=== PATIENT | female | born 1945 | race Caucasian/White ===

== ENCOUNTER 2016-04-19 10:53 | Inpatient (IN) | payer MEDICARE, BC, OTHER ==
[2016-04-19] MEDS ORDERED: ASPIRIN 81 MG TABLET, CHEWABLE PO ONE (11:59)
[2016-04-19 12:06] LABS: ABSOLUTE EOSINOPHILS # (AUTO) 0.2 10^3/uL (0.0-0.6); ABSOLUTE MONOCYTES (AUTO) 0.6 10^3/uL (0.1-1.4); ABSOLUTE NEUT (AUTO) 7.9 10^3/uL (1.7-8.2); BASOPHILS % (AUTO) 0.3 % (0-2); HEMATOCRIT 29.1 % (36.0-47.0); HEMOGLOBIN 9.8 g/dL (12.0-15.5); HGB HCT DIFFERENCE 0.3; LYMPHOCYTES % (AUTO) 9.9 % (13-45); MEAN CORPUSCULAR HEMOGLOBIN 32.7 pg (27.0-33.4); MEAN CORPUSCULAR HGB CONC 33.6 g/dL (32.0-36.0); MEAN CORPUSCULAR VOLUME 97 fl (80-97); MONOCYTES % (AUTO) 6.1 % (3-13); RED BLOOD COUNT 2.99 10^6/uL (3.72-5.28); RED CELL DISTRIBUTION WIDTH 15.4 % (11.5-14.0); SEGMENTED NEUTROPHILS % (AUTO) 81.7 % (42-78); WHITE BLOOD COUNT 9.7 10^3/uL (4.0-10.5)
[2016-04-19 12:25] LABS: ALANINE AMINOTRANSFERASE 26 U/L (9-52); ALBUMIN 3.3 g/dL (3.5-5.0); ALKALINE PHOSPHATASE 72 U/L (38-126); ANION GAP 10 (5-19); ASPARTATE AMINO TRANSFERASE 21 U/L (14-36); BILIRUBIN,TOTAL 0.6 mg/dL (0.2-1.3); BLOOD UREA NITROGEN 44 mg/dL (7-20); CALCIUM 9.2 mg/dL (8.4-10.2); CARBON DIOXIDE 22 mmol/L (22-30); CHLORIDE 97 mmol/L (98-107); CREATINE KINASE 101 U/L (30-135); CREATININE RESULT 3.06 mg/dL (0.52-1.25); GLUCOSE 217 mg/dL (75-110); POTASSIUM 5.3 mmol/L (3.6-5.0); SODIUM 129.1 mmol/L (137-145); TOTAL PROTEIN 6.2 g/dL (6.3-8.2)
[2016-04-19 12:53] LABS: CREATINE KINASE MB < 0.22 ng/mL (<4.55); TROPONIN I < 0.012 ng/mL
[2016-04-19] MEDS ORDERED: NORMAL SALINE 1000 ML 500 ML IV ONE (14:30)
--- NOTE | 2016-04-19 14:50 | ER Document Report ---
ED General - General Chief Complaint: Near Syncope Stated Complaint: WEAKNESS TRAVEL OUTSIDE OF THE [place] IN LAST 30 DAYS: No - HPI Patient complains to provider of: syncope generalized weakness Notes: Patient states coming in today for evaluation of syncope. Patient has history diabetes hypertension states she has been compliant with her medications. States no new medications in the last 2 weeks. Patient denies fevers chills nausea vomiting chest pain abdominal pain prior to after our during her physical episode. Patient states her sacral episode occurred while in the shower states she sat down to take a shower when next thing she remembers her was trying to arouse your patient is currently ANO 3. Family at bedside son-in-law states patient had multiple falls in the past few days. - Related Data Allergies/Adverse Reactions: codeine [Codeine] Allergy (Unknown, Verified 11/12/14 21:25) itching Cough medicine with Codeine Allergy (Intermediate, Uncoded 11/12/14 21:25) Hyperactivity IV contrast dye Allergy (Unknown, Uncoded 11/12/14 21:25) Kidney failure Home Medications: Current Home Medications Allopurinol [Zyloprim 100 mg Tablet] 200 mg PO DAILY 04/19/16 [History] Anastrozole [Arimidex 1 mg Tablet] 1 mg PO DAILY 04/19/16 [History] Carvedilol [Coreg 12.5 mg Tablet] 25 mg PO Q12 04/19/16 [History] Docusate Sodium [Colace 100 mg Capsule] 100 mg PO HSP PRN 04/19/16 [History] Ergocalciferol (Vitamin D2) [Vitamin D2] 50,000 unit PO TUFR@1000 04/19/16 [ History] Furosemide [Lasix] 20 mg PO DAILY 04/19/16 [History] Glyburide [Diabeta 5 mg Tablet] 5 mg PO BID 04/19/16 [History] Isosorbide Mononitrate [Imdur 60 mg Tablet.er] 60 mg PO QAM 04/19/16 [History] Losartan Potassium [Cozaar 50 mg Tablet] 50 mg PO DAILY 04/19/16 [History] Magnesium Oxide [Mag-Ox 400 mg Tablet] 400 mg PO DAILY 04/19/16 [History] Pantoprazole Sodium [Protonix] 40 mg PO QAM 04/19/16 [History] Sitagliptin Phosphate [Januvia 25 mg Tablet] 25 mg PO BID 04/19/16 [History] Past Medical History - Social History Smoking Status: Unknown if Ever Smoked Family History: Reviewed & Not Pertinent - Past Medical History Cardiac Medical History: Reports: Hx Congestive Heart Failure, Hx Coronary Artery Disease - stent placed, Hx Heart Attack, Hx Hypertension Pulmonary Medical History: Reports: Hx Asthma, Hx Pneumonia Denies: Hx Bronchitis, Hx COPD, Hx Sleep Apnea, Hx Tuberculosis Neurological Medical History: Reports: Hx Cerebrovascular Accident. Denies: Hx Seizures Endocrine Medical History: Reports: Hx Diabetes Mellitus Type 1, Hx Diabetes Mellitus Type 2. Denies: Hx Graves' Disease, Hx Hyperthyroidism, Hx Hypothyroidism Renal/ Medical History: Denies: Hx End Stage Renal Disease, Hx Peritoneal Dialysis Malignancy Medical History: Reports: Hx Breast Cancer - L GI Medical History: Reports: Hx Gastroesophageal Reflux Disease. Denies: Hx Liver Failure Musculoskeltal Medical History: Reports Hx Arthritis Psychiatric Medical History: Denies: Hx Depression Past Surgical History: Reports: Hx Cardiac Catheterization - 1X stent, Hx Section, Hx Cholecystectomy, Hx Mastectomy - L 08/23/11, Hx Tubal Ligation. Denies: Hx Hysterectomy, Hx Pacemaker - Immunizations Hx Diphtheria, Pertussis, Tetanus Vaccination: Yes Hx Pneumococcal Vaccination: 11/12/10 Review of Systems - Review of Systems Constitutional: No symptoms reported EENT: No symptoms reported Cardiovascular: Syncope Respiratory: No symptoms reported Gastrointestinal: No symptoms reported Genitourinary: No symptoms reported Female Genitourinary: No symptoms reported Musculoskeletal: No symptoms reported Skin: No symptoms reported Hematologic/Lymphatic: No symptoms reported Neurological/Psychological: No symptoms reported -: Yes All other systems reviewed and negative Physical Exam - Vital signs Vitals: Temp Resp BP Pulse Ox 97.2 F 15 117/58 L 98 04/19/16 11:08 04/19/16 11:08 04/19/16 11:08 04/19/16 11:08 Interpretation: Normal - General General appearance: Appears well, Alert - HEENT Head: Normocephalic, Atraumatic Eyes: Normal Pupils: PERRL - Respiratory Respiratory status: No respiratory distress Chest status: Nontender Breath sounds: Normal Chest palpation: Normal - Cardiovascular Rhythm: Regular Heart sounds: Normal auscultation Murmur: No - Abdominal Inspection: Normal Distension: No distension Bowel sounds: Normal Tenderness: Nontender Organomegaly: No organomegaly - Back Back: Normal, Nontender - Extremities General upper extremity: Normal inspection, Nontender, Normal color, Normal ROM , Normal temperature General lower extremity: Normal inspection, Nontender, Edema, Normal color, Normal ROM, Normal temperature. No: Jace's sign - Neurological Neuro grossly intact: Yes Cognition: Normal Orientation: AAOx4 Bee Coma Scale Eye Opening: Spontaneous Bee Coma Scale Verbal: Oriented Carey Coma Scale Motor: Obeys Commands Carey Coma Scale Total: 15 Speech: Normal Motor strength normal: LUE, RUE, LLE, RLE Sensory: Normal - Psychological Associated symptoms: Normal affect, Normal mood - Skin Skin Temperature: Warm Skin Moisture: Dry Skin Color: Normal Course - Re-evaluation Re-evalutation: 04/19/16 15:52 Patient's lab work shows hyperkalemia hyponatremia acute on chronic renal failure chronic anemia CT scan shows a subacute new right temporal infarction. Patient has yet to give us a urine sample IV fluids have been ordered. Patient' s orthostatics are negative. EKG troponin is also negative 04/19/16 15:53 Patient's case stress with hospitalist patient will be admitted for further evaluation of her syncopal episode and the above-stated laboratory and radiographical findings. - Vital Signs Vital signs: Temp Pulse Resp BP Pulse Ox 98.8 F 79 20 121/55 L 94 04/21/16 13:25 04/21/16 13:25 04/21/16 13:25 04/21/16 13:25 04/21/16 13:25 - Laboratory Result Diagrams: 04/19/16 11:00 04/20/16 03:38 Laboratory results interpreted by me: 04/19/16 04/19/16 11:00 11:00 RBC 2.99 L Hgb 9.8 L Hct 29.1 L RDW 15.4 H Seg Neutrophils % 81.7 H Lymphocytes % 9.9 L Sodium 129.1 L Potassium 5.3 H Chloride 97 L BUN 44 H Creatinine 3.06 H Est GFR ( Amer) 18 L Est GFR (Non-Af Amer) 15 L Glucose 217 H Total Protein 6.2 L Albumin 3.3 L Discharge - Discharge Clinical Impression: Chronic kidney disease, stage IV (severe), Hyperkalemia, subacute infarction right temporal Syncope Qualifiers: Syncope type: unspecified Qualified Code(s): R55 - Syncope and collapse Diabetes Qualifiers: Diabetes mellitus type: type 1 Diabetes mellitus complication status: without complication Qualified Code(s): E10.9 - Type 1 diabetes mellitus without complications Condition: Good Disposition: ADMITTED INPATIENT Admitting Provider: Prabhu Pennington [facility] Admitted: Telemetry
[2016-04-19] MEDS ORDERED: DEXTROSE 50%-WATER 25 GM/50 ML DISP.SYRIN IV PRN ×2 (16:17)
[2016-04-19] MEDS ORDERED: ACETAMINOPHEN 325 MG TABLET PO PRN (16:17)
[2016-04-19] MEDS ORDERED: DEXTROSE 40% GEL 15 GM TUBE PO PRN ×2 (16:17)
[2016-04-19] MEDS ORDERED: ONDANSETRON HCL INJ/PF 4 MG/2 ML SDV IV PRN (16:17)
[2016-04-19] MEDS ORDERED: GLUCAGON,HUMAN RECOMB 1 MG INJ IM PRN (16:17)
--- NOTE | 2016-04-19 16:45 | PDOC H&P ---
History of Present Illness Admission Date/PCP: 04/19/16 Patient complains of: LOC History of Present Illness: JENNIFER GRUBBS is a 71 year old female presents to the emergency department from home with sudden loss of consciousness. She awoke her usual state of health complaining of a new left-sided headache that was sharp stabbing over the left temporal lobe without associated vision or hearing loss and no numbness or tingling no slurred speech noted unilateral weakness no alleviating or exacerbating factors and nonradiating. She was able to get herself out of bed performing usual morning routine and as she was climbing into the stand up shower she felt weak and sat on the shower chair and awoke an unknown time later with her standing over her screaming and yelling to arouse her. Apparently her foot had occluded the drain and water had poured out of the shower into the adjoining bedroom alerting her there was a problem. He found her slumped over against the wall and unarousable for an unknown period of time. EMS was alerted on arrival her blood pressure was initially low systolic pressure only 80, IV was started IV fluid bolus given in route and she was transported to the ER for further evaluation. In the emergency department CT scan shows a subacute right lateral temporal lobe infarct, new when compared to prior CT scan of the head on 04/04/2016. We were asked to admit for further evaluation and management. By the time I evaluated her she was back to her baseline, without complaint. She is followed by Dr. Gonzales as her PCP, Dr. 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 Darby as her radio operator with a history of acute [place] and stent placement with ischemic cardiomyopathy and last known EF of less than 30% over 2 years ago on echocardiogram status post ICD placement, Dr. Amarjit Swartz for left breast cancer status post left mastectomy and lymph node dissection 2 positive nodes but no chemotherapy or radiation though she remains on hormone therapy. 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 She notes her radio operator was out of town 2 months ago and so she was seen by a partner who is unaware of her prior medical history and reportedly "changed all her meds" including increasing her aspirin to 325 mg daily and discontinuing the Plavix. Past Medical History Cardiac Medical History: Reports: Congestive Heart Failure, Coronary Artery Disease - stent placed, Myocardial Infarction, Hypertension Denies: Heart Murmur Pulmonary Medical History: Reports: Asthma, Pneumonia Denies: Bronchitis, Chronic Obstructive Pulmonary Disease (COPD), Sleep Apnea , Tuberculosis Neurological Medical History: Denies: Seizures Endocrine Medical History: Reports: Diabetes Mellitus Type 1, Diabetes Mellitus Type 2 Denies: Hyperthyroidism, Hypothyroidism Renal/ Medical History: Denies: End Stage Renal Disease Malignancy Medical History: Reports: Breast Cancer - L GI Medical History: Reports: Gastroesophageal Reflux Disease Musculoskeltal Medical History: Reports: Arthritis Psychiatric Medical History: Denies: Depression Hematology: Reports: Anemia Past Surgical History Past Surgical History: Reports: Cardiac Catheterization - 1X stent, Section, Cholecystectomy, Mastectomy - L 08/23/11, Tubal Ligation Denies: Hysterectomy, Pacemaker Social History Smoking Status: Unknown if Ever Smoked Frequency of Alcohol Use: None Hx Recreational Drug Use: No Hx Prescription Drug Abuse: No - Advance Directive Resuscitation Status: Full Code Family History Family History: Reviewed & Not Pertinent Parental Family History Reviewed: Yes Children Family History Reviewed: Yes Sibling(s) Family History Reviewed.: Yes Medication/Allergy Home Medications: Allopurinol [Zyloprim 100 mg Tablet] 100 mg PO DAILY 06/21/11 Aspirin Ec 325 mg PO DAILY 06/21/11 Coreg 25 mg PO BID 06/21/11 Furosemide [Lasix 20 mg Tablet] 20 mg PO Q2DAYS 06/21/11 Glyburide [Diabeta] 5 mg PO DAILY 06/21/11 Isosorbide 60 mg PO DAILY 06/21/11 Tolterodine Tartrate [Detrol LA] 2 mg PO DAILY 06/21/11 Vitamin D 50,000 units PO TUFR 06/21/11 Anastrozole [Arimidex 1 mg Tablet] 1 mg PO DAILY 10/02/11 Hydrocodone Bit/Acetaminophen [Vicodin 5-325 mg Tablet] 1 - 2 tab PO ASDIR PRN 10/07/11 Ezetimibe [Zetia 10 mg Tablet] 10 mg PO QPM 06/18/14 Hydralazine HCl [Apresoline 25 mg Tablet] 25 mg PO BID 06/18/14 Lorazepam 0.5 mg PO PRN PRN 06/18/14 Pantoprazole Sodium 40 mg PO QAM 06/18/14 Simvastatin [Zocor 20 mg Tablet] 20 mg PO QPM 06/18/14 Magnesium Oxide [Mag-Ox 400 mg Tablet] 400 mg PO DAILY #30 tablet 06/22/14 Amox Tr/Potassium Clavulanate [Augmentin 500-125 Tablet] 1 tab PO Q12 #12 tablet 11/02/14 Allergies/Adverse Reactions: codeine [Codeine] Allergy (Unknown, Verified 11/12/14 21:25) itching Cough medicine with Codeine Allergy (Intermediate, Uncoded 11/12/14 21:25) Hyperactivity IV contrast dye Allergy (Unknown, Uncoded 11/12/14 21:25) Kidney failure Review of Systems Constitutional: PRESENT: headache(s). ABSENT: chills, fever(s), weight gain, weight loss Eyes: ABSENT: visual disturbances Ears: ABSENT: hearing changes Nose, Mouth, and Throat: ABSENT: vertigo Cardiovascular: ABSENT: chest pain, dyspnea on exertion, edema, orthropnea, palpitations Respiratory: ABSENT: cough, hemoptysis Gastrointestinal: ABSENT: abdominal pain, constipation, diarrhea, hematemesis, hematochezia, nausea, vomiting Genitourinary: ABSENT: dysuria, hematuria Musculoskeletal: ABSENT: joint swelling Integumentary: ABSENT: rash, wounds Neurological: PRESENT: memory loss, syncope. ABSENT: abnormal gait, abnormal speech, confusion, dizziness, focal weakness, numbness, paresthesias, tingling Psychiatric: ABSENT: anxiety, depression Endocrine: ABSENT: cold intolerance, heat intolerance, polydipsia, polyuria Hematologic/Lymphatic: ABSENT: easy bleeding, easy bruising Physical Exam Vital Signs: Temp Pulse Resp BP Pulse Ox 97.2 F 72 13 148/67 H 98 04/19/16 11:08 04/19/16 12:32 04/19/16 16:01 04/19/16 16:01 04/19/16 16:01 PHYSICAL EXAM GENERAL: NAD; well developed, well nourished; mild obese; alert and oriented to person, place, time, situation; speech clear and lucid HEENT: normocephalic, atraumatic; EOMI, PERRLA, no conjunctival injection, no scleral icterus; oral mucosa moist,; neck supple, no LAD, normal ROM RESPIRATORY: no accessory muscle use, no increased WOB, good air entry bilaterally; no wheezes, rales, rhonchi; no inspiratory crackles CARDIO: no JVD; RRR; soft left-sided crescendo-decrescendo holo-systolic murmur at second intercostal space, nonradiating; no tachycardia; right anterior chest wall ICD pocket clean dry and intact VASCULAR: no carotid bruit; no abdominal bruit; no pallor; 2+ radial, DP pulse ; normal capillary refill; left AV fistula palpable thrill and audible bruit noted GI: soft; nondistended; normal bowel sounds; no hepato spleno megaly; no rebound, rigidity, guarding; nontender NEURO: normal patella reflexes; decreased sensation right lateral lower extremity below the knee, right lateral forearm, right cheek; normal motor function; no dysarthria; no nystagmus; tongue protrudes midline; normal finger to nose; able to cross midline with finger to ear MSK: 5/5 strength; normal ROM hips; no tenderness; bilateral knee contusions, no overlying erythema, no joint effusions EXTREMITIES: no calf tender; no palpable cords in calf; no clubbing, cyanosis , pedal edema PSYCH: normal affect, normal mood SKIN: warm; moist; no petechiae; no telengectasias; no jaundice; no rash Results Laboratory Results: 04/19/16 11:00 04/19/16 11:00 04/19/16 04/19/16 11:00 11:00 WBC 9.7 RBC 2.99 L Hgb 9.8 L Hct 29.1 L MCV 97 MCH 32.7 MCHC 33.6 RDW 15.4 H Plt Count 190 Seg Neutrophils % 81.7 H Lymphocytes % 9.9 L Monocytes % 6.1 Eosinophils % 2.0 Basophils % 0.3 Absolute Neutrophils 7.9 Absolute Lymphocytes 1.0 Absolute Monocytes 0.6 Absolute Eosinophils 0.2 Absolute Basophils 0.0 Sodium 129.1 L Potassium 5.3 H Chloride 97 L Carbon Dioxide 22 Anion Gap 10 BUN 44 H Creatinine 3.06 H Est GFR ( Amer) 18 L Est GFR (Non-Af Amer) 15 L Glucose 217 H Calcium 9.2 Total Bilirubin 0.6 AST 21 ALT 26 Alkaline Phosphatase 72 Total Protein 6.2 L Albumin 3.3 L 04/19/16 04/19/16 11:00 11:00 Creatine Kinase 101 CK-MB (CK-2) < 0.22 Troponin I < 0.012 Labs reviewed, renal function appears to be near baseline, sodium is slightly lower than normal. Impressions: Chest X-Ray 04/19/16 11:59 IMPRESSION: NO ACUTE RADIOGRAPHIC FINDING IN THE CHEST. Head CT 04/19/16 12:19 IMPRESSION: Subacute nonhemorrhagic infarct in the right lateral temporal lobe , new compared to outside CT from 04/04/2016 No acute findings on today's study Status: Image reviewed by me - Agree with radiology Assessment & Plan - Diagnosis (1) CVA (cerebral vascular accident) Qualifiers: CVA mechanism: unspecified Qualified Code(s): I63.9 - Cerebral infarction, unspecified Is this a current diagnosis for this admission?: YesPlan: Likely accounts for her presentation. We will check bilateral carotid Dopplers. Lipids and A1c in the morning. Change to Plavix from aspirin. Physical, occupational, speech therapy. Statin therapy. (2) Chronic kidney disease, stage IV (severe) Is this a current diagnosis for this admission?: YesPlan: Appears to be at baseline. BENTLEY inhibitor/ARB relatively contraindicated. We' ll need to consult with nephrology prior to initiating these medications. (3) Diabetes Qualifiers: Diabetes mellitus type: type 1 Diabetes mellitus complication status: without complication Qualified Code(s): E10.9 - Type 1 diabetes mellitus without complications Is this a current diagnosis for this admission?: YesPlan: Cover with sliding scale insulin. Check A1c in the morning. (4) Hyperkalemia Is this a current diagnosis for this admission?: YesPlan: Chronic or related to her underlying kidney disease, another contraindication for use of BENTLEY inhibitor and ARB. (5) Anemia in CKD (chronic kidney disease) Is this a current diagnosis for this admission?: YesPlan: Monitor H&H, no sign of acute blood loss. (6) Coronary artery disease Qualifiers: Coronary Disease-Associated Artery/Lesion type: [place] artery Associated angina: without angina Is this a current diagnosis for this admission?: YesPlan: Continue usual home regimen once clarified. List we have available does not include a beta orly for reasons that are not entirely clear to me given her history. (7) Hyperlipidemia Qualifiers: Hyperlipidemia type: unspecified Qualified Code(s): E78.5 - Hyperlipidemia, unspecified Is this a current diagnosis for this admission?: YesPlan: Check lipid panel in the morning, continue statin therapy (8) Hypertension Qualifiers: Hypertension type: secondary to other renal disorders Qualified Code (s): I15.1 - Hypertension secondary to other renal disorders; N28.89 - Other specified disorders of kidney and ureter Is this a current diagnosis for this admission?: YesPlan: Continue home regimen, may need to adjust to allow use of beta orly. (9) Ischemic cardiomyopathy Is this a current diagnosis for this admission?: YesPlan: Repeat echocardiogram to quantify LV function. ICD in place. If LV function less than 30% may be a candidate for warfarin therapy given the acute ischemic event. Not sure she would be willing to do so will need to discuss with her in detail (10) Cardiac murmur, unspecified Is this a current diagnosis for this admission?: YesPlan: Patient is unaware of cardiac murmur, Follow-up echocardiogram. (11) Syncope Qualifiers: Syncope type: unspecified Qualified Code(s): R55 - Syncope and collapse Is this a current diagnosis for this admission?: YesPlan: Monitor on telemetry overnight for cardiac dysrhythmias. Ask [employer] to interrogate the ICD. - Time Time Spent: Greater than 70 Minutes Medications reviewed and adjusted accordingly: Yes Anticipated discharge: Home with Homehealth Within: within 48 hours - Inpatient Certification Medical Necessity: Significant Comorbidiites Make Outpatient Treatment Too Risky , Need For Continuous Telemetry Monitoring, Need for Neurological Checks, Risk of Complication if Not Cared For in Hospital
[2016-04-19] MEDS ORDERED: CLOPIDOGREL BISULFATE 75 MG TABLET PO ONE (17:30)
[2016-04-19] MEDS: HEPARIN SOD (PORCINE) 5,000 UNIT/ML 1 ML SYRINGE SUBCUT SCH (21:30)
[2016-04-19] MEDS: FAMOTIDINE 20 MG TABLET PO SCH (21:30)
[2016-04-19] MEDS: ATORVASTATIN CALCIUM 40 MG TABLET PO SCH (21:30)
--- NOTE | 2016-04-19 21:45 | EKG REPORT ---
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
[2016-04-19] MEDS: INSULIN LISPRO 100 UNIT/ML 3 ML VIAL SUBCUT PRN (21:49)
[2016-04-20 04:13] LABS: ANION GAP 10 (5-19); BLOOD UREA NITROGEN 43 mg/dL (7-20); CALCIUM 9.5 mg/dL (8.4-10.2); CARBON DIOXIDE 24 mmol/L (22-30); CHLORIDE 99 mmol/L (98-107); CHOLESTEROL 139.33 mg/dL (0-200); CREATININE RESULT 3.01 mg/dL (0.52-1.25); Direct HDL 41 mg/dL (>40); GLUCOSE 182 mg/dL (75-110); POTASSIUM 4.8 mmol/L (3.6-5.0); SODIUM 133.2 mmol/L (137-145); TRIGLYCERIDES 177 mg/dL (<150)
[2016-04-20 04:29] LABS: DIRECT LDL 46 mg/dL (<100)
[2016-04-20 04:32] LABS: VLDL CHOLESTEROL 35.4 mg/dL (10-31)
[2016-04-20] MEDS: HEPARIN SOD (PORCINE) 5,000 UNIT/ML 1 ML SYRINGE SUBCUT SCH ×3 (06:00→21:34)
[2016-04-20] MEDS: CLOPIDOGREL BISULFATE 75 MG TABLET PO SCH (09:32)
[2016-04-20] MEDS: FAMOTIDINE 20 MG TABLET PO SCH ×2 (09:32→21:35)
--- NOTE | 2016-04-20 12:35 | PDOC PROGRESS REPORT ---
Subjective Progress Note for:: 04/20/16 Subjective:: Reason for visit: Follow-up CVA Hospital course:JENNIFER GRUBBS is a 71 year old female presents to the emergency department from home with sudden loss of consciousness. She awoke her usual state of health complaining of a new left-sided headache that was sharp stabbing over the left temporal lobe without associated vision or hearing loss and no numbness or tingling no slurred speech noted unilateral weakness no alleviating or exacerbating factors and nonradiating. She was able to get herself out of bed performing usual morning routine and as she was climbing into the stand up shower she felt weak and sat on the shower chair and awoke an unknown time later with her standing over her screaming and yelling to arouse her. Apparently her foot had occluded the drain and water had poured out of the shower into the adjoining bedroom alerting her there was a problem. He found her slumped over against the wall and unarousable for an unknown period of time. EMS was alerted on arrival her blood pressure was initially low systolic pressure only 80, IV was started IV fluid bolus given in route and she was transported to the ER for further evaluation. In the emergency department CT scan shows a subacute right lateral temporal lobe infarct, new when compared to prior CT scan of the head on 04/04/2016. We were asked to admit for further evaluation and management. By the time I evaluated her she was back to her baseline, without complaint. She is followed by Dr. Gonzales as her PCP, Dr. Iniguez as her wet suit gluer with a left AV fistula approximately 1 year old but not yet undergoing hemodialysis, Dr. Darby as her pricing associate with a history of acute SC and stent placement with ischemic cardiomyopathy and last known EF of less than 30% over 2 years ago on echocardiogram status post ICD placement, Dr. Amarjit Swartz for left breast cancer status post left mastectomy and lymph node dissection 2 positive nodes but no chemotherapy or radiation though she remains on hormone therapy. 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 She notes her pricing associate was out of town 2 months ago and so she was seen by a partner who is unaware of her prior medical history and reportedly "changed all her meds" including increasing her aspirin to 325 mg daily and discontinuing the Plavix. Subjective: She was admitted to a telemetry monitored bed did not show any evidence of cardiac dysrhythmia since admission and she said no recurrence of her symptoms. She's been up ambulating in the room with assistance, toileted without assistance and no recurrence of symptoms. States her left temporal lobe headache has resolved. She denies chest pain, palpitations, nausea, vomiting, diarrhea. ROS: per HPI plus a total of 10 systems reviewed, pertinent positives and negatives noted above, remaining systems negative. Physical Exam Vital Signs: Temp Pulse Resp BP Pulse Ox 97.7 F 66 17 144/60 H 100 04/20/16 11:38 04/20/16 11:38 04/20/16 11:38 04/20/16 11:38 04/20/16 11:38 Intake & Output 04/19/16 04/20/16 04/21/16 06:59 06:59 06:59 Intake Total 406 Balance 406 Weight 94.8 kg PHYSICAL EXAM GENERAL: NAD; well developed, well nourished; mild obese; alert and oriented to person, place, time, situation; speech clear and lucid HEENT: normocephalic, atraumatic; EOMI, PERRLA, no conjunctival injection, no scleral icterus; oral mucosa moist, RESPIRATORY: no accessory muscle use, no increased WOB, good air entry bilaterally; no wheezes, rales, rhonchi; no inspiratory crackles CARDIO: no JVD; RRR; soft left-sided crescendo-decrescendo holo-systolic murmur at second intercostal space, nonradiating; no tachycardia; right anterior chest wall ICD pocket clean dry and intact VASCULAR: no carotid bruit; no abdominal bruit; no pallor; 2+ radial, DP pulse ; normal capillary refill; left AV fistula palpable thrill and audible bruit noted GI: soft; nondistended; normal bowel sounds; no rebound, rigidity, guarding; nontender NEURO: normal patella reflexes; decreased sensation right lateral lower extremity below the knee, right lateral forearm, right cheek persistent; normal motor function; no dysarthria; no nystagmus; tongue protrudes midline; MSK: 5/5 strength; normal ROM hips; no tenderness; bilateral knee contusions, no overlying erythema, no joint effusions; ambulates with rolling walker and minimal assistance EXTREMITIES: no calf tender; no palpable cords in calf; no clubbing, cyanosis , pedal edema PSYCH: normal affect, normal mood SKIN: warm; moist; no petechiae; no telengectasias; no jaundice; no rash Results Laboratory Results: 04/20/16 03:38 04/20/16 03:38 Sodium 133.2 L Potassium 4.8 Chloride 99 Carbon Dioxide 24 Anion Gap 10 BUN 43 H Creatinine 3.01 H Est GFR ( Amer) 19 L Est GFR (Non-Af Amer) 15 L Glucose 182 H Calcium 9.5 Triglycerides 177 H Cholesterol 139.33 LDL Cholesterol Direct 46 VLDL Cholesterol 35.4 H HDL Cholesterol 41 04/19/16 04/20/16 19:58 03:38 Troponin I < 0.012 < 0.012 Impressions: Chest X-Ray 04/19/16 11:59 IMPRESSION: NO ACUTE RADIOGRAPHIC FINDING IN THE CHEST. Head CT 04/19/16 12:19 IMPRESSION: Subacute nonhemorrhagic infarct in the right lateral temporal lobe , new compared to outside CT from 04/04/2016 No acute findings on today's study Assessment & Plan - Diagnosis (1) Syncope Qualifiers: Syncope type: unspecified Qualified Code(s): R55 - Syncope and collapse Is this a current diagnosis for this admission?: YesPlan: Likely the result of the CVA. No evidence of cardiac dysrhythmia on overnight monitoring, Awaiting [employer] to interrogate the ICD. (2) CVA (cerebral vascular accident) Qualifiers: CVA mechanism: unspecified Qualified Code(s): I63.9 - Cerebral infarction, unspecified Is this a current diagnosis for this admission?: YesPlan: Likely accounts for her presentation. Awaiting the results of bilateral carotid Dopplers. Lipids and A1c show good control with current home regimen. Changed to Plavix from aspirin. Continue Physical, occupational, speech therapy; may benefit from home health with ongoing outpatient physical therapy. Continue Statin therapy. (3) Chronic kidney disease, stage IV (severe) Is this a current diagnosis for this admission?: Yes (4) Diabetes Qualifiers: Diabetes mellitus type: type 1 Diabetes mellitus complication status: without complication Qualified Code(s): E10.9 - Type 1 diabetes mellitus without complications Is this a current diagnosis for this admission?: Yes (5) Hyperkalemia Is this a current diagnosis for this admission?: Yes (6) Anemia in CKD (chronic kidney disease) Is this a current diagnosis for this admission?: Yes (7) Coronary artery disease Qualifiers: Coronary Disease-Associated Artery/Lesion type: robinson artery Associated angina: without angina Is this a current diagnosis for this admission?: YesPlan: Continue usual home regimen once clarified. List we have available does not include a beta orly for reasons that are not entirely clear to me given her history. (8) Hyperlipidemia Qualifiers: Hyperlipidemia type: unspecified Qualified Code(s): E78.5 - Hyperlipidemia, unspecified Is this a current diagnosis for this admission?: Yes (9) Hypertension Qualifiers: Hypertension type: secondary to other renal disorders Qualified Code (s): I15.1 - Hypertension secondary to other renal disorders; N28.89 - Other specified disorders of kidney and ureter Is this a current diagnosis for this admission?: Yes (10) Ischemic cardiomyopathy Is this a current diagnosis for this admission?: Yes (11) Cardiac murmur, unspecified Is this a current diagnosis for this admission?: Yes - Time Time Spent with patient: 25-34 minutes Anticipated discharge: Home with Homehealth Within: within 24 hours
[2016-04-20] MEDS: INSULIN LISPRO 100 UNIT/ML 3 ML VIAL SUBCUT PRN ×2 (18:10→22:03)
[2016-04-20] MEDS: ATORVASTATIN CALCIUM 40 MG TABLET PO SCH (21:35)
[2016-04-21] MEDS: HEPARIN SOD (PORCINE) 5,000 UNIT/ML 1 ML SYRINGE SUBCUT SCH (05:53)
[2016-04-21] MEDS: FAMOTIDINE 20 MG TABLET PO SCH (09:07)
[2016-04-21] MEDS: CLOPIDOGREL BISULFATE 75 MG TABLET PO SCH (09:08)
[2016-04-21] MEDS: INSULIN LISPRO 100 UNIT/ML 3 ML VIAL SUBCUT PRN (11:36)
--- NOTE | 2016-04-21 12:01 | XCELERA REPORT ---
[address] [address] Transthoracic Echocardiogram Report Name: JENNIFER GRUBBS Age: 71 yrs Gender: Female : 1945 Patient Status: Inpatient Patient Location: [id number]\303\[id number]\A Study Date: 04/20/2016 12:18 PM Height: 62 in Weight: 208 lb BSA: 1.9 m2 Procedure: A two-dimensional transthoracic echocardiogram with color flow and Doppler was performed. The study was technically difficult with many images being suboptimal in quality. Reason For Study: CVA; new murmur History: CVA / Murumr. Ordering Physician: DIONNA HASTINGS Performed By: Jun Lopez Interpretation Summary There is no obvious cardiac source of embolus noted on this transthoracic echocardiogram. Follow-up with a ARMAND is suggested if cardiac source is still suspected. The left ventricle is mildly dilated. There is thinning of the LV apex. LV EF is 50% Left ventricular systolic function is borderline reduced. Doppler measurements suggest impaired left ventricular relaxation, which is associated with grade I/IV or mild diastolic dysfunction Thete is hypokinesis of the LV apex. There is no thrombus. The RV is mildly enlarged with RVH,but normal LV systolic function.Pacemaker lead in RV . The left atrium is mildly dilated. There is no evidence of mitral valve prolapse. There is no mitral valve stenosis. There is a mild amount of mitral regurgitation There is aortic sclerosis without stenosis. There is no LVOT obstruction. There is no tricuspid stenosis. There is a mild amount of tricuspid regurgitation There is mild pulmonary hypertension by echo RVSP is 337 mm of Hg , with RA mean of 10. There is no pulmonic valvular stenosis. There is no pulmonic valvular regurgitation. The aortic root is normal size. There is no pericardial effusion. There is no obvious cardiac source of embolus noted on this transthoracic echocardiogram. Follow-up with a ARMAND is suggested if cardiac source is still suspected MMode/2D Measurements \T\ Calculations RVDd: 3.0 cm LVIDd: 6.3 cm FS: 27.0 % Ao root diam: IVSd: 1.0 cm LVIDs: 4.6 cm EDV(Teich): 3.0 cm LVPWd: 1.0 cm 200.3 ml Ao root area: ESV(Teich): 97.0 ml 7.1 cm2 EF(Teich): 51.6 % LA dimension: 4.2 cm LVLd ap4: 9.0 cm SV(MOD-sp4): EDV(MOD-sp4): 78.0 ml 163.0 ml LVLs ap4: 8.0 cm ESV(MOD-sp4): 85.0 ml EF(MOD-sp4): 47.9 % Doppler Measurements \T\ Calculations MV E max misti: MV P1/2t max misti: Ao V2 max: LV V1 max P.8 cm/sec 92.8 cm/sec 185.7 cm/sec 4.1 mmHg MV A max misti: MV P1/2t: 39.6 msec Ao max PG: LV V1 max: 108.6 cm/sec MVA(P1/2t): 5.6 cm2 13.8 mmHg 101.7 cm/sec MV E/A: 0.85 MV dec slope: 686.2 cm/sec2 MV dec time: 0.15 sec PA V2 max: TR max misti: RAP systole: 85.4 cm/sec 257.9 cm/sec 10.0 mmHg PA max P.9 mmHgTR max P.6 mmHg RVSP(TR): 36.6 mmHg Left Ventricle The left ventricle is mildly dilated. There is normal left ventricular wall thickness. There is thinning of the LV apex. LV EF is 50%. Left ventricular systolic function is borderline reduced. Doppler measurements suggest impaired left ventricular relaxation, which is associated with grade I/IV or mild diastolic dysfunction. Thete is hypokinesis of the LV apex. There is no thrombus. There is no ventricular septal defect visualized. Right Ventricle The RV is mildly enlarged with RVH,but normal LV systolic function.Pacemaker lead in RV . Atria The right atrium is normal. The left atrium is mildly dilated. The interatrial septum is intact with no evidence for an atrial septal defect. Mitral Valve There is mild mitral annular calcification. There is no evidence of mitral valve prolapse. There is no vegetation seen on the mitral valve. There is no mitral valve stenosis. There is a mild amount of mitral regurgitation. Aortic Valve There is no aortic valvular vegetation. There is aortic sclerosis without stenosis. There is no LVOT obstruction. No aortic regurgitation is present. Tricuspid Valve There is no tricuspid stenosis. There is a mild amount of tricuspid regurgitation. There is mild pulmonary hypertension by echo. RVSP is 337 mm of Hg , with RA mean of 10. Pulmonic Valve There is no pulmonic valvular stenosis. There is no pulmonic valvular regurgitation. Great Vessels The aortic root is normal size. Effusions There is no pericardial effusion. : DIONNA HASTINGS > Ilsa Matthews
[2016-04-21 13:28] VITALS: BP 121/55
--- NOTE | 2016-04-21 13:47 | PDOC DISCHARGE SUMMARY ---
General - Admit/Disc Date/PCP Admission Date/Primary Care Provider: 04/19/16 16:18 Discharge Date: 04/21/16 - Discharge Diagnosis (1) Syncope Is this a current diagnosis for this admission?: YesSummary: Likely the result of the CVA. No evidence of cardiac dysrhythmia on overnight monitoring, [employer] interrogated the ICD and found no evidence for any events and >10yrs battery life remaining. (2) CVA (cerebral vascular accident) Is this a current diagnosis for this admission?: YesSummary: Likely accounts for her presentation. bilateral carotid Dopplers show plaqueing and varying degrees of stenosis, Rt 50-69% proximal ICA, Lf <50% stenosis proximal ICA. Lipids and A1c show good control with current home regimen. Changed to Plavix from aspirin. Increase to max dose Statin therapy. (3) Cardiac murmur, unspecified Is this a current diagnosis for this admission?: YesSummary: echo performed and no obvious source for the murmur; see report for full details. (4) PAD (peripheral artery disease) Is this a current diagnosis for this admission?: YesSummary: carotid stenosis as noted in report; recommend max dose statin and outpt referral to vascular surgery in the next few weeks for further treatment options. (5) Chronic kidney disease, stage IV (severe) Is this a current diagnosis for this admission?: Yes (6) Diabetes Is this a current diagnosis for this admission?: Yes (7) Hyperkalemia Is this a current diagnosis for this admission?: Yes (8) Anemia in CKD (chronic kidney disease) Is this a current diagnosis for this admission?: Yes (9) Coronary artery disease Is this a current diagnosis for this admission?: Yes (10) Hyperlipidemia Is this a current diagnosis for this admission?: Yes (11) Hypertension Is this a current diagnosis for this admission?: Yes (12) Ischemic cardiomyopathy Is this a current diagnosis for this admission?: Yes - Additional Information Resuscitation Status: Full Code Discharge Diet: Diabetic Discharge Activity: Activity As Tolerated Home Medications: Allopurinol [Zyloprim 100 mg Tablet] 200 mg PO DAILY 04/19/16 Anastrozole [Arimidex 1 mg Tablet] 1 mg PO DAILY 04/19/16 Carvedilol [Coreg 12.5 mg Tablet] 25 mg PO Q12 04/19/16 Docusate Sodium [Colace 100 mg Capsule] 100 mg PO HSP PRN 04/19/16 Ergocalciferol (Vitamin D2) [Vitamin D2] 50,000 unit PO TUFR@1000 04/19/16 Furosemide [Lasix] 20 mg PO DAILY 04/19/16 Glyburide [Diabeta 5 mg Tablet] 5 mg PO BID 04/19/16 Isosorbide Mononitrate [Imdur 60 mg Tablet.er] 60 mg PO QAM 04/19/16 Losartan Potassium [Cozaar 50 mg Tablet] 50 mg PO DAILY 04/19/16 Magnesium Oxide [Mag-Ox 400 mg Tablet] 400 mg PO DAILY 04/19/16 Pantoprazole Sodium [Protonix] 40 mg PO QAM 04/19/16 Sitagliptin Phosphate [Januvia 25 mg Tablet] 25 mg PO BID 04/19/16 Acetaminophen [Tylenol 325 mg Tablet] 650 mg PO Q4HP PRN tablet 04/21/16 Atorvastatin Calcium [Lipitor 80 mg Tablet] 80 mg PO QHS #30 tablet 04/21/16 Clopidogrel Bisulfate [Plavix 75 mg Tablet] 75 mg PO DAILY #30 tablet 04/21/16 History of Present Illness Patient complains of: LOC History of Present Illness: JENNIFER GRUBBS is a 71 year old female presents to the emergency department from home with sudden loss of consciousness. She awoke her usual state of health complaining of a new left-sided headache that was sharp stabbing over the left temporal lobe without associated vision or hearing loss and no numbness or tingling no slurred speech noted unilateral weakness no alleviating or exacerbating factors and nonradiating. She was able to get herself out of bed performing usual morning routine and as she was climbing into the stand up shower she felt weak and sat on the shower chair and awoke an unknown time later with her standing over her screaming and yelling to arouse her. Apparently her foot had occluded the drain and water had poured out of the shower into the adjoining bedroom alerting her there was a problem. He found her slumped over against the wall and unarousable for an unknown period of time. Hospital Course Hospital Course: EMS was alerted on arrival her blood pressure was initially low systolic pressure only 80, IV was started IV fluid bolus given in route and she was transported to the ER for further evaluation. In the emergency department CT scan shows a subacute right lateral temporal lobe infarct, new when compared to prior CT scan of the head on 04/04/2016. We were asked to admit for further evaluation and management. By the time I evaluated her she was back to her baseline, without complaint. She is followed by Dr. Gonzales as her PCP, Dr. Iniguez as her waiver analyst with a left AV fistula approximately 1 year old but not yet undergoing hemodialysis, Dr. Darby as her tobacco flavorer with a history of acute MA and stent placement with ischemic cardiomyopathy and last known EF of less than 30% over 2 years ago on echocardiogram status post ICD placement, Dr. Amarjit Swartz for left breast cancer status post left mastectomy and lymph node dissection 2 positive nodes but no chemotherapy or radiation though she remains on hormone therapy. 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 She notes her tobacco flavorer was out of town 2 months ago and so she was seen by a partner who is unaware of her prior medical history and reportedly "changed all her meds" including increasing her aspirin to 325 mg daily and discontinuing the Plavix. she underwent CT head, echo, carotid dopplers and multiple lab evaluation with the findings noted in the respective reports; essentially to modify her risk for recurrent stroke we should increase her statin to max dose, change from ASA to plavix and refer to vascular surgery as an outpt for evaluation and treatment options in the next few weeks. she is to resume her home regimen for HTN and continue care of her DM as her A1c is good at 7.6. she is able to ambulate on her own and PT/OT/ST do not recommend skilled or ongoing rehab. she is stable for d/c home at this time and expresses no concerns to me about going home to day. she is to reutrn to the ED <3hr for recurrent symptoms, both she and her son express understanding and willingness to comply understanding the narrow window of opportunity we have for tPa/ thrombolytics. Physical Exam Vital Signs: Temp Pulse Resp BP Pulse Ox 98.8 F 79 20 183/84 H 94 04/21/16 11:31 04/21/16 11:31 04/21/16 11:31 04/21/16 11:31 04/21/16 11:31 Intake & Output 04/20/16 04/21/16 04/22/16 06:59 06:59 06:59 Intake Total 406 842 200 Balance 406 842 200 Weight 94.8 kg 93.8 kg PHYSICAL EXAM GENERAL: NAD; well developed, well nourished; mild obese; alert and oriented to person, place, time, situation; speech clear and lucid HEENT: normocephalic, atraumatic; EOMI, PERRLA, no conjunctival injection, no scleral icterus; oral mucosa moist, RESPIRATORY: no accessory muscle use, no increased WOB, good air entry bilaterally; no wheezes, rales, rhonchi; no inspiratory crackles CARDIO: no JVD; RRR; soft left-sided crescendo-decrescendo holo-systolic murmur at second intercostal space, nonradiating; no tachycardia; right anterior chest wall ICD pocket clean dry and intact VASCULAR: no carotid bruit; no abdominal bruit; no pallor; 2+ radial, DP pulse ; normal capillary refill; left AV fistula palpable thrill and audible bruit noted GI: soft; nondistended; normal bowel sounds; no rebound, rigidity, guarding; nontender NEURO: normal patella reflexes; resolution of the decreased sensation right lateral lower extremity below the knee, right lateral forearm, right cheek persistent; normal motor function; no dysarthria; no nystagmus; tongue protrudes midline; MSK: 5/5 strength; normal ROM hips; no tenderness; bilateral knee contusions, no overlying erythema, no joint effusions; ambulates without assistance EXTREMITIES: no calf tender; no palpable cords in calf; no clubbing, cyanosis , pedal edema PSYCH: normal affect, normal mood SKIN: warm; moist; no petechiae; no telengectasias; no jaundice; no rash Results Laboratory Results: 04/20/16 03:38 04/19/16 04/20/16 19:58 03:38 Troponin I < 0.012 < 0.012 Impressions: Chest X-Ray 04/19/16 11:59 IMPRESSION: NO ACUTE RADIOGRAPHIC FINDING IN THE CHEST. Head CT 04/19/16 12:19 IMPRESSION: Subacute nonhemorrhagic infarct in the right lateral temporal lobe , new compared to outside CT from 04/04/2016 No acute findings on today's study Carotid Doppler Study 04/20/16 00:00 IMPRESSION: Right: 50- 69% stenosis proximal ICA based on Doppler criteria. Left: Less than 50% stenosis proximal ICA. Qualifiers PATEINT BEING DISCHARGED WITH ANY OF THE FOLLOWING DIAGNOSIS?: Stroke VTE patient discharged on overlapping Therapy?: No Reason(s) for not prescribing Overlap Therapy:: Not indicated Stroke Pt being discharged on Anti-thrombolytic therapy?: Yes Stroke Pt being discharged on Anti-coagulation therapy?: No Reason(s) for not prescribing Anti-coagulation therapy:: Not indicated Stroke Pt being discharged on Statins?: Yes Plan Time Spent: Greater than 30 Minutes
== END 2016-04-21 13:59 | disposition home or self-care (01) | DRG 65 ==
LOC: ER 10:53 → EH 16:18 → OBSVTOIN 16:18 → EH 16:56 → UNDOADMOB 16:56 → 3N 17:35
PROVIDERS: ADMIT Internal Medicine; ATTEND Internal Medicine
DX: I63.9 Cerebral infarction, unspecified (principal); N18.4 Chronic kidney disease, stage 4 (severe); N17.9 Acute kidney failure, unspecified; R01.1 Cardiac murmur, unspecified; E11.51 Type 2 diabetes mellitus with diabetic peripheral angiopathy without gangrene; I12.9 Hypertensive chronic kidney disease with stage 1 through stage 4 chronic kidney disease, or unspecified chronic kidney disease; E11.22 Type 2 diabetes mellitus with diabetic chronic kidney disease; D63.1 Anemia in chronic kidney disease; E87.5 Hyperkalemia; I25.10 Atherosclerotic heart disease of native coronary artery without angina pectoris; E78.5 Hyperlipidemia, unspecified; I25.5 Ischemic cardiomyopathy; I50.9 Heart failure, unspecified; M19.90 Unspecified osteoarthritis, unspecified site; J45.909 Unspecified asthma, uncomplicated; K21.9 Gastro-esophageal reflux disease without esophagitis; I25.2 Old myocardial infarction; Z95.5 Presence of coronary angioplasty implant and graft; Z79.82 Long term (current) use of aspirin; Z79.899 Other long term (current) drug therapy; Z85.3 Personal history of malignant neoplasm of breast; Z90.12 Acquired absence of left breast and nipple; Z79.02 Long term (current) use of antithrombotics/antiplatelets; Z90.49 Acquired absence of other specified parts of digestive tract; Z88.6 Allergy status to analgesic agent; Z91.041 Radiographic dye allergy status
CPT/HCPCS: 36415; 70450; 71010; 80048; 80053; 80061; 82550; 82553; 82962; 83036; 84484; 85025; 93005; 93010; 93306; 93880; 96360; 99285; G8978-GP; G8979-GP; G8980-GP; G8987-GO; G8988-GO; G8989-GO; J1644; J1815; J3490; J7030

== ENCOUNTER → 2016-05-10 | Outpatient (CLI) | payer MEDICARE, BC, OTHER | LOC: WI 09:08 | PROVIDERS: ATTEND Internal Medicine | DX: Z12.31 Encounter for screening mammogram for malignant neoplasm of breast (principal) | CPT/HCPCS: G0202-52 ==

== ENCOUNTER → 2016-08-18 | Outpatient (CLI) | payer MEDICARE, BC, OTHER ==
[2016-08-18 13:22] LABS: ABSOLUTE EOSINOPHILS # (AUTO) 0.2 10^3/uL (0.0-0.6); ABSOLUTE LYMPHOCYTES (AUTO) 1.1 10^3/uL (0.5-4.7); ABSOLUTE MONOCYTES (AUTO) 0.5 10^3/uL (0.1-1.4); ABSOLUTE NEUT (AUTO) 4.4 10^3/uL (1.7-8.2); BASOPHILS % (AUTO) 0.6 % (0-2); EOSINOPHILS % (AUTO) 2.5 % (0-6); HEMOGLOBIN 9.3 g/dL (12.0-15.5); HGB HCT DIFFERENCE -0.1; LYMPHOCYTES % (AUTO) 17.9 % (13-45); MEAN CORPUSCULAR HEMOGLOBIN 32.2 pg (27.0-33.4); MEAN CORPUSCULAR HGB CONC 33.4 g/dL (32.0-36.0); MEAN CORPUSCULAR VOLUME 97 fl (80-97); MONOCYTES % (AUTO) 7.8 % (3-13); RED CELL DISTRIBUTION WIDTH 17.9 % (11.5-14.0); SEGMENTED NEUTROPHILS % (AUTO) 71.2 % (42-78); WHITE BLOOD COUNT 6.2 10^3/uL (4.0-10.5)
[2016-08-18 13:46] LABS: CALCIUM 8.6 mg/dL (8.4-10.2); CARBON DIOXIDE 23 mmol/L (22-30); GLUCOSE 146 mg/dL (75-110); SODIUM 128.3 mmol/L (137-145)
[2016-08-18 13:48] LABS: URINE CREATININE 46.3 mg/dL (15-278)
[2016-08-18 14:01] LABS: ANION GAP 10 (5-19); BLOOD UREA NITROGEN 45 mg/dL (7-20); CHLORIDE 95 mmol/L (98-107); CREATININE RESULT 2.83 mg/dL (0.52-1.25)
== END ==
LOC: OD 12:35
PROVIDERS: ATTEND Internal Medicine Nephrology
DX: I10 Essential (primary) hypertension (principal)
CPT/HCPCS: 36415; 80048; 82570; 84156; 85025

== ENCOUNTER → 2016-11-14 | Outpatient (CLI) | payer MEDICARE, BC, OTHER ==
[2016-11-14 10:11] LABS: ABSOLUTE EOSINOPHILS # (AUTO) 0.1 10^3/uL (0.0-0.6); ABSOLUTE LYMPHOCYTES (AUTO) 0.8 10^3/uL (0.5-4.7); ABSOLUTE MONOCYTES (AUTO) 0.4 10^3/uL (0.1-1.4); ABSOLUTE NEUT (AUTO) 4.8 10^3/uL (1.7-8.2); BASOPHILS % (AUTO) 0.4 % (0-2); EOSINOPHILS % (AUTO) 2.1 % (0-6); HEMOGLOBIN 8.1 g/dL (12.0-15.5); HGB HCT DIFFERENCE 0.3; LYMPHOCYTES % (AUTO) 12.8 % (13-45); MEAN CORPUSCULAR HEMOGLOBIN 32.6 pg (27.0-33.4); MEAN CORPUSCULAR HGB CONC 33.9 g/dL (32.0-36.0); MEAN CORPUSCULAR VOLUME 96 fl (80-97); MONOCYTES % (AUTO) 6.2 % (3-13); RED BLOOD COUNT 2.49 10^6/uL (3.72-5.28); RED CELL DISTRIBUTION WIDTH 16.2 % (11.5-14.0); SEGMENTED NEUTROPHILS % (AUTO) 78.5 % (42-78); WHITE BLOOD COUNT 6.2 10^3/uL (4.0-10.5)
[2016-11-14 10:44] LABS: ALBUMIN 3.4 g/dL (3.5-5.0); ANION GAP 11 (5-19); BLOOD UREA NITROGEN 46 mg/dL (7-20); CALCIUM 9.4 mg/dL (8.4-10.2); CARBON DIOXIDE 22 mmol/L (22-30); CHLORIDE 101 mmol/L (98-107); CREATININE RESULT 3.21 mg/dL (0.52-1.25); GLUCOSE 176 mg/dL (75-110); PHOSPHORUS 4.4 mg/dL (2.5-4.5); POTASSIUM 5.6 mmol/L (3.6-5.0); SODIUM 133.7 mmol/L (137-145)
[2016-11-14 10:48] LABS: URINE CREATININE 43.2 mg/dL (15-278)
== END ==
LOC: OD 09:15
PROVIDERS: ATTEND Internal Medicine Nephrology
DX: N18.4 Chronic kidney disease, stage 4 (severe) (principal); D63.1 Anemia in chronic kidney disease; N25.81 Secondary hyperparathyroidism of renal origin
CPT/HCPCS: 36415; 80069; 82570; 83970; 84156; 85025

== ENCOUNTER → 2016-11-24 | Outpatient (CLI) | payer MEDICARE, BC, OTHER ==
[2016-11-24 09:29] LABS: ANION GAP 12 (5-19); BLOOD UREA NITROGEN 36 mg/dL (7-20); CALCIUM 9.4 mg/dL (8.4-10.2); CARBON DIOXIDE 22 mmol/L (22-30); CHLORIDE 99 mmol/L (98-107); CREATININE RESULT 3.04 mg/dL (0.52-1.25); GLUCOSE 100 mg/dL (75-110); POTASSIUM 5.6 mmol/L (3.6-5.0); SODIUM 132.5 mmol/L (137-145)
== END ==
LOC: OD 08:43
PROVIDERS: ATTEND Internal Medicine Cardiovascular Disease
DX: N18.4 Chronic kidney disease, stage 4 (severe) (principal)
CPT/HCPCS: 36415; 80048

== ENCOUNTER → 2017-01-10 | Outpatient (CLI) | payer MEDICARE, BC, OTHER ==
--- NOTE | 2017-01-10 15:01 | RADIOLOGY REPORT (SQ) ---
EXAM DESCRIPTION: SHOULDER LEFT 2 OR MORE VIEWS COMPLETED DATE/TIME: 01/10/2017 1:50 pm REASON FOR STUDY: INJURY OF LEFT SHOULDER, INITIAL ENCOUNTER S49.92XA UNSP INJURY OF LEFT SHOULDER AND UPPER ARM, INIT EN COMPARISON: Chest x-ray dated 04/19/2016 and 11/12/2014. NUMBER OF VIEWS: Three views. TECHNIQUE: Internal rotation, external rotation, and Y view images acquired of the left shoulder. LIMITATIONS: None. FINDINGS: MINERALIZATION: Normal. BONES: Old fracture of the humeral neck. Chronic appearing deformity of the humeral head. No defini te acute fracture or dislocation. JOINTS: No dislocation. VISUALIZED LUNGS AND RIBS: No pneumothorax. No rib fracture. SOFT TISSUES: No radiopaque foreign body. OTHER: No other significant finding. IMPRESSION: OLD FRACTURE OF THE LEFT HUMERAL NECK AND CHRONIC DEFORMITY OF THE LEFT HUMERAL HEAD. N O APPARENT ACUTE FINDINGS. TECHNICAL DOCUMENTATION: JOB ID: [id number] [employer]- All Rights Reserved
== END ==
LOC: OD 13:35
PROVIDERS: ATTEND Family Medicine
DX: S49.92XA Unspecified injury of left shoulder and upper arm, initial encounter (principal); X58.XXXA Exposure to other specified factors, initial encounter; Y93.9 Activity, unspecified; Y92.9 Unspecified place or not applicable; Y99.9 Unspecified external cause status

== ENCOUNTER → 2017-02-02 | Outpatient (CLI) | payer MEDICARE, BC, OTHER ==
[2017-02-02 15:05] LABS: ALBUMIN 3.2 g/dL (3.5-5.0); ANION GAP 11 (5-19); BLOOD UREA NITROGEN 29 mg/dL (7-20); CALCIUM 9.2 mg/dL (8.4-10.2); CARBON DIOXIDE 24 mmol/L (22-30); CHLORIDE 99 mmol/L (98-107); CREATININE RESULT 2.87 mg/dL (0.52-1.25); GLUCOSE 124 mg/dL (75-110); PHOSPHORUS 3.7 mg/dL (2.5-4.5); POTASSIUM 4.9 mmol/L (3.6-5.0); SODIUM 133.8 mmol/L (137-145)
== END ==
LOC: OD 13:42
PROVIDERS: ATTEND Internal Medicine Nephrology
DX: N18.4 Chronic kidney disease, stage 4 (severe) (principal); N25.81 Secondary hyperparathyroidism of renal origin
CPT/HCPCS: 36415; 80069

== ENCOUNTER → 2017-02-26 | Outpatient (CLI) | payer MEDICARE, BC, OTHER ==
[2017-02-26 11:15] LABS: ALBUMIN 3.5 g/dL (3.5-5.0); ANION GAP 8 (5-19); BLOOD UREA NITROGEN 38 mg/dL (7-20); CALCIUM 9.7 mg/dL (8.4-10.2); CARBON DIOXIDE 28 mmol/L (22-30); CHLORIDE 101 mmol/L (98-107); GLUCOSE 157 mg/dL (75-110); PHOSPHORUS 4.4 mg/dL (2.5-4.5); POTASSIUM 4.9 mmol/L (3.6-5.0); SODIUM 137.4 mmol/L (137-145)
[2017-02-26 12:48] LABS: URINE CREATININE 63.7 mg/dL (15-278)
[2017-02-26 13:10] LABS: URINE PROTEIN 610.9 mg/dL (<12)
== END ==
LOC: OD 10:12
PROVIDERS: ATTEND Internal Medicine Nephrology
DX: N18.4 Chronic kidney disease, stage 4 (severe) (principal); E11.65 Type 2 diabetes mellitus with hyperglycemia; N25.81 Secondary hyperparathyroidism of renal origin
CPT/HCPCS: 36415; 80069; 82570; 83970; 84156

== ENCOUNTER → 2017-03-09 | Outpatient (CLI) | payer MEDICARE, BC, OTHER ==
--- NOTE | 2017-03-09 16:43 | RADIOLOGY REPORT (SQ) ---
EXAM DESCRIPTION: U/S NON-OB PELVIS LTD W/O DOP COMPLETED DATE/TIME: 03/09/2017 3:41 pm REASON FOR STUDY: UTI N39.0 URINARY TRACT INFECTION, SITE NOT SPECIFIED COMPARISON: None. TECHNIQUE: Pre and post void bladder imaging. LIMITATIONS: None. FINDINGS: PREVOID BLADDER VOLUME: 104 ml. POST VOID BLADDER VOLUME: 51 ml. OTHER: Small amount of debris noted. No other significant finding. IMPRESSION: NO SONOGRAPHIC ABNORMALITY IN THE BLADDER. BLADDER VOLUMES ABOVE. TECHNICAL DOCUMENTATION: JOB ID: [id number] [employer]- All Rights Reserved
== END ==
LOC: RAD 14:54
PROVIDERS: ATTEND Internal Medicine Nephrology
DX: N39.0 Urinary tract infection, site not specified (principal)
CPT/HCPCS: 76857

== ENCOUNTER 2017-03-22 02:08 | Emergency (ER) | payer MEDICARE, BC, OTHER | END 2017-03-22 04:00 | disposition left against medical advice (07) | LOC: ER 02:08 | DX: Z53.21 Procedure and treatment not carried out due to patient leaving prior to being seen by health care provider (principal) ==

== ENCOUNTER → 2017-05-04 | Outpatient (CLI) | payer MEDICARE, BC, OTHER ==
[2017-05-04 10:05] LABS: ABSOLUTE EOSINOPHILS # (AUTO) 0.2 10^3/uL (0.0-0.6); ABSOLUTE LYMPHOCYTES (AUTO) 1.1 10^3/uL (0.5-4.7); ABSOLUTE MONOCYTES (AUTO) 0.4 10^3/uL (0.1-1.4); ABSOLUTE NEUT (AUTO) 5.1 10^3/uL (1.7-8.2); BASOPHILS % (AUTO) 0.5 % (0-2); HEMATOCRIT 31.8 % (36.0-47.0); HEMOGLOBIN 10.3 g/dL (12.0-15.5); LYMPHOCYTES % (AUTO) 15.9 % (13-45); MEAN CORPUSCULAR HEMOGLOBIN 29.7 pg (27.0-33.4); MEAN CORPUSCULAR HGB CONC 32.4 g/dL (32.0-36.0); MEAN CORPUSCULAR VOLUME 92 fl (80-97); MONOCYTES % (AUTO) 6.1 % (3-13); PLATELET COUNT 192 10^3/uL (150-450); RED BLOOD COUNT 3.48 10^6/uL (3.72-5.28); RED CELL DISTRIBUTION WIDTH 17.4 % (11.5-14.0); SEGMENTED NEUTROPHILS % (AUTO) 74.5 % (42-78); TOTAL CELLS COUNTED % (AUTO) 100 %; WHITE BLOOD COUNT 6.8 10^3/uL (4.0-10.5)
[2017-05-04 10:31] LABS: ALBUMIN 3.2 g/dL (3.5-5.0); ANION GAP 5 (5-19); BLOOD UREA NITROGEN 44 mg/dL (7-20); CALCIUM 9.1 mg/dL (8.4-10.2); CARBON DIOXIDE 26 mmol/L (22-30); CHLORIDE 101 mmol/L (98-107); GLUCOSE 147 mg/dL (75-110); PHOSPHORUS 5.2 mg/dL (2.5-4.5); POTASSIUM 5.3 mmol/L (3.6-5.0); SODIUM 131.8 mmol/L (137-145)
[2017-05-04 11:18] LABS: URINE CREATININE 51.7 mg/dL (15-278)
[2017-05-04 11:24] LABS: UR PRO/CREAT RATIO RESULT 8.1 mg/mg (0.0-0.2); URINE PROTEIN 417.3 mg/dL (<12)
--- NOTE | 2017-05-04 12:33 | RADIOLOGY REPORT (SQ) ---
EXAM DESCRIPTION: HAND RIGHT 3 VIEWS COMPLETED DATE/TIME: 05/04/2017 10:39 am REASON FOR STUDY: PAIN IN RIGHT HAND N18.9 CHRONIC KIDNEY DISEASE, UNSPECIFIED M79.641 PAIN IN RIG HT HAND COMPARISON: Right wrist 08/20/2015 EXAM PARAMETERS: NUMBER OF VIEWS: Three views. TECHNIQUE: AP, lateral and oblique radiographic images acquired of the right hand. LIMITATIONS: None. FINDINGS: MINERALIZATION: Normal. BONES: There is deformity of the distal radius from a remote fracture. On the oblique view there can be seen to be an oblique fracture of the 5th metacarpal mild dorsal angulation. JOINTS: No effusions. SOFT TISSUES: No soft tissue swelling. No foreign body. OTHER: No other significant finding. IMPRESSION: Acute or subacute fracture of the right 5th metacarpal with old fracture of the distal r adius. TECHNICAL DOCUMENTATION: JOB ID: [id number] [employer]- All Rights Reserved Reading location - IP/workstation name: [email or web address]
== END ==
LOC: OD 09:41
PROVIDERS: ATTEND Internal Medicine Nephrology
DX: N18.4 Chronic kidney disease, stage 4 (severe) (principal); N25.81 Secondary hyperparathyroidism of renal origin
CPT/HCPCS: 36415; 80069; 82570; 83970; 84156; 85025

== ENCOUNTER → 2017-06-21 | Outpatient (CLI) | payer MEDICARE, BC, OTHER ==
--- NOTE | 2017-06-21 11:56 | WOMENS IMAGING REPORT ---
EXAM DESCRIPTION: RIGHT SCREENING MAMMO W/CAD COMPLETED DATE/TIME: 06/21/2017 11:05 am REASON FOR STUDY: SCREENING MAMMO; Z12.31 Z12.31 ENCNTR SCREEN MAMMOGRAM FOR MALIGNANT NEOPLASM OF [place] COMPARISON: [id number] TECHNIQUE: Standard craniocaudal and mediolateral oblique views of the breast recorded using digital acquisition. LIMITATIONS: Battery pack. FINDINGS: BREAST: right Findings present which are benign by mammographic criteria. No suspicious masses, calcifications or a rchitectural distortion. Pertinent benign findings: Microcalcifications. Read with the assistance of CAD. .[facility] - R2 C[employer] Version 1.3 .[facility] - R2 Cenova Version 1.3 .[facility] - R2 Cenova Version 2.4 .[facility] [place] - R2 Cenova Version 2.4 .[facility] - R2 [employer] Version 9.2 Benign mammographic findings may include one or more of the following: Smooth masses, popcorn/rim/co arse calcifications, asymmetries, post-procedure changes, and lesions with long-standing stability. IMPRESSION: NORMAL MAMMOGRAM. BIRADS 2. BREAST DENSITY: a. The breasts are almost entirely fatty. BIRAD: 2 BENIGN FINDING(S) RECOMMENDATION: RECOMMENDATION: ROUTINE SCREENING. COMMENT: The patient has been notified of the results by letter per SA requirements. Additional no tification policies are in place for contacting patient with suspicious or incomplete findings. Quality ID #225: The [employer] recommends an annual screening mammogram for women aged 40 years or over. This facility utilizes a reminder system to ensure that all patients receive reminder letters, and/or direct phone calls for appointments. This includes reminders for routine scr eening mammograms, diagnostic mammograms, or other Breast Imaging Interventions when appropriate. Th is patient will be placed in the appropriate reminder system. The [employer] (ACR) has developed recommendations for screening MRI of the breast s in certain patient populations, to be used in conjunction with mammography. Breast MRI surveillance may be appropriate for women with more than 20% lifetime risk of developing breast cancer as determi ariadne by genetic testing, significant family history of the disease, or history of mantle radiation for Hodgkins Disease. ACR Practice Guidelines 2008. TECHNICAL DOCUMENTATION: FINDING NUMBER: (1) ASSESSMENT: (1) JOB ID: [id number] [employer]- All Rights Reserved Reading location - IP/workstation name: [facility]
== END ==
LOC: WI 07:34
PROVIDERS: ATTEND Family Medicine
DX: Z12.31 Encounter for screening mammogram for malignant neoplasm of breast (principal)

== ENCOUNTER → 2017-06-21 | Outpatient (CLI) | payer MEDICARE, BC, OTHER ==
[2017-06-21 08:50] LABS: ABSOLUTE EOSINOPHILS # (AUTO) 0.2 10^3/uL (0.0-0.6); ABSOLUTE LYMPHOCYTES (AUTO) 1.1 10^3/uL (0.5-4.7); ABSOLUTE MONOCYTES (AUTO) 0.5 10^3/uL (0.1-1.4); ABSOLUTE NEUT (AUTO) 4.8 10^3/uL (1.7-8.2); BASOPHILS % (AUTO) 0.6 % (0-2); EOSINOPHILS % (AUTO) 3.6 % (0-6); HEMATOCRIT 33.2 % (36.0-47.0); HEMOGLOBIN 10.9 g/dL (12.0-15.5); LYMPHOCYTES % (AUTO) 16.5 % (13-45); MEAN CORPUSCULAR HEMOGLOBIN 30.9 pg (27.0-33.4); MEAN CORPUSCULAR HGB CONC 32.7 g/dL (32.0-36.0); MEAN CORPUSCULAR VOLUME 94 fl (80-97); MONOCYTES % (AUTO) 7.1 % (3-13); PLATELET COUNT 190 10^3/uL (150-450); RED BLOOD COUNT 3.52 10^6/uL (3.72-5.28); RED CELL DISTRIBUTION WIDTH 18.5 % (11.5-14.0); SEGMENTED NEUTROPHILS % (AUTO) 72.2 % (42-78); TOTAL CELLS COUNTED % (AUTO) 100 %; WHITE BLOOD COUNT 6.6 10^3/uL (4.0-10.5)
[2017-06-21 09:18] LABS: ANION GAP 13 (5-19); BLOOD UREA NITROGEN 41 mg/dL (7-20); CALCIUM 9.1 mg/dL (8.4-10.2); CARBON DIOXIDE 23 mmol/L (22-30); CHLORIDE 98 mmol/L (98-107); GLUCOSE 136 mg/dL (75-110); POTASSIUM 5.1 mmol/L (3.6-5.0); SODIUM 133.6 mmol/L (137-145)
== END ==
LOC: OD 08:08
PROVIDERS: ATTEND Internal Medicine Nephrology
DX: I12.9 Hypertensive chronic kidney disease with stage 1 through stage 4 chronic kidney disease, or unspecified chronic kidney disease (principal); N18.4 Chronic kidney disease, stage 4 (severe); R80.9 Proteinuria, unspecified
CPT/HCPCS: 36415; 80048; 83970; 85025

== ENCOUNTER → 2017-07-02 | Outpatient (CLI) | payer MEDICARE, BC, OTHER ==
[2017-07-02 11:36] LABS: ALBUMIN 3.4 g/dL (3.5-5.0); ANION GAP 12 (5-19); BLOOD UREA NITROGEN 39 mg/dL (7-20); CALCIUM 9.1 mg/dL (8.4-10.2); CARBON DIOXIDE 21 mmol/L (22-30); CHLORIDE 102 mmol/L (98-107); GLUCOSE 137 mg/dL (75-110); PHOSPHORUS 5.7 mg/dL (2.5-4.5); POTASSIUM 5.5 mmol/L (3.6-5.0); SODIUM 134.7 mmol/L (137-145)
== END ==
LOC: OD 10:08
PROVIDERS: ATTEND Internal Medicine Nephrology
DX: N18.4 Chronic kidney disease, stage 4 (severe) (principal)
CPT/HCPCS: 36415; 80069

== ENCOUNTER 2017-07-30 18:11 | Emergency (ER) | payer MEDICARE, BC, OTHER ==
--- NOTE | 2017-07-30 19:04 | RADIOLOGY REPORT (SQ) ---
EXAM DESCRIPTION: CT CERVICAL SPINE WITHOUT COMPLETED DATE/TIME: 07/30/2017 6:53 pm REASON FOR STUDY: fall COMPARISON: None. TECHNIQUE: Axial images acquired through the cervical spine without intravenous contrast. Images re viewed with lung, soft tissue and bone windows. Reconstructed coronal and sagittal MPR images review ed. Images stored on PACS. All CT scanners at this facility use dose modulation, iterative reconstruction, and/or weight based d osing when appropriate to reduce radiation dose to as low as reasonably achievable (ALARA). [facility]: Dose Right [facility]: CareDose [facility]: Dose Right [facility]: Teradose 4D [facility]: Smart RecordSetter RADIATION DOSE: CT Rad equipment meets quality standard of care and radiation dose reduction techniq ues were employed. CTDIvol: 23.7 mGy. DLP: 455 mGy-cm. mGy. LIMITATIONS: None. FINDINGS: ALIGNMENT: Anatomic. MINERALIZATION: Normal. VERTEBRAL BODIES: No fractures or dislocation. DISCS: The C5-6 disc space is narrowed with anterior and posterior osteophytes. There is focal calci fication in the posterior longitudinal ligament at C4-5. FACETS, LATERAL MASSES, POSTERIOR ELEMENTS: No fractures. No dislocation. No acute findings. HARDWARE: None in the spine. VISUALIZED RIBS: No fractures. LUNG APICES AND SOFT TISSUES: No significant or acute findings. OTHER: No other significant finding. IMPRESSION: Degenerative disc disease with spondylosis. Calcification in the posterior longitudinal ligament at C4-5. No acute findings. TECHNICAL DOCUMENTATION: JOB ID: [id number] Quality ID # [id number]: Final reports with documentation of one or more dose reduction techniques (e.g., Au tomated exposure control, adjustment of the mA and/or kV according to patient size, use of iterative reconstruction technique) 2010 [employer]- All Rights Reserved Reading location - IP/workstation name: [email or web address]
--- NOTE | 2017-07-30 19:10 | RADIOLOGY REPORT (SQ) ---
EXAM DESCRIPTION: CT FACIAL AREA WITHOUT COMPLETED DATE/TIME: 07/30/2017 6:53 pm REASON FOR STUDY: fall COMPARISON: None. TECHNIQUE: Noncontrasted images through the facial bones and orbits windowed for bone and soft tissu e. Additional coronal and sagittal reconstructed images reviewed. All images stored on PACS. All CT scanners at this facility use dose modulation, iterative reconstruction, and/or weight based d osing when appropriate to reduce radiation dose to as low as reasonably achievable (ALARA). [facility]: Dose Right [facility]: CareDose [facility]: Dose Right [facility]: Teradose 4D [facility]: Smart Technologies RADIATION DOSE: CT Rad equipment meets quality standard of care and radiation dose reduction techniq ues were employed. CTDIvol: 30.4 mGy. DLP: 566 mGy-cm. mGy. LIMITATIONS: None. FINDINGS: FACIAL BONES: No fracture or bone lesion. ORBITS: Intact. No fracture. Symmetric intact globes and retroorbital soft tissues. PARANASAL SINUSES: There is almost complete opacification of the left maxillary sinus and some of the left ethmoid air cells. No nasal polyps. SOFT TISSUES: There is soft tissue swelling and subcutaneous hematoma in the left side of the face an d in the periorbital area. INFERIOR BRAIN: See separate report of CT of the brain. OTHER: No other significant finding. IMPRESSION: 1. Left facial soft tissue swelling/hematoma as described. No fracture. 2. Left maxillary and ethmoid sinus disease. TECHNICAL DOCUMENTATION: JOB ID: [id number] Quality ID # [id number]: Final reports with documentation of one or more dose reduction techniques (e.g., Au tomated exposure control, adjustment of the mA and/or kV according to patient size, use of iterative reconstruction technique) 2010 [employer]- All Rights Reserved Reading location - IP/workstation name: [email or web address]
--- NOTE | 2017-07-30 19:11 | RADIOLOGY REPORT (SQ) ---
EXAM DESCRIPTION: CT HEAD WITHOUT COMPLETED DATE/TIME: 07/30/2017 6:53 pm REASON FOR STUDY: fall COMPARISON: None. 04/19/2016 TECHNIQUE: Axial images acquired through the brain without intravenous contrast. Images reviewed wi th bone, brain and subdural windows. Images stored on PACS. All CT scanners at this facility use dose modulation, iterative reconstruction, and/or weight based d osing when appropriate to reduce radiation dose to as low as reasonably achievable (ALARA). [facility]: Dose Right [facility]: CareDose [facility]: Dose Right [facility]: Teradose 4D [facility]: Smart Technologies RADIATION DOSE: CT Rad equipment meets quality standard of care and radiation dose reduction techniq ues were employed. CTDIvol: 53.2 mGy. DLP: 964 mGy-cm. mGy. LIMITATIONS: Motion artifact. FINDINGS: VENTRICLES: Prominent. CEREBRUM: No masses. No hemorrhage. No midline shift. Areas of low density in the white matter mos t likely due to chronic micro-vascular ischemic change. Old infarct right temporal region stable. CEREBELLUM: No masses. No hemorrhage. No alteration of density. No evidence for acute infarction. EXTRAAXIAL SPACES: Mild age-related involutional change. No fluid collections. No masses. ORBITS AND GLOBE: CT facial bones to follow. CALVARIUM: No fracture. PARANASAL SINUSES: Opacification left maxillary antrum, sphenoid and ethmoid region. CT facial bones to follow SOFT TISSUES: Large scalp hematoma on the left. Underlying calvarium intact. CT facial bones to fol low. OTHER: No other significant finding. IMPRESSION: Old infarct on the right. Changes atrophy and microvascular ischemic change. Scalp hematoma on the left. Underlying calvarium appears intact. No acute intracranial hemorrhage. EVIDENCE OF ACUTE STROKE: NO. TECHNICAL DOCUMENTATION: JOB ID: [id number] Quality ID # 436: Final reports with documentation of one or more dose reduction techniques (e.g., Au tomated exposure control, adjustment of the mA and/or kV according to patient size, use of iterative reconstruction technique) 2010 [employer]- All Rights Reserved Reading location - IP/workstation name: [facility]
--- NOTE | 2017-07-30 19:12 | RADIOLOGY REPORT (SQ) ---
EXAM DESCRIPTION: CHEST SINGLE VIEW COMPLETED DATE/TIME: 07/30/2017 6:59 pm REASON FOR STUDY: fall COMPARISON: 04/19/2016 EXAM PARAMETERS: NUMBER OF VIEWS: One view. TECHNIQUE: Single frontal radiographic view of the chest acquired. RADIATION DOSE: NA LIMITATIONS: None. FINDINGS: LUNGS AND PLEURA: Mild pulmonary vascular prominence. No infiltrate or effusion. MEDIASTINUM AND HILAR STRUCTURES: No masses. Contour normal. HEART AND VASCULAR STRUCTURES: Cardiomegaly. BONES: No acute findings. HARDWARE: Pacemaker/ defibrillator on the right. OTHER: No other significant finding. IMPRESSION: Cardiomegaly with pulmonary vascular prominence but no tyler CHF. TECHNICAL DOCUMENTATION: JOB ID: [id number] [employer] All Rights Reserved Reading location - IP/workstation name: [email or web address]
--- NOTE | 2017-07-30 19:13 | RADIOLOGY REPORT (SQ) ---
EXAM DESCRIPTION: SHOULDER LEFT 2 OR MORE VIEWS COMPLETED DATE/TIME: 07/30/2017 6:59 pm REASON FOR STUDY: fall, pain, bruising COMPARISON: None. NUMBER OF VIEWS: Three views. TECHNIQUE: Internal rotation, external rotation, and Y view images acquired of the left shoulder. LIMITATIONS: None. FINDINGS: MINERALIZATION: Normal. BONES: Deformity of the left humeral head/neck. No acute fracture or dislocation is seen. JOINTS: No dislocation. VISUALIZED LUNGS AND RIBS: No pneumothorax. No rib fracture. SOFT TISSUES: Subacromial space is narrowed. OTHER: No other significant finding. IMPRESSION: Old fracture of the left humeral head/neck with no acute osseous abnormality. Narrowing of the subacromial space suggests chronic rotator cuff disease. TECHNICAL DOCUMENTATION: JOB ID: [id number] [employer]- All Rights Reserved Reading location - IP/workstation name: [email or web address]
[2017-07-30 19:20] LABS: ABSOLUTE EOSINOPHILS # (AUTO) 0.2 10^3/uL (0.0-0.6); ABSOLUTE MONOCYTES (AUTO) 0.5 10^3/uL (0.1-1.4); BASOPHILS % (AUTO) 0.4 % (0-2); EOSINOPHILS % (AUTO) 2.2 % (0-6); HEMATOCRIT 33.1 % (36.0-47.0); HEMOGLOBIN 10.7 g/dL (12.0-15.5); LYMPHOCYTES % (AUTO) 11.3 % (13-45); MEAN CORPUSCULAR HEMOGLOBIN 30.7 pg (27.0-33.4); MEAN CORPUSCULAR HGB CONC 32.2 g/dL (32.0-36.0); MEAN CORPUSCULAR VOLUME 95 fl (80-97); MONOCYTES % (AUTO) 5.3 % (3-13); PLATELET COUNT 173 10^3/uL (150-450); RED BLOOD COUNT 3.47 10^6/uL (3.72-5.28); RED CELL DISTRIBUTION WIDTH 17.3 % (11.5-14.0); SEGMENTED NEUTROPHILS % (AUTO) 80.8 % (42-78); TOTAL CELLS COUNTED % (AUTO) 100 %; WHITE BLOOD COUNT 8.7 10^3/uL (4.0-10.5)
[2017-07-30 19:29] LABS: INTERNATIONAL RATION (INR) 1.13; PROTHROMBIN TIME 15.1 SEC (11.4-15.4)
[2017-07-30 19:34] LABS: ALANINE AMINOTRANSFERASE 22 U/L (9-52); ALKALINE PHOSPHATASE 79 U/L (38-126); ANION GAP 10 (5-19); ASPARTATE AMINO TRANSFERASE 24 U/L (14-36); BILIRUBIN,DIRECT 0.5 mg/dL (0.0-0.4); BILIRUBIN,TOTAL 0.5 mg/dL (0.2-1.3); BLOOD UREA NITROGEN 51 mg/dL (7-20); CALCIUM 8.5 mg/dL (8.4-10.2); CARBON DIOXIDE 20 mmol/L (22-30); CHLORIDE 102 mmol/L (98-107); CREATINE KINASE 80 U/L (30-135); GLUCOSE 142 mg/dL (75-110); POTASSIUM 5.7 mmol/L (3.6-5.0); TOTAL PROTEIN 5.8 g/dL (6.3-8.2)
[2017-07-30] MEDS ORDERED: FENTANYL CITRATE INJ/PF 100 MCG/2 ML AMPUL IV PRN (19:36)
--- NOTE | 2017-07-30 19:54 | ER Document Report ---
ED General - General Chief Complaint: Fall Injury Stated Complaint: FALL/FACIAL INJURY Time Seen by Provider: 07/30/17 19:17 Notes: Patient is a 72-year-old female with a past medical history of CHF, status post defibrillator pacemaker placement, chronic kidney disease without dialysis dependence, hypertension, who presents after a fall today in which he struck the left side of her face. The patient and family are uncertain of what was the trigger for the fall as the patient was home alone at that time. The patient is uncertain whether or not she had syncope today. At the time of my evaluation she notes a severe, throbbing, aching pain to the left side of her face and forehead. Applying ice to the area improves the pain. Any touching of the area worsens the pain. There is an associated soft tissue and skin avulsion to the right forehead. Patient also notes a mild pain to her left shoulder but denies any pain or trauma to any other area of her body. She denies any focal weakness or numbness. No recent weight gain. Family at the bedside notes that for the past 1-2 weeks the patient has had more of a frequent cough and appears more short of breath than usual. She has been taking all medications as prescribed. She has not contacted her primary care doctor regarding today's concerns. She denies any chest pain, shortness of breath, nausea or vomiting. TRAVEL OUTSIDE OF THE [place] IN LAST 30 DAYS: No - Related Data Allergies/Adverse Reactions: codeine [Codeine] Allergy (Unknown, Verified 07/30/17 20:56) itching Cough medicine with Codeine Allergy (Intermediate, Uncoded 11/12/14 21:25) Hyperactivity IV contrast dye Allergy (Unknown, Uncoded 11/12/14 21:25) Kidney failure Past Medical History - General Information source: Patient - Social History Smoking Status: Never Smoker Chew tobacco use (# tins/day): No Frequency of alcohol use: None Drug Abuse: None Lives with: Family Family History: Reviewed & Not Pertinent Patient has suicidal ideation: No Patient has homicidal ideation: No - Past Medical History Cardiac Medical History: Reports: Hx Congestive Heart Failure, Hx Coronary Artery Disease - stent placed, Hx Heart Attack, Hx Hypertension Denies: Hx Heart Murmur Pulmonary Medical History: Reports: Hx Asthma, Hx Pneumonia Denies: Hx Bronchitis, Hx COPD, Hx Sleep Apnea, Hx Tuberculosis Neurological Medical History: Reports: Hx Cerebrovascular Accident. Denies: Hx Seizures Endocrine Medical History: Reports: Hx Diabetes Mellitus Type 1, Hx Diabetes Mellitus Type 2. Denies: Hx Graves' Disease, Hx Hyperthyroidism, Hx Hypothyroidism Renal/ Medical History: Denies: Hx End Stage Renal Disease, Hx Peritoneal Dialysis Malignancy Medical History: Reports: Hx Breast Cancer - L GI Medical History: Reports: Hx Gastroesophageal Reflux Disease. Denies: Hx Liver Failure Musculoskeltal Medical History: Reports Hx Arthritis Psychiatric Medical History: Denies: Hx Depression Past Surgical History: Reports: Hx Cardiac Catheterization - 1X stent, Hx Cardiac Surgery - pacemaker/defibulator, Hx Section, Hx Cholecystectomy , Hx Mastectomy - L 08/23/11, Hx Tubal Ligation. Denies: Hx Hysterectomy, Hx Pacemaker - Immunizations Hx Diphtheria, Pertussis, Tetanus Vaccination: Yes Hx Pneumococcal Vaccination: 11/12/10 Review of Systems - Review of Systems Notes: Constitutional: Negative for fever. Eyes: Negative for visual changes. ENT: Positive for facial injury Cardiovascular: Negative for chest injury. Respiratory: Negative for shortness of breath. Gastrointestinal: Negative for abdominal injury. Genitourinary: Negative for genital injury Musculoskeletal: Negative for back injury. Skin: Positive for laceration/abrasions. Neurological: Positive for head injury. Physical Exam - Vital signs Vitals: Resp Pulse Ox 16 95 07/30/17 18:26 07/30/17 18:26 Interpretation: Normal Notes: PHYSICAL EXAMINATION: GENERAL: Appears mildly uncomfortable but no acute distress HEAD: There is bruising and swelling along the left forehead, left maxillary sinus area as well as over the left cheek. There is a traumatic ecchymosis surrounding the left orbital socket. EYES: Closure of the left eyelids secondary to swelling and bruising. After the eyelid was opened on the left eye examination was able to be completed. Pupils equal round and reactive to light, extraocular movements intact, sclera anicteric, conjunctiva are normal. No evidence of entrapment or proptosis. ENT: nares patent, no oral pharyngeal trauma. No hemotympanum, no Fallon's sign , no raccoon eyes. NECK: No midline cervical spine tenderness. Patient able to move their head to 45 bilaterally without any discomfort. LUNGS: Breath sounds clear to auscultation bilaterally and equal. No wheezes rales or rhonchi. HEART: Regular rate and rhythm without murmurs. CHEST WALL: No ecchymosis over the chest wall. ABDOMEN: Soft, nontender, normoactive bowel sounds. No guarding, no rebound. No abdominal bruising EXTREMITIES: Normal range of motion, 1+ pitting edema that is equal and symmetric to the bilateral lower extremities.. No long bone deformities. BACK: No midline spinal tenderness, step-offs, or deformities. NEUROLOGICAL: Face symmetric. Tongue protrudes midline. Extraocular motions intact. Pupils are 2 mm and equally reactive. Normal speech. 5 out of 5 strength in both the distal and proximal upper and lower extremities bilaterally. Sensation is grossly intact throughout. Finger to nose testing normal. Pronator drift normal. PSYCH: Normal mood, normal affect. SKIN: Warm, Dry, normal turgor, there is a skin avulsion to the left forehead overlying an area of a hematoma Course - Re-evaluation Re-evalutation: 07/30/17 19:52 Presentation of a well appearing elderly patient in no acute distress, vitals within normal limits after a fall. Patient is uncertain of whether or not she fell or whether or not she passed out. She does however have a defibrillator in place which we will interrogate to monitor for any dysrhythmia that could have occurred and triggered her fall. No focal neurologic deficits on exam, no evidence of basilar skull fracture on exam without evidence of hemotympanum, raccoon eyes, or periauricular hematoma. No papilledema. Patient is not on anticoagulation. GCS is 15. No loss of consciousness. No episodes of vomiting. However, based on patient's age a CT of the head has been obtained which is negative for any acute intracranial bleed. Likewise, patient was unable to be clinically cleared due to age by [place] cervical spine criteria. A CT of the cervical spine was also obtained and likewise is negative for any acute fracture. No indication for further imaging of the cervical spine. CT the face likewise does not show any acute facial fractures. The patient does have a skin avulsion and hematoma over the left forehead which has been dressed and cleaned. Her tetanus is already up to date. Patient has no focal deformities or limited range of motion in any joint space. She did complain of some left shoulder pain and x-ray to the area is unremarkable. Chest and abdominal exam are benign without any focal tenderness, shortness of breath, or bruising over the chest or abdominal wall. Patient has no flank tenderness. Patient's chest x-ray does show vascular congestion and she has a known history of congestive heart failure. She has had some mild cough over the past 2 weeks although she is not hypoxic nor tachypneic. Her laboratories show chronic kidney disease, renal function is at baseline. BNP and troponin are pending. Patient is otherwise extremely well in appearance, laughing and joking with me and her family on examination. Will await interrogation of her defibrillator pacemaker as well as laboratory results. 07/30/17 20:53 I have discussed the event monitor with [employer], they report no dysrhythmic events at any time point today. No shocks delivered. No need for overdrive pacing. This is very reassuring and points to more likely a mechanical fall as the etiology of today's presentation. Patient's troponin is normal. BNP is elevated over baseline. Patient has been given a dose of IV furosemide here in the emergency department and we will increase her furosemide from 20 mg daily to 40 mg daily for the next 3 days. I have encouraged the patient to follow-up closely with her primary doctor regarding these changes and the need for follow- up laboratories. Patient and family are extremely comfortable with discharge home, eager to leave. At this time will discharge with return precautions and follow-up recommendations. Verbal discharge instructions given a the bedside and opportunity for questions given. Medication warnings reviewed. Patient is in agreement with this plan and has verbalized understanding of return precautions and the need for primary care follow-up in the next 24-72 hours. - Vital Signs Vital signs: Temp Pulse Resp BP Pulse Ox 98.1 F 16 148/71 H 95 07/30/17 19:15 07/30/17 21:02 07/30/17 21:02 07/30/17 21:02 - Laboratory Result Diagrams: 07/30/17 19:10 07/30/17 19:10 Laboratory results interpreted by me: 07/30/17 07/30/17 07/30/17 19:10 19:10 19:10 RBC 3.47 L Hgb 10.7 L Hct 33.1 L RDW 17.3 H Seg Neutrophils % 80.8 H Lymphocytes % 11.3 L Sodium 132.0 L Potassium 5.7 H Carbon Dioxide 20 L BUN 51 H Creatinine 3.10 H Est GFR ( Amer) 18 L Est GFR (Non-Af Amer) 15 L Glucose 142 H Direct Bilirubin 0.5 H NT-Pro-B Natriuret Pep 3250 H Total Protein 5.8 L Albumin 3.0 L - Diagnostic Test Radiology reviewed: Image reviewed, Reports reviewed Radiology results interpreted by me: 07/30/17 20:58 CT head: No acute intracranial bleed or mass Chest x-ray: Vascular congestion, cardiomegaly but no overt pulmonary edema - EKG Interpretation by Me Additional EKG results interpreted by me: 07/30/17 20:59 Sinus rhythm. Rate 79. First-degree AV block. Unchanged from prior. No ST elevations or depressions. QTC is 496. Discharge - Discharge Clinical Impression: Skin avulsion, Pulmonary vascular congestion Facial trauma Qualifiers: Encounter type: initial encounter Qualified Code(s): S09.93XA - Unspecified injury of face, initial encounter Head trauma Qualifiers: Encounter type: initial encounter Qualified Code(s): S09.90XA - Unspecified injury of head, initial encounter Fall Qualifiers: Encounter type: initial encounter Qualified Code(s): W19.XXXA - Unspecified fall, initial encounter Chronic kidney disease Qualifiers: Chronic kidney disease stage: unspecified stage Qualified Code(s): N18.9 - Chronic kidney disease, unspecified Condition: Stable Disposition: HOME, SELF-CARE Additional Instructions: You have been seen in the Emergency Department (ED) today following a fall. Your workup today did not reveal any injuries that require you to stay in the hospital. You can expect, though, to be stiff and sore for the next several days. You should apply an ice pack to the area as needed for pain and swelling. Take Tylenol 1000 mg every 6 hours as needed for pain that is not controlled by ice pack application. Very small amount of oral morphine tablets has been prescribed which he can use for severe pain not controlled by Tylenol. Take 1/2-1 tablet every 8 hours as needed for pain not controlled by Tylenol. Your chest x-ray today shows that your congestive heart failure has likely resulted in some extra fluid being in your lungs. Please take a total of 40 mg of Lasix each morning for the next 3 days and then return to your normal dosing of 20 mg daily. Please contact your plating technician regarding this medication dosing change. Call your doctor or return to the ED if you develop a sudden or severe headache , confusion, slurred speech, facial droop, weakness or numbness in any arm or leg, extreme fatigue, vomiting more than two times, severe abdominal pain, or other symptoms that concern you. Prescriptions: Morphine Sulfate [Morphine Ir 15 mg Tablet] 7.5 - 15 mg PO Q8HP PRN #12 tablet PRN Reason: Referrals: CAS DENG MD [NO LOCAL MD] - Follow up as needed
[2017-07-30 19:58] LABS: CREATINE KINASE MB 2.04 ng/mL (<4.55)
[2017-07-30 19:59] LABS: TROPONIN I < 0.012 ng/mL
[2017-07-30] MEDS ORDERED: FUROSEMIDE INJ/PF 20 MG/2 ML SDV IV ONE (20:59)
[2017-07-30 21:20] VITALS: BP 148/71
--- NOTE | 2017-07-30 22:16 | EKG REPORT ---
SEVERITY:- ABNORMAL ECG - SINUS RHYTHM FIRST DEGREE AV BLOCK RIGHT BUNDLE BRANCH BLOCK ANTEROSEPTAL INFARCT, AGE INDETERM : Confirmed by: Mary Jo Landry 30-Jul-2017 22:16:04
== END 2017-07-30 21:35 | disposition home or self-care (01) ==
LOC: ER 18:11
DX: S01.81XA Laceration without foreign body of other part of head, initial encounter (principal); R51 Headache; M25.512 Pain in left shoulder; W19.XXXA Unspecified fall, initial encounter; Y92.002 Bathroom of unspecified non-institutional (private) residence as the place of occurrence of the external cause; I44.0 Atrioventricular block, first degree; E11.22 Type 2 diabetes mellitus with diabetic chronic kidney disease; I13.0 Hypertensive heart and chronic kidney disease with heart failure and stage 1 through stage 4 chronic kidney disease, or unspecified chronic kidney disease; I50.9 Heart failure, unspecified; N18.9 Chronic kidney disease, unspecified; R09.89 Other specified symptoms and signs involving the circulatory and respiratory systems; I25.10 Atherosclerotic heart disease of native coronary artery without angina pectoris; J45.909 Unspecified asthma, uncomplicated; R05 Cough; Z88.5 Allergy status to narcotic agent; Z88.8 Allergy status to other drugs, medicaments and biological substances; Z91.041 Radiographic dye allergy status; Z95.810 Presence of automatic (implantable) cardiac defibrillator; Z95.5 Presence of coronary angioplasty implant and graft; Z85.3 Personal history of malignant neoplasm of breast; Z79.899 Other long term (current) drug therapy
CPT/HCPCS: 93005; 99284; 96374; 96375; 36415; 82553; 82550; 85025; 85610; 80053; 84484; 83880; 71045; 73030; 70450; 70486; 72125; 93010; J3010; J1940

== ENCOUNTER → 2017-10-01 | Outpatient (CLI) | payer MEDICARE, BC, OTHER ==
[2017-10-01 14:20] LABS: ALBUMIN 3.1 g/dL (3.5-5.0); ANION GAP 11 (5-19); BLOOD UREA NITROGEN 38 mg/dL (7-20); CALCIUM 8.8 mg/dL (8.4-10.2); CARBON DIOXIDE 21 mmol/L (22-30); CHLORIDE 103 mmol/L (98-107); GLUCOSE 117 mg/dL (75-110); PHOSPHORUS 5.6 mg/dL (2.5-4.5); POTASSIUM 5.3 mmol/L (3.6-5.0); SODIUM 135.2 mmol/L (137-145)
[2017-10-01 14:42] LABS: URINE CREATININE 26.4 mg/dL (15-278)
== END ==
LOC: OD 12:57
PROVIDERS: ATTEND Internal Medicine Nephrology
DX: I12.9 Hypertensive chronic kidney disease with stage 1 through stage 4 chronic kidney disease, or unspecified chronic kidney disease (principal); N18.4 Chronic kidney disease, stage 4 (severe); R80.9 Proteinuria, unspecified; E11.9 Type 2 diabetes mellitus without complications
CPT/HCPCS: 36415; 80069; 82570; 83970; 84156

== ENCOUNTER → 2017-10-05 | Outpatient (CLI) | payer MEDICARE, BC, OTHER ==
[2017-10-05 11:10] LABS: ALBUMIN 3.1 g/dL (3.5-5.0); ANION GAP 9 (5-19); BLOOD UREA NITROGEN 35 mg/dL (7-20); CALCIUM 9.1 mg/dL (8.4-10.2); CARBON DIOXIDE 24 mmol/L (22-30); CHLORIDE 106 mmol/L (98-107); GLUCOSE 175 mg/dL (75-110); PHOSPHORUS 5.1 mg/dL (2.5-4.5); POTASSIUM 5.6 mmol/L (3.6-5.0); SODIUM 138.8 mmol/L (137-145)
== END ==
LOC: OD 10:13
PROVIDERS: ATTEND Internal Medicine Nephrology
DX: N18.5 Chronic kidney disease, stage 5 (principal)
CPT/HCPCS: 36415; 80069

== ENCOUNTER 2017-11-22 10:22 | Observation (INO) | payer MEDICARE, BC ==
[2017-11-22 10:39] LABS: ABSOLUTE EOSINOPHILS # (AUTO) 0.3 10^3/uL (0.0-0.6); ABSOLUTE LYMPHOCYTES (AUTO) 1.7 10^3/uL (0.5-4.7); ABSOLUTE MONOCYTES (AUTO) 0.5 10^3/uL (0.1-1.4); ABSOLUTE NEUT (AUTO) 6.2 10^3/uL (1.7-8.2); BASOPHILS % (AUTO) 0.3 % (0-2); HEMATOCRIT 30.5 % (36.0-47.0); HEMOGLOBIN 10.2 g/dL (12.0-15.5); LYMPHOCYTES % (AUTO) 19.8 % (13-45); MEAN CORPUSCULAR HEMOGLOBIN 31.9 pg (27.0-33.4); MEAN CORPUSCULAR HGB CONC 33.3 g/dL (32.0-36.0); MEAN CORPUSCULAR VOLUME 96 fl (80-97); MONOCYTES % (AUTO) 5.8 % (3-13); PLATELET COUNT 204 10^3/uL (150-450); RED BLOOD COUNT 3.18 10^6/uL (3.72-5.28); RED CELL DISTRIBUTION WIDTH 16.5 % (11.5-14.0); SEGMENTED NEUTROPHILS % (AUTO) 71.1 % (42-78); TOTAL CELLS COUNTED % (AUTO) 100 %; WHITE BLOOD COUNT 8.8 10^3/uL (4.0-10.5)
[2017-11-22 10:48] LABS: INTERNATIONAL RATION (INR) 1.03
--- NOTE | 2017-11-22 10:51 | ER Document Report ---
ED General - General Chief Complaint: Altered Mental Status Stated Complaint: BLOOD PRESSURE ISSUES Time Seen by Provider: 11/22/17 10:37 Mode of Arrival: Medic Information source: Patient, Relative Notes: 72 year old female brought to the emergency department by EMS for altered mental status. Daughter states that the patient was laying in a recliner sleeping. She sent someone over to the house to check on the patient. She was unable to be aroused. EMS was called. It took approximately 30 minutes before patient was arousable. When EMS arrived patient was awake, alert, oriented x3. Patient's daughters in the room with her. She is concerned that they had a difficulty arousing the patient. Patient denies any complaints. She states that she feels fine. She denies any headache, speech changes, vision changes, chest pain, shortness of breath, abdominal pain, numbness, tingling, weakness, nausea, vomiting. Patient states that she remembers sitting down in the recliner and then she thinks she fell asleep. Patient had similar episode 2 weeks ago. Daughter took her to [place]. She was worked up and discharged home. Told to follow up with neurology. Patient has not done this yet. TRAVEL OUTSIDE OF THE [place] IN LAST 30 DAYS: No - HPI Onset: Just prior to arrival Onset/Duration: Better Quality of pain: No pain Severity: None Pain Level: Denies Associated symptoms: None Exacerbated by: Denies Relieved by: Denies Similar symptoms previously: Yes Recently seen / treated by doctor: Yes - Related Data Allergies/Adverse Reactions: codeine [Codeine] Allergy (Unknown, Verified 11/22/17 10:56) itching Cough medicine with Codeine Allergy (Intermediate, Uncoded 11/22/17 10:56) Hyperactivity IV contrast dye Allergy (Unknown, Uncoded 11/22/17 10:56) Kidney failure Past Medical History - Social History Smoking Status: Former Smoker Family History: Reviewed & Not Pertinent Patient has suicidal ideation: No Patient has homicidal ideation: No - Past Medical History Cardiac Medical History: Reports: Hx Congestive Heart Failure, Hx Coronary Artery Disease - stent placed, Hx Heart Attack, Hx Hypertension Denies: Hx Heart Murmur Pulmonary Medical History: Reports: Hx Asthma, Hx Pneumonia Denies: Hx Bronchitis, Hx COPD, Hx Sleep Apnea, Hx Tuberculosis Neurological Medical History: Reports: Hx Cerebrovascular Accident. Denies: Hx Seizures Endocrine Medical History: Reports: Hx Diabetes Mellitus Type 1, Hx Diabetes Mellitus Type 2. Denies: Hx Graves' Disease, Hx Hyperthyroidism, Hx Hypothyroidism Renal/ Medical History: Denies: Hx End Stage Renal Disease, Hx Peritoneal Dialysis Malignancy Medical History: Reports: Hx Breast Cancer - L GI Medical History: Reports: Hx Gastroesophageal Reflux Disease. Denies: Hx Liver Failure Musculoskeletal Medical History: Reports Hx Arthritis Psychiatric Medical History: Denies: Hx Depression Past Surgical History: Reports: Hx Cardiac Catheterization - 1X stent, Hx Cardiac Surgery - pacemaker/defibulator, Hx Section, Hx Cholecystectomy , Hx Mastectomy - L 08/23/11, Hx Tubal Ligation. Denies: Hx Hysterectomy, Hx Pacemaker - Immunizations Hx Diphtheria, Pertussis, Tetanus Vaccination: Yes Hx Pneumococcal Vaccination: 11/12/10 Review of Systems - Review of Systems Constitutional: No symptoms reported EENT: No symptoms reported Cardiovascular: No symptoms reported Respiratory: No symptoms reported Gastrointestinal: No symptoms reported Genitourinary: No symptoms reported Female Genitourinary: No symptoms reported Musculoskeletal: No symptoms reported Skin: No symptoms reported Hematologic/Lymphatic: No symptoms reported Neurological/Psychological: No symptoms reported -: Yes All other systems reviewed and negative Physical Exam - Vital signs Vitals: Temp Pulse Resp BP Pulse Ox 98.5 F 80 16 109/65 100 11/22/17 10:27 11/22/17 10:27 11/22/17 10:27 11/22/17 10:27 11/22/17 10:27 - Notes Notes: PHYSICAL EXAMINATION: GENERAL: Well-appearing, well-nourished and in no acute distress. HEAD: Atraumatic, normocephalic. EYES: Pupils equal round and reactive to light, extraocular movements intact, conjunctiva are normal. ENT: Nares patent, oropharynx clear without exudates. Moist mucous membranes. NECK: Normal range of motion, supple without lymphadenopathy LUNGS: Breath sounds clear to auscultation bilaterally and equal. No wheezes rales or rhonchi. HEART: Regular rate and rhythm without murmurs ABDOMEN: Soft, nontender, nondistended abdomen. No guarding, no rebound. No masses appreciated. Female : deferred Musculoskeletal: Normal range of motion, no pitting or edema. No cyanosis. NEUROLOGICAL: Cranial nerves grossly intact. Normal speech, normal gait. Normal sensory, motor exams PSYCH: Normal mood, normal affect. SKIN: Warm, Dry, normal turgor, no rashes or lesions noted. Course - Re-evaluation Re-evalutation: 11/22/17 10:58 EKG: Ventricular rate 82, WA interval 256, castration 150, QTc 482, sinus rhythm , first-degree AV block, right bundle branch block similar to EKG done on . 11/22/17 12:58 Labs and imaging obtained. Discussed UTI and creatinine with the patient. Patient states that she has a history of renal failure. She follows up with a mushroom picker. She does not go to dialysis. Her creatinine is just being monitored. She follows up with a mushroom picker every 3 months. Patient states that she was just diagnosed with urinary tract infection over a week ago and has been on Levaquin. She states that she just finished the antibiotic 2 days ago. I discussed admission with the patient for her unresponsive episode as well as her urinary tract infection that failed outpatient treatment. Patient is agreeable with admission. I spoke with Dr. Peace. He will admit the patient. - Vital Signs Vital signs: Temp Pulse Resp BP Pulse Ox 98.2 F 82 16 115/54 L 98 11/22/17 14:57 11/22/17 14:57 11/22/17 14:57 11/22/17 14:57 11/22/17 14:57 - Laboratory Result Diagrams: 11/22/17 09:53 11/22/17 09:53 Laboratory results interpreted by me: 11/22/17 11/22/17 11/22/17 09:53 09:53 10:44 RBC 3.18 L Hgb 10.2 L Hct 30.5 L RDW 16.5 H Sodium 133.2 L Potassium 5.4 H BUN 43 H Creatinine 3.84 H Est GFR ( Amer) 14 L Est GFR (Non-Af Amer) 12 L Glucose 119 H POC Glucose 121 H Total Protein 5.8 L Albumin 3.2 L Urine Protein Urine Glucose (UA) Urine Blood Ur Leukocyte Esterase 11/22/17 11:40 RBC Hgb Hct RDW Sodium Potassium BUN Creatinine Est GFR ( Amer) Est GFR (Non-Af Amer) Glucose POC Glucose Total Protein Albumin Urine Protein >=500 H Urine Glucose (UA) 150 H Urine Blood MODERATE H Ur Leukocyte Esterase LARGE H Discharge - Discharge Clinical Impression: Altered mental status Qualifiers: Altered mental status type: somnolence Qualified Code(s): R40.0 - Somnolence Urinary tract infection Qualifiers: Urinary tract infection type: acute cystitis Hematuria presence: with hematuria Qualified Code(s): N30.01 - Acute cystitis with hematuria Renal failure Qualifiers: Renal failure chronicity: chronic Condition: Good Disposition: ADMITTED OBSERVATION Admitting Provider: Hospitalist Unit Admitted: Telemetry
[2017-11-22 11:04] LABS: ALANINE AMINOTRANSFERASE 21 U/L (9-52); ALBUMIN 3.2 g/dL (3.5-5.0); ALKALINE PHOSPHATASE 82 U/L (38-126); ANION GAP 11 (5-19); ASPARTATE AMINO TRANSFERASE 17 U/L (14-36); BILIRUBIN,DIRECT 0.2 mg/dL (0.0-0.4); BILIRUBIN,TOTAL 0.4 mg/dL (0.2-1.3); BLOOD UREA NITROGEN 43 mg/dL (7-20); CALCIUM 8.8 mg/dL (8.4-10.2); CARBON DIOXIDE 22 mmol/L (22-30); CHLORIDE 100 mmol/L (98-107); GLUCOSE 119 mg/dL (75-110); POTASSIUM 5.4 mmol/L (3.6-5.0); SODIUM 133.2 mmol/L (137-145); TOTAL PROTEIN 5.8 g/dL (6.3-8.2)
[2017-11-22 11:58] LABS: APPEARANCE,URINE TURBID; BILIRUBIN,URINE NEGATIVE (NEGATIVE); GLUCOSE, URINE 150 mg/dL (NEGATIVE); KETONES,URINE NEGATIVE (NEGATIVE); LEUKOCYTE ESTERASE,URINE LARGE (NEGATIVE); NITRITE,URINE NEGATIVE (NEGATIVE); PROTEIN,URINE >=500 mg/dL (NEGATIVE); URINE SPECIFIC GRAVITY 1.011; UROBILINOGEN,URINE NEGATIVE mg/dL (<2.0)
[2017-11-22 11:59] LABS: COLOR,URINE YELLOW
--- NOTE | 2017-11-22 12:01 | RADIOLOGY REPORT (SQ) ---
EXAM DESCRIPTION: CHEST SINGLE VIEW COMPLETED DATE/TIME: 11/22/2017 11:12 am REASON FOR STUDY: be 19 sepsis protocol COMPARISON: 07/30/2017 EXAM PARAMETERS: NUMBER OF VIEWS: One view. TECHNIQUE: Single frontal radiographic view of the chest acquired. RADIATION DOSE: NA LIMITATIONS: None. FINDINGS: LUNGS AND PLEURA: No opacities, masses or pneumothorax. No pleural effusion. MEDIASTINUM AND HILAR STRUCTURES: No masses. Contour normal. HEART AND VASCULAR STRUCTURES: Cardiomegaly. No pulmonary edema. BONES: No acute findings. HARDWARE: Pacemaker/defibrillator. OTHER: No other significant finding. IMPRESSION: Cardiomegaly without pulmonary edema. TECHNICAL DOCUMENTATION: JOB ID: [id number] [employer]- All Rights Reserved Reading location - IP/workstation name: [email or web address]
--- NOTE | 2017-11-22 12:32 | RADIOLOGY REPORT (SQ) ---
EXAM DESCRIPTION: CT HEAD WITHOUT COMPLETED DATE/TIME: 11/22/2017 12:15 pm REASON FOR STUDY: ams COMPARISON: 07/30/2017 TECHNIQUE: Axial images acquired through the brain without intravenous contrast. Images reviewed wi th bone, brain and subdural windows. Additional sagittal and coronal reconstructions were generated. Images stored on PACS. All CT scanners at this facility use dose modulation, iterative reconstruction, and/or weight based d osing when appropriate to reduce radiation dose to as low as reasonably achievable (ALARA). [facility]: Dose Right [facility]: CareDose [facility]: Dose Right [facility]: Teradose 4D [facility]: [employer] RADIATION DOSE: CT Rad equipment meets quality standard of care and radiation dose reduction techniq ues were employed. CTDIvol: 53.2 mGy. DLP: 1017 mGy-cm.mGy. LIMITATIONS: None. FINDINGS: VENTRICLES: Prominent. CEREBRUM: No masses. No hemorrhage. No midline shift. Areas of low density in the white matter mos t likely due to chronic micro-vascular ischemic change. No evidence for acute infarction. CEREBELLUM: No masses. No hemorrhage. No alteration of density. No evidence for acute infarction. EXTRAAXIAL SPACES: Age-related involutional change. No fluid collections. No masses. ORBITS AND GLOBE: No intra- or extraconal masses. Normal contour of globe without masses. CALVARIUM: No fracture. PARANASAL SINUSES: Chronic opacification left maxillary sinus. SOFT TISSUES: No mass or hematoma. OTHER: No other significant finding. IMPRESSION: CHRONIC CHANGES OF ATROPHY AND MICROVASCULAR ISCHEMIA. NO ACUTE PROCESS. EVIDENCE OF ACUTE STROKE: NO. TECHNICAL DOCUMENTATION: JOB ID: [id number] Quality ID # [id number]: Final reports with documentation of one or more dose reduction techniques (e.g., Au tomated exposure control, adjustment of the mA and/or kV according to patient size, use of iterative reconstruction technique) 2010 [employer]- All Rights Reserved Reading location - IP/workstation name: [email or web address]
[2017-11-22] MEDS ORDERED: ALBUTEROL SULFATE HFA (90 MCG/PUFF) 200 PUFF/8.5 GM MDI IH PRN (16:03)
[2017-11-22] MEDS ORDERED: ALBUTEROL SULFATE 0.083% NEB 2.5 MG/3 ML AMPUL NEB PRN (16:03)
[2017-11-22] MEDS ORDERED: HYDROCODONE/ACETAMINOPHEN 5-325 MG TABLET PO PRN (16:03)
[2017-11-22] MEDS ORDERED: DEXTROSE 40% GEL 15 GM TUBE PO PRN ×2 (16:15)
[2017-11-22] MEDS ORDERED: DEXTROSE 50%-WATER 25 GM/50 ML DISP.SYRIN IV PRN ×2 (16:15)
[2017-11-22] MEDS ORDERED: GLUCAGON,HUMAN RECOMB 1 MG INJ IM PRN (16:15)
[2017-11-22] MEDS ORDERED: INSULIN REG, HUMAN 100 UNIT/ML 3 ML VIAL (PYX) SUBCUT PRN (16:15)
--- NOTE | 2017-11-22 16:35 | RADIOLOGY REPORT (SQ) ---
EXAM DESCRIPTION: CAROTID DOPPLER COMPLETED DATE/TIME: 11/22/2017 4:25 pm REASON FOR STUDY: syncope, hx of carotid stenosis COMPARISON: 04/20/2016 TECHNIQUE: Grayscale ultrasound, Doppler velocity and spectra, and color Doppler images acquired of the extra-cranial carotid and vertebral arteries. Images stored on PACS. LIMITATIONS: None. FINDINGS: RIGHT CAROTID CCA Velocities: 92 centimeters/second ICA Velocities Peak systolic 180 cm/s. End diastolic 59 cm/s. Proximal ICA/CCA peak systolic ratio to. Heterogeneous in the calcified plaque. LEFT CAROTID CCA Velocities: 83 centimeters/second ICA Velocities Peak systolic 76 cm/s. End diastolic 20 side cm/s. Proximal ICA/CCA peak systolic ratio 0.9. A small amount of calcified plaque is present. VERTEBRAL ARTERIES: Antegrade flow. Normal waveforms. SUBCLAVIAN ARTERIES: No finding. OTHER: No other significant finding. IMPRESSION: Atherosclerotic changes with 50 to 69% stenosis of the right internal carotid and less t lopes 50% stenosis on the left. COMMENT: Quality ID #[id number]: Velocity criteria are extrapolated from the diameter data as defined by t tio Society of Radiologists in Ultrasound Consensus Conference. Radiology 2003: 229; 340-346. TECHNICAL DOCUMENTATION: JOB ID: [id number] [employer]- All Rights Reserved Reading location - IP/workstation name: [email or web address]
--- NOTE | 2017-11-22 16:35 | PDOC H&P ---
History of Present Illness Admission Date/PCP: 11/22/17 13:37 CAS DENG MD Patient complains of: lethargy, questionable syncope History of Present Illness: JENNIFER GRUBBS is a 72 year old female with a past medical history of congestive heart failure with last known EF of 50%, coronary artery disease with prior stenting, history of AICD placement, hypertension, CKD V-not yet on dialysis, asthma, history of hemorrhagic stroke (right temporal bleed) in 1985 and history of TIA last year with no residual neurologic deficits, hypothyroidism, anxiety and depression, remote history of paroxysmal AFib (not on anticoagulation due to history of hemorrhagic stroke), obstructive sleep apnea noncompliant to CPAP, history of left arm DVT in 2006, history of left breast cancer with prior mastectomy and currently on anastrozole and previous intracranial AV malformation who was brought in due to lethargy at home. Upon encounter, patient is fully awake and able x4. Family is at the bedside. Patient apparently had previous history of syncope. She had one episode last year. On 11/10/17, patient had a syncopal episode at home and was brought to the [facility]. Family says that her blood pressures were low at that time and she did have orthostasis. It was suspected to be medication induced. Patient was recently started on Entresto 5 months ago. She says that her senior human resources representative has recently recommended cutting down the dose from 49/51 mg to 24/ 26 mg. Daughter says that she chest started cutting down on the dose 2 days ago. Patient also takes Coreg 25 mg twice daily, [place] and lorazepam as needed. Patient was admitted last year for syncope and apparently syncopal workup was negative aside from a carotid Doppler which showed 50-60% right ICA stenosis and less than 50% left ICA stenosis in April 2016. Per family, patient was apparently well. Daughter says that they have consulted Jeffry in her bedroom. Patient was apparently sitting on her chair and was sleeping early this morning when the daughter noticed at that she was not breathing deep. They went to check on her bedroom and patient was unarousable for 30 minutes. They called EMS and upon arrival, patient's blood pressure was noted to be 70/40. Patient was given 300 cc of IV fluids in route. Upon arrival to the ER, patient was already fully awake and was AO x4. She denies any headache, lightheadedness, dizziness or dimming of vision prior to the episode. She denies any chest pain, palpitations or shortness of breath. She says she feels perfectly well. She denies any weakness of the arms or legs, tingling sensation or numbness. No dysarthria, aphasia or speech problems. Orthostatic vital signs in the ER are as follows: supine 100/53, sitting 99/60, standing 87/50. Past Medical History Cardiac Medical History: Reports: Congestive Heart Failure, Coronary Artery Disease - stent placed, Myocardial Infarction, Hypertension Denies: Heart Murmur Pulmonary Medical History: Reports: Asthma, Pneumonia Denies: Bronchitis, Chronic Obstructive Pulmonary Disease (COPD), Sleep Apnea , Tuberculosis Neurological Medical History: Denies: Seizures Endocrine Medical History: Reports: Diabetes Mellitus Type 1, Diabetes Mellitus Type 2 Denies: Hyperthyroidism, Hypothyroidism Renal/ Medical History: Denies: End Stage Renal Disease Malignancy Medical History: Reports: Breast Cancer - L GI Medical History: Reports: Gastroesophageal Reflux Disease Musculoskeltal Medical History: Reports: Arthritis Psychiatric Medical History: Denies: Depression Hematology: Reports: Anemia Past Surgical History Past Surgical History: Reports: Cardiac Catheterization - 1X stent, Section, Cholecystectomy, Mastectomy - L 08/23/11, Tubal Ligation Denies: Hysterectomy, Pacemaker Social History Smoking Status: Former Smoker Frequency of Alcohol Use: None Hx Recreational Drug Use: No Hx Prescription Drug Abuse: No - Advance Directive Resuscitation Status: Full Code Family History Family History: Reviewed & Not Pertinent Parental Family History Reviewed: Yes - no premature CAD Children Family History Reviewed: No Sibling(s) Family History Reviewed.: No Medication/Allergy Home Medications: Albuterol Sulfate [Albuterol Sulfate 2.5mg/3 mL] 2.5 ml NEB RTQ4HP PRN 11/22/17 Albuterol Sulfate [Proair HFA Inhalation Aerosol 8.5 gm MDI] 2 puff IH Q4HP PRN 11/22/17 Allopurinol [Zyloprim 100 mg Tablet] 200 mg PO QAM 11/22/17 Anastrozole [Arimidex 1 mg Tablet] 1 mg PO QAM 11/22/17 Atorvastatin Calcium [Lipitor 80 mg Tablet] 80 mg PO QHS 11/22/17 Carvedilol [Coreg 25 mg Tablet] 50 mg PO Q12 11/22/17 Citalopram Hydrobromide [Celexa 20 mg Tablet] 20 mg PO QPM 11/22/17 Clopidogrel Bisulfate [Plavix 75 mg Tablet] 75 mg PO QAM 11/22/17 Docusate Sodium [Colace 100 mg Capsule] 100 mg PO QPM 11/22/17 Ergocalciferol (Vitamin D2) [Vitamin D2] 50,000 unit PO .15THOFEVERYMONTH Gabapentin [Neurontin 400 mg Capsule] 800 mg PO QPM 11/22/17 Hydrocodone/Acetaminophen [[place] 5-325 Tablet] 1 tab PO Q8HP PRN 11/22/17 Lorazepam [Ativan 1 mg Tablet] 1 mg PO TIDP PRN 11/22/17 Magnesium Oxide [Mag-Ox 400 mg Tablet] 400 mg PO QAM 11/22/17 Pantoprazole Sodium [Protonix] 40 mg PO QAM 11/22/17 Sacubitril/Valsartan [Entresto 24 mg/26 mg Tablet] 1 tab PO Q12 11/22/17 Sertraline HCl [Zoloft] 25 mg PO QAM 11/22/17 Sitagliptin Phosphate [Januvia 25 mg Tablet] 25 mg PO QAM 11/22/17 Allergies/Adverse Reactions: codeine [Codeine] Allergy (Unknown, Verified 11/22/17 10:56) itching Cough medicine with Codeine Allergy (Intermediate, Uncoded 11/22/17 10:56) Hyperactivity IV contrast dye Allergy (Unknown, Uncoded 11/22/17 10:56) Kidney failure Review of Systems All systems: reviewed and no additional remarkable complaints except as stated - as mentioned in HPI Physical Exam Vital Signs: Temp Pulse Resp BP Pulse Ox 98.2 F 82 16 115/54 L 98 11/22/17 14:57 11/22/17 14:57 11/22/17 14:57 11/22/17 14:57 11/22/17 14:57 Intake & Output 11/21/17 11/22/17 11/23/17 06:59 06:59 06:59 Weight 191 lb 12.835 oz General appearance: PRESENT: no acute distress, well-developed, well-nourished Head exam: PRESENT: atraumatic, normocephalic Eye exam: PRESENT: conjunctiva pink, EOMI, PERRLA. ABSENT: scleral icterus Ear exam: PRESENT: normal external ear exam Mouth exam: PRESENT: moist, tongue midline Neck exam: ABSENT: carotid bruit, JVD, lymphadenopathy, thyromegaly Respiratory exam: PRESENT: clear to auscultation gloria. ABSENT: rales, rhonchi, wheezes Cardiovascular exam: PRESENT: RRR. ABSENT: diastolic murmur, rubs, systolic murmur Pulses: PRESENT: normal dorsalis pedis pul GI/Abdominal exam: PRESENT: normal bowel sounds, soft. ABSENT: distended, guarding, mass, organolmegaly, rebound, tenderness Rectal exam: PRESENT: deferred Extremities exam: PRESENT: full ROM, pedal edema, +1 edema. ABSENT: calf tenderness, clubbing Neurological exam: PRESENT: alert, awake, oriented to person, oriented to place , oriented to time, oriented to situation, CN II-XII grossly intact. ABSENT: motor sensory deficit Results Impressions: Chest X-Ray 11/22/17 10:26 IMPRESSION: Cardiomegaly without pulmonary edema. Head CT 11/22/17 11:46 IMPRESSION: CHRONIC CHANGES OF ATROPHY AND MICROVASCULAR ISCHEMIA. NO ACUTE PROCESS. EVIDENCE OF ACUTE STROKE: NO. Assessment & Plan - Diagnosis (1) Hypotension Is this a current diagnosis for this admission?: Yes Plan: Patient was noted to be hypotensive at 70/40 upon arrival by EMS. This did improve with some fluids in route. Patient was ready fully awake and coherent upon arrival to the ER. Her hypotension likely medical occasion induced. Patient is on Entresto which is known to cause significant hypotension. We will hold off Entresto for now. Patient also takes Coreg 50 mg every 12. She takes lorazepam and [place] as needed at home but daughter says she only takes it occasionally. Orthostatic vital signs in the ER are as follows: supine 100/53, sitting 99/60, standing 87/5 Recent blood pressure upon encounter is 90/58. Hold off on Coreg for now due to low blood pressures. Patient does not appear to have acute infection or sepsis causing low blood pressures. Urinalysis does show signs of possible UTI however patient denies any lower urinary tract symptoms including dysuria, hematuria, frequency or flank pains or fever. (2) Syncope Qualifiers: Syncope type: unspecified Qualified Code(s): R55 - Syncope and collapse Is this a current diagnosis for this admission?: Yes Plan: It is questionable if patient had a true syncope as she was sleeping on a chair when she was noted to be an arousable. Does have history of noncritical carotid stenosis. Will recheck carotid Dopplers. Will place patient on telemetry and monitor for abnormal cardiac rhythm. She has low blood pressures which likely caused her initial somnolence. Neurologic exam is completely normal. CT of the head is negative. EKG shows RBBB pattern. Anteroseptal changes are not new after comparing to old EKGs on record. (3) Coronary artery disease Qualifiers: Coronary Disease-Associated Artery/Lesion type: nondalton artery Associated angina: without angina Is this a current diagnosis for this admission?: Yes Plan: Stable. Continue clopidogrel and atorvastatin. (4) [id number] kidney injury Qualifiers: Chronic kidney disease stage: stage 5, not on chronic dialysis Is this a current diagnosis for this admission?: Yes Plan: Creatinine is elevated at 3.8. She has a baseline creatinine of 3-3.1. She follows up closely with a live source operator in [place]. (5) Chronic systolic (congestive) heart failure Is this a current diagnosis for this admission?: Yes Plan: Not in exacerbation. Last EF on record is 50% in 2017. Will hold off on Coreg and Entresto for now due to hypotension. (6) History of atrial fibrillation Is this a current diagnosis for this admission?: Yes Plan: Family says she has not been placed on chronic anticoagulation due to her history of hemorrhagic stroke. (7) Diabetes mellitus type II, controlled Is this a current diagnosis for this admission?: Yes Plan: Will monitor sugars. Resume Januvia. - Time Time Spent: 30 to 50 Minutes
[2017-11-22] MEDS: DOCUSATE SODIUM 100 MG CAPSULE PO SCH (17:21)
[2017-11-22] MEDS: CITALOPRAM HYDROBROMIDE 20 MG TABLET PO SCH (17:22)
[2017-11-22] MEDS ORDERED: NORMAL SALINE 1000 ML 1,000 ML IV PRN (18:02)
[2017-11-22] MEDS: ATORVASTATIN CALCIUM 80 MG TABLET PO SCH (21:21)
[2017-11-22] MEDS: CEFTRIAXONE SODIUM 1,000 MG in DEXTROSE 5%-WATER 50 ML IV SCH (21:21)
[2017-11-22] MEDS: HEPARIN SOD (PORCINE) 5,000 UNIT/ML 1 ML SYRINGE SUBCUT SCH (21:21)
--- NOTE | 2017-11-22 22:34 | EKG REPORT ---
SEVERITY:- ABNORMAL ECG - SINUS RHYTHM RIGHT BUNDLE BRANCH BLOCK ANTERIOR INFARCT, AGE INDETERMINATE : Confirmed by: Ilsa Matthews MD 22-Nov-2017 22:33:16
[2017-11-23 05:32] LABS: ANION GAP 14 (5-19); BLOOD UREA NITROGEN 49 mg/dL (7-20); CALCIUM 9.3 mg/dL (8.4-10.2); CARBON DIOXIDE 20 mmol/L (22-30); CHLORIDE 100 mmol/L (98-107); GLUCOSE 110 mg/dL (75-110); POTASSIUM 5.3 mmol/L (3.6-5.0); SODIUM 133.7 mmol/L (137-145)
[2017-11-23] MEDS: LANSOPRAZOLE 30 MG TAB.RAP.DR PO SCH (05:56)
[2017-11-23] MEDS ORDERED: (PENDING PHARMACY ID) (Sertraline Hcl [Zoloft] 25 MG) PO SCH (08:00)
[2017-11-23] MEDS: MAGNESIUM OXIDE 400 MG TABLET PO SCH (08:12)
[2017-11-23] MEDS: ALLOPURINOL 100 MG TABLET PO SCH (08:12)
[2017-11-23] MEDS: SITAGLIPTIN PHOSPHATE 25 MG TABLET PO SCH (08:12)
[2017-11-23] MEDS: ANASTROZOLE 1 MG TABLET PO SCH (08:12)
[2017-11-23] MEDS: CLOPIDOGREL BISULFATE 75 MG TABLET PO SCH (08:13)
[2017-11-23] MEDS: SERTRALINE HCL 50 MG TABLET PO SCH (08:13)
[2017-11-23] MEDS: HEPARIN SOD (PORCINE) 5,000 UNIT/ML 1 ML SYRINGE SUBCUT SCH ×2 (09:46→21:54)
[2017-11-23] MEDS ORDERED: SODIUM POLYSTYRENE SULFONATE 15 GM/60 ML PO ONE (10:30)
--- NOTE | 2017-11-23 11:23 | PDOC CONSULTATION ---
Consultation Consult Date: 11/23/17 Attending physician:: AMANDA PEACE Consult reason:: unable to obtain catheter History of Present Illness Admission Date/PCP: 11/22/17 13:37 CAS DENG MD Patient complains of: called for placement of urinary catheter due to urinary retention History of Present Illness: JENNIFER GRUBBS is a 72 year old female presented to ER yesterday for syncopal episode which is thought to be due to her BP meds. She was noted to be hypotensive and the Hospitalist is treating her for this. Today she was being monitored for possible decreased urine output with elevated creatinine. pt reports that she has had this prolapse has been present since her daughter was born over 40 years ago. She denies VB and reports that prolapse usually does not bother her. Past Medical History LMP: menopausal Gynecological Infection: No Baby 1 Delivery: Spontaneous Vaginal Delivery Baby 2 Delivery: : Low Cervical, Transverse Cardiac Medical History: Reports: Congestive Heart Failure, Coronary Artery Disease - stent placed, Myocardial Infarction, Hypertension Denies: Heart Murmur Pulmonary Medical History: Reports: Asthma, Pneumonia Denies: Bronchitis, Chronic Obstructive Pulmonary Disease (COPD), Sleep Apnea , Tuberculosis Neurological Medical History: Denies: Seizures Endocrine Medical History: Reports: Diabetes Mellitus Type 1, Diabetes Mellitus Type 2 Denies: Hyperthyroidism, Hypothyroidism Renal/ Medical History: Denies: End Stage Renal Disease Malignancy Medical History: Reports: Breast Cancer - L GI Medical History: Reports: Gastroesophageal Reflux Disease Musculoskeltal Medical History: Reports: Arthritis Psychiatric Medical History: Denies: Depression Social History Information Source: Patient Lives with: Family Smoking Status: Former Smoker Frequency of Alcohol Use: None Hx Recreational Drug Use: No Drugs: None Hx Prescription Drug Abuse: No - Advance Directive Resuscitation Status: Full Code Family History Family History: None, Reviewed & Not Pertinent Parental Family History Reviewed: No Children Family History Reviewed: NA Sibling(s) Family History Reviewed.: NA Medication/Allergy Home Medications: Albuterol Sulfate [Albuterol Sulfate 2.5mg/3 mL] 2.5 ml NEB RTQ4HP PRN 11/22/17 Albuterol Sulfate [Proair HFA Inhalation Aerosol 8.5 gm MDI] 2 puff IH Q4HP PRN 11/22/17 Allopurinol [Zyloprim 100 mg Tablet] 200 mg PO QAM 11/22/17 Anastrozole [Arimidex 1 mg Tablet] 1 mg PO QAM 11/22/17 Atorvastatin Calcium [Lipitor 80 mg Tablet] 80 mg PO QHS 11/22/17 Carvedilol [Coreg 25 mg Tablet] 50 mg PO Q12 11/22/17 Citalopram Hydrobromide [Celexa 20 mg Tablet] 20 mg PO QPM 11/22/17 Clopidogrel Bisulfate [Plavix 75 mg Tablet] 75 mg PO QAM 11/22/17 Docusate Sodium [Colace 100 mg Capsule] 100 mg PO QPM 11/22/17 Ergocalciferol (Vitamin D2) [Vitamin D2] 50,000 unit PO .15THOFEVERYMONTH Gabapentin [Neurontin 400 mg Capsule] 800 mg PO QPM 11/22/17 Hydrocodone/Acetaminophen [[place] 5-325 Tablet] 1 tab PO Q8HP PRN 11/22/17 Lorazepam [Ativan 1 mg Tablet] 1 mg PO TIDP PRN 11/22/17 Magnesium Oxide [Mag-Ox 400 mg Tablet] 400 mg PO QAM 11/22/17 Pantoprazole Sodium [Protonix] 40 mg PO QAM 11/22/17 Sacubitril/Valsartan [Entresto 24 mg/26 mg Tablet] 1 tab PO Q12 11/22/17 Sertraline HCl [Zoloft] 25 mg PO QAM 11/22/17 Sitagliptin Phosphate [Januvia 25 mg Tablet] 25 mg PO QAM 11/22/17 Allergies/Adverse Reactions: codeine [Codeine] Allergy (Unknown, Verified 11/22/17 10:56) itching Cough medicine with Codeine Allergy (Intermediate, Uncoded 11/22/17 10:56) Hyperactivity IV contrast dye Allergy (Unknown, Uncoded 11/22/17 10:56) Kidney failure Review of Systems Constitutional: ABSENT: chills, fever(s), headache(s), weight gain, weight loss Genitourinary: ABSENT: dysuria, hematuria Neurological: PRESENT: as per HPI Endocrine: ABSENT: cold intolerance, heat intolerance, polydipsia, polyuria Hematologic/Lymphatic: ABSENT: easy bleeding, easy bruising Physical Exam - Physical Exam Vital Signs: Temp Pulse Resp BP Pulse Ox 98.6 F 81 18 103/54 L 98 11/23/17 08:00 10/12/18 08:00 11/23/17 08:00 11/23/17 08:00 11/23/17 08:00 Intake & Output 11/22/17 11/23/17 11/24/17 06:59 06:59 06:59 Intake Total 200 Output Total 50 Balance 150 Weight 87 kg - Gynecological Exam Labia: other - postmenopausal Urethra: other - once cystocele displaced urethra easily identified. Anderson to gravity placed with sterile technique Introitus: other - no lesions. mild bulge noted which on exam is c/w Grade III cystocele Result Laboratory Results: 11/23/17 04:08 11/23/17 04:08 Sodium 133.7 L Potassium 5.3 H Chloride 100 Carbon Dioxide 20 L Anion Gap 14 BUN 49 H Creatinine 4.55 H Est GFR ( Amer) 12 L Est GFR (Non-Af Amer) 10 L Glucose 110 Calcium 9.3 Impressions: Carotid Doppler Study 11/22/17 00:00 IMPRESSION: Atherosclerotic changes with 50 to 69% stenosis of the right internal carotid and less than 50% stenosis on the left. Chest X-Ray 11/22/17 10:26 IMPRESSION: Cardiomegaly without pulmonary edema. Head CT 11/22/17 11:46 IMPRESSION: CHRONIC CHANGES OF ATROPHY AND MICROVASCULAR ISCHEMIA. NO ACUTE PROCESS. EVIDENCE OF ACUTE STROKE: NO. Status: Imported from PACS Assessment & Plan - Diagnosis (1) Cystocele with prolapse Is this a current diagnosis for this admission?: Yes Plan: Grade III now but may decrease somewhat once the bladder is drained. Anderson to gravity placed and instant 350ml out. Nursing reports bladder scan noted 505ml in bladder. Anderson clamped and then RN will unclamp to allow remainder of bladder to drain. Reviewed findings with Dr. Peace who is planning on discharge patient tomorrow. Urine culture still pending but WBC normal. Patient may have some bladder dysfunction related to diabetes. Would recommend anderson to gravity stay in at least 24 hours to allow bladder to rest from distension. Unable to tell if distension is prolonged ongoing thing for patient or if this is a new finding. Reviewed options for patient for treatment: surgical (poor candidate for surgery ) or do nothing, or pessary. Pt does not seem that she will desire a pessary. Will plan to f/u in the office to review with patient again. If patient passes a bladder trial then may discharge to home without catheter. will continue to follow while admitted - Time Time Spent: 30 to 50 Minutes Medications reviewed and adjusted accordingly: Yes Anticipated discharge: Home Within: within 24 hours, Other - per primary team - Inpatient Certification Based on my medical assessment, after consideration of the patient's comorbidities, presenting symptoms, or acuity I expect that the services needed warrant INPATIENT care.: Yes I certify that my determination is in accordance with my understanding of Medicare's requirements for reasonable and necessary INPATIENT services [42 CFR 412.3e].: Yes Medical Necessity: Significant Comorbidiites Make Outpatient Treatment Too Risky , Need For IV Fluids
[2017-11-23 12:14] LABS: URINE CREATININE 71.7 mg/dL (15-278)
--- NOTE | 2017-11-23 13:12 | RADIOLOGY REPORT (SQ) ---
EXAM DESCRIPTION: U/S RETROPERITON (RENAL/AORTA) COMPLETED DATE/TIME: 11/23/2017 12:32 pm REASON FOR STUDY: TORI on CKD E11.69 TYPE 2 DIABETES MELLITUS WITH OTHER SPECIFIED COMPLIC I50.23 A CUTE ON CHRONIC SYSTOLIC (CONGESTIVE) HEART FAILURE COMPARISON: MRI abdomen examination dated 06/23/2015. CT abdomen and pelvis examination dated 016 TECHNIQUE: Dynamic and static grayscale images acquired of the kidneys and bladder and recorded on P ACS. Additional selected color Doppler and spectral images recorded. LIMITATIONS: None. FINDINGS: RIGHT KIDNEY: The right kidney measures 8.7 x 5.8 x 6.3 cm. Mild diffuse increased echog enicity of the kidney, may be on the basis of underlying medical renal disease. A hypoechoic 3.4 x 3 .4 x 3.1 cm fairly well-circumscribed exophytic appearing lesion off of the mid kidney. A much small er hypoechoic lesion is also noted in the same vicinity. These findings may correlate with the lesio ns identified on the CT and MRI examinations dated 06/08/2015 and 06/23/2015. No hydronephrosis. LEFT KIDNEY: The left kidney measures 11.5 x 5.6 x 6.2 cm, normal size. Mild diffuse increased echo genicity of the kidney may be on the basis of underlying medical renal disease. A 4.4 x 4.0 x 5.3 cm cyst in the upper pole. No hydronephrosis. No calcifications. BLADDER: The patient has a Decker catheter within the urinary bladder. OTHER FINDINGS: No other significant finding. IMPRESSION: 1. Mild diffuse increased echogenicity of the kidneys, may be on the basis of underlyin g medical renal disease. 2. There are two fairly well-circumscribed right renal hypoechoic lesions. These findings may corre late with the lesions identified on the CT and MRI examinations dated 06/08/2015 and 06/23/2015. 3. Left renal cyst. 4. No evidence of hydronephrosis. 5. The right kidney is smaller in size than the left. TECHNICAL DOCUMENTATION: JOB ID: [id number] [employer]- All Rights Reserved Reading location - IP/workstation name: [email or web address]
[2017-11-23] MEDS: LIOTHYRONINE 5 MCG PO SCH (14:46)
[2017-11-23] MEDS: DOCUSATE SODIUM 100 MG CAPSULE PO SCH (17:07)
[2017-11-23] MEDS: CITALOPRAM HYDROBROMIDE 20 MG TABLET PO SCH (17:09)
--- NOTE | 2017-11-23 17:38 | PDOC PROGRESS REPORT ---
Subjective Progress Note for:: 11/23/17 Subjective:: Ms. Pat is a 72 year old female with a past medical history of congestive heart failure with last known EF of 50%, coronary artery disease with prior stenting, history of AICD placement, hypertension, CKD V-not yet on dialysis, uterine prolapse, asthma, history of hemorrhagic stroke (right temporal bleed) in 1985 and history of TIA last year with no residual neurologic deficits, hypothyroidism, anxiety and depression, remote history of paroxysmal AFib (not on anticoagulation due to history of hemorrhagic stroke), obstructive sleep apnea noncompliant to CPAP, history of left arm DVT in 2006, history of left breast cancer with prior mastectomy and currently on anastrozole and previous intracranial AV malformation who was brought in due to lethargy, questionable syncope and hypotension at home. No acute event overnight. Blood pressures have slightly improved after holding Coreg and Entresto but still running on the low normal end. No syncopal episode , chest pain, dizziness or SOB. She did develop acute urinary retention this morning and was noted to have a cystocele. Reason For Visit: SYNCOPE,HYPOTENSION Physical Exam Vital Signs: Temp Pulse Resp BP Pulse Ox 98.3 F 77 18 103/50 L 98 11/23/17 12:00 11/23/17 14:00 11/23/17 12:00 11/23/17 12:00 11/23/17 12:00 Intake & Output 11/22/17 11/23/17 11/24/17 06:59 06:59 06:59 Intake Total 200 Output Total 50 Balance 150 Weight 191 lb 12.835 oz General appearance: PRESENT: no acute distress, well-developed, well-nourished Head exam: PRESENT: atraumatic, normocephalic Eye exam: PRESENT: conjunctiva pink, EOMI, PERRLA. ABSENT: scleral icterus Ear exam: PRESENT: normal external ear exam Mouth exam: PRESENT: moist, tongue midline Neck exam: ABSENT: carotid bruit, JVD, lymphadenopathy, thyromegaly Respiratory exam: PRESENT: clear to auscultation gloria. ABSENT: rales, rhonchi, wheezes Cardiovascular exam: PRESENT: RRR. ABSENT: diastolic murmur, rubs, systolic murmur Pulses: PRESENT: normal dorsalis pedis pul GI/Abdominal exam: PRESENT: normal bowel sounds, soft. ABSENT: distended, guarding, mass, organolmegaly, rebound, tenderness Rectal exam: PRESENT: deferred Gentrourinary exam: PRESENT: other - note of cystocele Extremities exam: PRESENT: full ROM, pedal edema. ABSENT: calf tenderness, clubbing Neurological exam: PRESENT: alert, awake, oriented to person, oriented to place , oriented to time, oriented to situation, CN II-XII grossly intact. ABSENT: motor sensory deficit Results Laboratory Results: 11/23/17 04:08 11/23/17 04:08 Sodium 133.7 L Potassium 5.3 H Chloride 100 Carbon Dioxide 20 L Anion Gap 14 BUN 49 H Creatinine 4.55 H Est GFR ( Amer) 12 L Est GFR (Non-Af Amer) 10 L Glucose 110 Calcium 9.3 11/23/17 16:07 NT-Pro-B Natriuret Pep 2610 H Impressions: Carotid Doppler Study 11/22/17 00:00 IMPRESSION: Atherosclerotic changes with 50 to 69% stenosis of the right internal carotid and less than 50% stenosis on the left. Chest X-Ray 11/22/17 10:26 IMPRESSION: Cardiomegaly without pulmonary edema. Head CT 11/22/17 11:46 IMPRESSION: CHRONIC CHANGES OF ATROPHY AND MICROVASCULAR ISCHEMIA. NO ACUTE PROCESS. EVIDENCE OF ACUTE STROKE: NO. Renal Ultrasound 11/23/17 09:42 IMPRESSION: 1. Mild diffuse increased echogenicity of the kidneys, may be on the basis of underlying medical renal disease. 2. There are two fairly well-circumscribed right renal hypoechoic lesions. These findings may correlate with the lesions identified on the CT and MRI examinations dated 06/08/2015 and 06/23/2015. 3. Left renal cyst. 4. No evidence of hydronephrosis. 5. The right kidney is smaller in size than the left. Assessment & Plan - Diagnosis (1) Hypotension Is this a current diagnosis for this admission?: Yes Plan: Improving but still running on the low normal end. Patient was noted to be hypotensive at 70/40 upon arrival by EMS. This did improve with some fluids in route. Patient was ready fully awake and coherent upon arrival to the ER. Her hypotension likely is medication-induced (Entresto and Coreg). Orthostatic vital signs in the ER are as follows: supine 100/53, sitting 99/60, standing 87/5 Recent blood pressure upon encounter is 90/58. Continue hold off on Coreg and Coreg for now due to low blood pressures. Continue cautious IV fluids at 50 cc/hr due to her chronic heart failure. Patient does not appear to have acute infection or sepsis causing low blood pressures. Urinalysis does show signs of possible UTI however patient denies any lower urinary tract symptoms including dysuria, hematuria, frequency or flank pains or fever. (2) [id number] kidney injury Qualifiers: Chronic kidney disease stage: stage 5, not on chronic dialysis Is this a current diagnosis for this admission?: Yes Plan: Acute on chronic renal failure. She has CKD 5 but not yet on dialysis. Creatinine is worse today. Her acute renal failure is likely seocndary to ATN from the hypotension. She has a baseline creatinine of 3-3.1. She follows up closely with a manager report in [place]. Consulted Dr. Waters for further recommendations. (3) Syncope Qualifiers: Syncope type: unspecified Qualified Code(s): R55 - Syncope and collapse Is this a current diagnosis for this admission?: Yes Plan: It is questionable if patient had a true syncope as she was sleeping on a chair when she was noted to be unarousable. She does have history of noncritical carotid stenosis. Repeat carotid Dopplers show stable changes from last year. Tele monitoring has been unremarkable. She had low blood pressures which likely caused her initial somnolence. Neurologic exam is completely normal. CT of the head is negative. EKG shows RBBB pattern. Anteroseptal changes are not new after comparing to old EKGs on record. (4) Coronary artery disease Qualifiers: Coronary Disease-Associated Artery/Lesion type: [place] artery Associated angina: without angina Is this a current diagnosis for this admission?: Yes Plan: Stable. Continue clopidogrel and atorvastatin. (5) Chronic systolic (congestive) heart failure Is this a current diagnosis for this admission?: Yes Plan: Not in exacerbation. Last EF on record is 50% in 2017. Continue to hold off on Coreg and Entresto for now due to hypotension. (6) History of atrial fibrillation Is this a current diagnosis for this admission?: Yes Plan: Family says she has not been placed on chronic anticoagulation due to her history of hemorrhagic stroke. (7) Diabetes mellitus type II, controlled Is this a current diagnosis for this admission?: Yes Plan: Noted sugars. Continue Januvia. (8) Acute urinary retention Is this a current diagnosis for this admission?: Yes Plan: Patient developed urinary retention. Catheter placement was difficult due to cystocele. Hold Mars[place] as it may worsen retention. [employer]junct Philosophy Faculty consulted. Appreciate Ob-Adjunct Philosophy Faculty input and recommendations. (9) Cystocele with prolapse Is this a current diagnosis for this admission?: Yes Plan: Ob-Adjunct Philosophy Faculty has been consulted. Cystocele was maually reduced and treatment options have been discussed with patient. - Time Time Spent with patient: 25-34 minutes
--- NOTE | 2017-11-23 17:49 | PDOC CONSULTATION ---
Consultation Consult Date: 11/23/17 Attending physician:: AMANDA GOMEZ Consult reason:: I was asked to see the patient due to worsening kidney function. History of Present Illness Admission Date/PCP: 11/22/17 13:37 CAS DENG MD History of Present Illness: JENNIFER GRUBBS is a 72 year old female with history of ischemic cardiomyopathy with ejection fraction of 35-40%, coronary artery disease, chronic kidney disease stage IV-V being followed by Dr. Iniguez of [facility] , history of previous syncopal episodes of hypotension, atrial fibrillation, diabetes mellitus who was admitted yesterday because of syncope and hypotension. Yesterday the patient was found to be unarousable while sitting in her chair so EMS was called. She was found to have blood pressure of 70/40. In route EMS gave her IV fluid bolus of 300 cc and she was found to be awake upon arrival to the emergency room. It appears that she has had episodes like this in the past the last of which was July 2017. Recently her import/export clerk, Dr. Darby has decreased her Entresto from 49/51 mg to 24/26 mg due to hypotension. There is also an indication that patient might have a urinary tract infection from the urinalysis, urine culture is pending. According to the patient's daughter at bedside her usual blood pressure is around 120s over 80s but from previous records from [facility] it does appear that the patient has been having episodes of hypotension recently. Patient is currently on IV fluid with normal saline at 50 mL an hour. Is also receiving IV antibiotics. An initial assessment she was found to have a prolapsed bladder so control cabinet assembler, Dr. Johnson was consulted. Patient was assessed to have grade 3 cystocele with prolapse. A Decker catheter was inserted. His Decker catheter insertion the patient has at least 900 mL of urine output intermittently throughout the day with clamping in between. Prior to Decker catheter insertion the patient was found to have about 505 mL and bladder scan. Patient is also significantly orthostatic with blood pressure laying down of 97/38 and standing up about 85/51. Patient also came in with elevated BUN of 43 and creatinine of 3.84 with estimated GFR of 12. Today they are BUN of 49 and creatinine of 4.55 with estimated GFR of 10 prior to insertion of Edcker catheter. She has mildly elevated potassium of 5.4 and 5.3. Her sodium is also mildly low at 133. She has mild acidosis with bicarb of 20. Previous records show that her baseline creatinine appears to be anywhere between 2.7-3.0+. This was confirmed from records from [facility] per Dr. Dennison who saw her sometime in July in the hospital. Patient and daughter are aware that the patient has chronic kidney disease stage IV-V. She has a left AV fistula placed 2 years ago which was apparently changed into a graft about a year ago and is currently functioning. Patient has seen Dr. Iniguez, her primary cabin equipment supervisor in [place] in about a month ago and was told that she is doing fine. Patient does have proteinuria. Her kidney ultrasound showed a small right kidney measuring at 8.7 cm and left kidney of 11.5 cm. Today she claims that she feels better and less tired although she still has decreased appetite. She denies any nausea nor vomiting. At home she thinks that she is eating and drinking fluids okay. She denies any diarrhea nor vomiting prior to admission. Past Medical History Cardiac Medical History: Reports: Atrial Fibrillation, CHF-Systolic, Coronary Artery Disease - stent placed, Hypertension-primary, Myocardial Infarction, Other - Orthostatic hypotension Pulmonary Medical History: Reports: Asthma, Pneumonia Endocrine Medical History: Reports: Diabetes Mellitus Type 2 Renal/ Medical History: Reports: Chronic Kidney Disease Stage IV, Metabolic Acidosis Malignancy Medical History: Reports: Breast Cancer - L GI Medical History: Reports: Gastroesophageal Reflux Disease Musculoskeltal Medical History: Reports: Arthritis Hematology Medical History: Reports Anemia of Chronic Kidney Disease Past Surgical History Past Surgical History: Reports: Cardiac Catheterization - 1X stent, Section, Cholecystectomy, Dialysis Access Surgery AVF, Dialysis Access Surgery AVG, Mastectomy - L 08/23/11, Tubal Ligation Social History Information Source: Patient, Relative, [facility] Records Lives with: Family Smoking Status: Former Smoker Frequency of Alcohol Use: None Hx Recreational Drug Use: No Drugs: None Hx Prescription Drug Abuse: No - Advance Directive Resuscitation Status: Full Code Family History Family History: CAD - Father, Hypertension - Brother and son Parental Family History Reviewed: Yes Children Family History Reviewed: Yes Sibling(s) Family History Reviewed.: Yes Medication/Allergy Home Medications: Albuterol Sulfate [Albuterol Sulfate 2.5mg/3 mL] 2.5 ml NEB RTQ4HP PRN 11/22/17 Albuterol Sulfate [Proair HFA Inhalation Aerosol 8.5 gm MDI] 2 puff IH Q4HP PRN 11/22/17 Allopurinol [Zyloprim 100 mg Tablet] 200 mg PO QAM 11/22/17 Anastrozole [Arimidex 1 mg Tablet] 1 mg PO QAM 11/22/17 Atorvastatin Calcium [Lipitor 80 mg Tablet] 80 mg PO QHS 11/22/17 Carvedilol [Coreg 25 mg Tablet] 50 mg PO Q12 11/22/17 Citalopram Hydrobromide [Celexa 20 mg Tablet] 20 mg PO QPM 11/22/17 Clopidogrel Bisulfate [Plavix 75 mg Tablet] 75 mg PO QAM 11/22/17 Docusate Sodium [Colace 100 mg Capsule] 100 mg PO QPM 11/22/17 Ergocalciferol (Vitamin D2) [Vitamin D2] 50,000 unit PO .15THOFEVERYMONTH Gabapentin [Neurontin 400 mg Capsule] 800 mg PO QPM 11/22/17 Hydrocodone/Acetaminophen [[place] 5-325 Tablet] 1 tab PO Q8HP PRN 11/22/17 Lorazepam [Ativan 1 mg Tablet] 1 mg PO TIDP PRN 11/22/17 Magnesium Oxide [Mag-Ox 400 mg Tablet] 400 mg PO QAM 11/22/17 Pantoprazole Sodium [Protonix] 40 mg PO QAM 11/22/17 Sacubitril/Valsartan [Entresto 24 mg/26 mg Tablet] 1 tab PO Q12 11/22/17 Sertraline HCl [Zoloft] 25 mg PO QAM 11/22/17 Sitagliptin Phosphate [Januvia 25 mg Tablet] 25 mg PO QAM 11/22/17 Allergies/Adverse Reactions: codeine [Codeine] Allergy (Unknown, Verified 11/22/17 10:56) itching Cough medicine with Codeine Allergy (Intermediate, Uncoded 11/22/17 10:56) Hyperactivity IV contrast dye Allergy (Unknown, Uncoded 11/22/17 10:56) Kidney failure Review of Systems All systems: reviewed and no additional remarkable complaints except as stated Review of Systems: Constitutional: ABSENT: chills, fever(s), headache(s), weight gain, weight loss ; admits fatigue Eyes: ABSENT: visual disturbances Ears: ABSENT: hearing changes Cardiovascular: ABSENT: chest pain, dyspnea on exertion, edema, orthropnea, palpitations Respiratory: ABSENT: cough, dyspnea, hemoptysis Gastrointestinal: ABSENT: abdominal pain, constipation, diarrhea, hematemesis, hematochezia, nausea, vomiting Genitourinary: ABSENT: dysuria, hematuria Musculoskeletal: ABSENT: joint swelling Integumentary: ABSENT: rash, wounds Neurological: ABSENT: abnormal gait, abnormal speech, confusion, dizziness, focal weakness, numbness, syncope Psychiatric: ABSENT: anxiety, depression Endocrine: ABSENT: cold intolerance, heat intolerance, polydipsia, polyuria Hematologic/Lymphatic: ABSENT: easy bleeding, easy bruising, lymphadenopathy Physical Exam Vital Signs: Temp Pulse Resp BP Pulse Ox 98.3 F 77 18 103/50 L 98 11/23/17 12:00 11/23/17 14:00 11/23/17 12:00 11/23/17 12:00 11/23/17 12:00 Intake & Output 11/22/17 11/23/17 11/24/17 06:59 06:59 06:59 Intake Total 200 Output Total 50 Balance 150 Weight 87 kg Exam: General appearance: No acute distress, cooperative, well-developed, well- nourished Head exam: PRESENT: atraumatic, normocephalic Eye exam: PRESENT: Conjunctiva slightly pale, EOMI, PERRLA. ABSENT: conjunctival injection, scleral icterus Mouth exam: PRESENT: moist, neck supple, tongue midline Neck exam: PRESENT: full ROM. ABSENT: carotid bruit, JVD, lymphadenopathy, thyromegaly Respiratory exam: PRESENT: Diminished to auscultation bilaterally. Few crackles bilaterally ABSENT: Rhonchi, stridor, wheezes Cardiovascular exam: PRESENT: Irregular rate and rhythm, +S1, +S2. Grade 2/6 systolic murmur Pulses: PRESENT: normal radial pulses, normal dorsalis pedis pulses; she has left arm AV graft with good bruit and thrill GI/Abdominal exam: PRESENT: normal bowel sounds, soft. ABSENT: guarding, mass, tenderness Rectal exam: Deferred Extremities exam: PRESENT: full ROM. ABSENT: calf tenderness, pedal edema Musculoskeletal: PRESENT: full ROM. ABSENT: deformity Neurological exam: PRESENT: alert, Awake, Oriented to person, Oriented to place , Oriented to time, reflexes normal, CN II-XII grossly intact. ABSENT: motor sensory deficit Psychiatric exam: PRESENT: appropriate affect, normal mood. ABSENT: homicidal ideation, suicidal ideation Skin exam: PRESENT: intact, dry, warm. ABSENT: rash Results Laboratory Results: 11/23/17 04:08 11/23/17 04:08 Sodium 133.7 L Potassium 5.3 H Chloride 100 Carbon Dioxide 20 L Anion Gap 14 BUN 49 H Creatinine 4.55 H Est GFR ( Amer) 12 L Est GFR (Non-Af Amer) 10 L Glucose 110 Calcium 9.3 11/23/17 16:07 NT-Pro-B Natriuret Pep 2610 H Impressions: Carotid Doppler Study 11/22/17 00:00 IMPRESSION: Atherosclerotic changes with 50 to 69% stenosis of the right internal carotid and less than 50% stenosis on the left. Chest X-Ray 11/22/17 10:26 IMPRESSION: Cardiomegaly without pulmonary edema. Head CT 11/22/17 11:46 IMPRESSION: CHRONIC CHANGES OF ATROPHY AND MICROVASCULAR ISCHEMIA. NO ACUTE PROCESS. EVIDENCE OF ACUTE STROKE: NO. Renal Ultrasound 11/23/17 09:42 IMPRESSION: 1. Mild diffuse increased echogenicity of the kidneys, may be on the basis of underlying medical renal disease. 2. There are two fairly well-circumscribed right renal hypoechoic lesions. These findings may correlate with the lesions identified on the CT and MRI examinations dated 06/08/2015 and 06/23/2015. 3. Left renal cyst. 4. No evidence of hydronephrosis. 5. The right kidney is smaller in size than the left. Assessment & Plan - Diagnosis (1) [id number] kidney injury Qualifiers: Chronic kidney disease stage: stage 5, not on chronic dialysis Is this a current diagnosis for this admission?: Yes Plan: Worsening of kidney function likely secondary to combination of the episode of hypotension, blood pressure medications especially Entresto and carvedilol, urinary retention, and UTI. Treatment of the above and holding off blood pressure medications with hopefully improve the patient's kidney function to her baseline. At this time there is no indication for any urgent renal replacement therapy. Patient is not uremic no fluid overloaded. Patient is to follow-up with her primary cabin equipment supervisor upon discharge. (2) Hypotension Is this a current diagnosis for this admission?: Yes Plan: I agree with holding Entresto and carvedilol at this point. I think if she gets discharged she needs to follow-up with her import/export clerk to decide on the medication that she would need for her heart at the same time not causing hypotension. Midodrine is an option for the patient but I think we can leave that to her import/export clerk on her follow-up. (3) Chronic systolic (congestive) heart failure Is this a current diagnosis for this admission?: Yes (4) UTI (urinary tract infection) Qualifiers: Urinary tract infection type: acute cystitis Hematuria presence: with hematuria Qualified Code(s): N30.01 - Acute cystitis with hematuria Is this a current diagnosis for this admission?: Yes Plan: Patient on ceftriaxone. Urine culture pending. (5) Chronic kidney disease, stage IV (severe) Is this a current diagnosis for this admission?: Yes Plan: Baseline kidney function is most likely between stage IV to stage V based on records [facility]. (6) Cystocele with prolapse Is this a current diagnosis for this admission?: Yes Plan: Evaluated by control cabinet assembler, Dr. Johnson (7) Anemia in CKD (chronic kidney disease) Is this a current diagnosis for this admission?: Yes Plan: Procrit not required at this point. (8) Hyperkalemia Is this a current diagnosis for this admission?: Yes Plan: Mild, patient was given a dose of Kayexalate. (9) Hyponatremia Is this a current diagnosis for this admission?: Yes Plan: Mild, could be due to her chronic ischemic cardiomyopathy or CHF. (10) Metabolic acidosis Is this a current diagnosis for this admission?: Yes Plan: Mild, monitor at this time. (11) Coronary artery disease Qualifiers: Coronary Disease-Associated Artery/Lesion type: [place] artery Associated angina: without angina Is this a current diagnosis for this admission?: Yes (12) Diabetes mellitus type II, controlled Is this a current diagnosis for this admission?: Yes (13) Syncope Qualifiers: Syncope type: unspecified Qualified Code(s): R55 - Syncope and collapse Is this a current diagnosis for this admission?: Yes - Notes Notes: Thank you very much for this consultation. I will follow patient with you. - Time Time Spent: Greater than 70 Minutes
[2017-11-23] MEDS ORDERED: ACETAMINOPHEN 325 MG TABLET PO PRN (19:40)
[2017-11-23] MEDS: ATORVASTATIN CALCIUM 80 MG TABLET PO SCH (21:53)
[2017-11-23] MEDS: CEFTRIAXONE SODIUM 1,000 MG in DEXTROSE 5%-WATER 50 ML IV SCH (21:53)
[2017-11-24 07:08] LABS: ANION GAP 11 (5-19); BLOOD UREA NITROGEN 56 mg/dL (7-20); CALCIUM 8.8 mg/dL (8.4-10.2); CARBON DIOXIDE 20 mmol/L (22-30); CHLORIDE 100 mmol/L (98-107); GLUCOSE 118 mg/dL (75-110); POTASSIUM 5.4 mmol/L (3.6-5.0); SODIUM 130.9 mmol/L (137-145)
[2017-11-24] MEDS: LANSOPRAZOLE 30 MG TAB.RAP.DR PO SCH (07:41)
[2017-11-24] MEDS ORDERED: DEXTROSE 50%-WATER 25 GM/50 ML DISP.SYRIN IV ONE (10:00)
[2017-11-24] MEDS ORDERED: CALCIUM GLUCONATE 1000 MG/10 ML INJ IV ONE (10:00)
[2017-11-24] MEDS ORDERED: INSULIN REG, HUMAN 100 UNIT/ML 3 ML VIAL (PYX) SUBCUT ONE (10:00)
--- NOTE | 2017-11-24 10:05 | RADIOLOGY REPORT (SQ) ---
EXAM DESCRIPTION: CHEST SINGLE VIEW COMPLETED DATE/TIME: 11/24/2017 9:56 am REASON FOR STUDY: r/o fluid overload COMPARISON: 11/22/2017. EXAM PARAMETERS: NUMBER OF VIEWS: One view. TECHNIQUE: Single frontal radiographic view of the chest acquired. RADIATION DOSE: NA LIMITATIONS: None. FINDINGS: LUNGS AND PLEURA: No opacities, masses or pneumothorax. No pleural effusion. MEDIASTINUM AND HILAR STRUCTURES: No masses. Contour normal. HEART AND VASCULAR STRUCTURES: Heart upper limits of normal in size. Normal vasculature. BONES: No acute findings. Chronic changes in the left shoulder. HARDWARE: Defibrillator. OTHER: No other significant finding. IMPRESSION: STABLE APPEARANCE. MILD CARDIOMEGALY. NO ACUTE RADIOGRAPHIC FINDING IN THE CHEST. TECHNICAL DOCUMENTATION: JOB ID: [id number] [employer]- All Rights Reserved Reading location - IP/workstation name: [email or web address]
[2017-11-24] MEDS: LIOTHYRONINE 5 MCG PO SCH (10:09)
[2017-11-24] MEDS: ANASTROZOLE 1 MG TABLET PO SCH (10:10)
[2017-11-24] MEDS: SITAGLIPTIN PHOSPHATE 25 MG TABLET PO SCH (10:10)
[2017-11-24] MEDS: SERTRALINE HCL 50 MG TABLET PO SCH (10:11)
[2017-11-24] MEDS: MAGNESIUM OXIDE 400 MG TABLET PO SCH (10:11)
[2017-11-24] MEDS: ALLOPURINOL 100 MG TABLET PO SCH (10:11)
[2017-11-24 10:14] LABS: ARTERIAL BLOOD BASE EXCESS -4.7 mmol/L; ARTERIAL BLOOD H2CO3 1.33 mmol/L (1.05-1.35); ARTERIAL BLOOD HCO3 21.5 mmol/L (20-24); ARTERIAL BLOOD PCO2 44.3 mmHg (35-45); ARTERIAL BLOOD PO2 76.1 mmHg (80-100); ARTERIAL BLOOD TOTAL CO2 22.9 mmol/L (21-25)
[2017-11-24 10:16] LABS: ARTERIAL BLOOD FIO2 21%
--- NOTE | 2017-11-24 13:21 | PDOC TRANSFER SUMMARY ---
General Admission Date/PCP: 11/22/17 13:37 CAS DENG MD Resuscitation Status: Full Code - Transfer Diagnosis (1) Hypotension Is this a current diagnosis for this admission?: Yes (2) Mfemn-kc-[id number] kidney injury Is this a current diagnosis for this admission?: Yes (3) Syncope Is this a current diagnosis for this admission?: Yes (4) Coronary artery disease Is this a current diagnosis for this admission?: Yes (5) Chronic systolic (congestive) heart failure Is this a current diagnosis for this admission?: Yes (6) History of atrial fibrillation Is this a current diagnosis for this admission?: Yes (7) Diabetes mellitus type II, controlled Is this a current diagnosis for this admission?: Yes (8) Acute urinary retention Is this a current diagnosis for this admission?: Yes (9) Cystocele with prolapse Is this a current diagnosis for this admission?: Yes - Transfer Medications Home Medications: Albuterol Sulfate [Albuterol Sulfate 2.5mg/3 mL] 2.5 ml NEB RTQ4HP PRN 11/22/17 Albuterol Sulfate [Proair HFA Inhalation Aerosol 8.5 gm MDI] 2 puff IH Q4HP PRN 11/22/17 Allopurinol [Zyloprim 100 mg Tablet] 200 mg PO QAM 11/22/17 Anastrozole [Arimidex 1 mg Tablet] 1 mg PO QAM 11/22/17 Atorvastatin Calcium [Lipitor 80 mg Tablet] 80 mg PO QHS 11/22/17 Carvedilol [Coreg 25 mg Tablet] 50 mg PO Q12 11/22/17 Citalopram Hydrobromide [Celexa 20 mg Tablet] 20 mg PO QPM 11/22/17 Clopidogrel Bisulfate [Plavix 75 mg Tablet] 75 mg PO QAM 11/22/17 Docusate Sodium [Colace 100 mg Capsule] 100 mg PO QPM 11/22/17 Ergocalciferol (Vitamin D2) [Vitamin D2] 50,000 unit PO .15THOFEVERYMONTH Gabapentin [Neurontin 400 mg Capsule] 800 mg PO QPM 11/22/17 Hydrocodone/Acetaminophen [Keota 5-325 Tablet] 1 tab PO Q8HP PRN 11/22/17 Lorazepam [Ativan 1 mg Tablet] 1 mg PO TIDP PRN 11/22/17 Magnesium Oxide [Mag-Ox 400 mg Tablet] 400 mg PO QAM 11/22/17 Pantoprazole Sodium [Protonix] 40 mg PO QAM 11/22/17 Sacubitril/Valsartan [Entresto 24 mg/26 mg Tablet] 1 tab PO Q12 11/22/17 Sertraline HCl [Zoloft] 25 mg PO QAM 11/22/17 Sitagliptin Phosphate [Januvia 25 mg Tablet] 25 mg PO QAM 11/22/17 Transfer Medications: Current Medications Acetaminophen (Tylenol 325 Mg Tablet) 650 mg PO Q6HP PRN PRN Reason: FOR PAIN Stop: 12/23/17 19:39 Albuterol (Ventolin 0.083% Neb 2.5 Mg/3 Ml Ampul) 2.5 mg NEB RTQ4HP PRN PRN Reason: WHEEZING/SHORTNESS OF BREATH Stop: 12/22/17 16:02 Albuterol (Proair Hfa Inhalation Aerosol 8.5 Gm Mdi) 2 puff IH Q4HP PRN PRN Reason: WHEEZING/SHORTNESS OF BREATH Stop: 12/22/17 16:02 Allopurinol (Zyloprim 100 Mg Tablet) 200 mg PO QAM ABHIJIT Stop: 12/23/17 07:59 Last Admin: 11/24/17 10:11 Dose: 200 mg Anastrozole (Arimidex 1 Mg Tablet) 1 mg PO QAM ABHIJIT Stop: 12/23/17 07:59 Last Admin: 11/24/17 10:10 Dose: 1 mg Atorvastatin Calcium (Lipitor 80 Mg Tablet) 80 mg PO QHS ABHIJIT Stop: 12/22/17 21:59 Last Admin: 11/23/17 21:53 Dose: 80 mg Citalopram Hydrobromide (Celexa 20 Mg Tablet) 20 mg PO QPM ABHIJIT Stop: 12/22/17 17:59 Last Admin: 11/23/17 17:09 Dose: 20 mg Clopidogrel Bisulfate (Plavix 75 Mg Tablet) 75 mg PO QAM ABHIJIT Stop: 12/23/17 07:59 Last Admin: 11/23/17 08:13 Dose: 75 mg Dextrose (Dextrose Inj 50% Syringe (25 Gm/50 Ml)) 12.5 gm IV PRN PRN; Protocol PRN Reason: FOR BG 50-69 IN ALERT PATIENT Stop: 12/22/17 16:14 Dextrose (Dextrose Inj 50% Syringe (25 Gm/50 Ml)) 25 gm IV PRN PRN; Protocol PRN Reason: PER PROTOCOL Stop: 12/22/17 16:14 Docusate Sodium (Colace 100 Mg Capsule) 100 mg PO QPM [facility] Stop: 12/22/17 17:59 Last Admin: 11/23/17 17:07 Dose: Not Given Glucagon (Glucagen Inj 1 Mg Vial) 1 mg IM PRN PRN; Protocol PRN Reason: Evaluate for BG < 70 Stop: 12/22/17 16:14 Glucose (Glutose 40% Gel 15 Gm Tube) 15 gm PO PRN PRN; Protocol PRN Reason: FOR BG 50-69 IN ALERT PATIENT Stop: 12/22/17 16:14 Glucose (Glutose 40% Gel 15 Gm Tube) 30 gm PO PRN PRN; Protocol PRN Reason: FOR BG < 50 IN ALERT PATIENT Stop: 12/22/17 16:14 Heparin Sodium (Porcine) (Heparin Inj 5,000 Units/Ml 1 Ml Syringe) 5,000 unit SUBCUT Q12 [facility] Stop: 12/22/17 21:59 Last Admin: 11/23/17 21:54 Dose: 5,000 unit Sodium Chloride (Nacl 0.9% 1000 Ml Iv Soln) 1,000 mls @ 50 mls/hr IV CONTINUOUS PRN PRN Reason: THIS MED IS NOT "PRN" Stop: 12/22/17 18:01 Last Infusion: 11/24/17 02:10 Dose: Infused Ceftriaxone Sodium 1,000 mg/ (Dextrose) 50 mls @ 100 mls/hr IV QHS [facility] Stop: 11/29/17 21:59 Last Infusion: 11/23/17 22:20 Dose: Infused Influenza Virus Vaccine Quadrival (Fluarix Adlt Quad 2017- Vac 0.5 Ml Syr) 0.5 ml IM .DISCHARGE PRN PRN Reason: THIS MED IS NOT "PRN" Stop: 12/22/17 15:30 Insulin Human Regular (Humulin R (Pyxis) Insulin 100 Unit/Ml 3ml) 0 - 12 unit SUBCUT ACHSP PRN; Protocol PRN Reason: PER PROTOCOL Stop: 12/22/17 16:14 Lansoprazole (Prevacid 30 Mg Odt Tablet) 30 mg PO Q6AM [facility] Stop: 12/23/17 05:59 Last Admin: 11/24/17 07:41 Dose: Not Given Magnesium Oxide (Mag-Ox 400 Mg Tablet) 400 mg PO QAM ABHIJIT Stop: 12/23/17 07:59 Last Admin: 11/24/17 10:11 Dose: 400 mg (Pom) Liothyronine (Tab 5 Mcg) 1 dose PO DAILY ABHIJIT Stop: 12/23/17 13:59 Last Admin: 11/24/17 10:09 Dose: 15 mcg Sertraline HCl (Zoloft 50 Mg Tablet) 25 mg PO QAM ABHIJIT Stop: 12/23/17 07:59 Last Admin: 11/24/17 10:11 Dose: 25 mg Sitagliptin Phosphate (Januvia 25 Mg Tablet) 25 mg PO QAM ABHIJIT Stop: 12/23/17 07:59 Last Admin: 11/24/17 10:10 Dose: 25 mg Sodium Chloride (Saline Flush 2.5 Ml Monoject Prefil Syrin) 2.5 ml IV Q8 [facility] Stop: 12/22/17 13:59 Last Admin: 11/24/17 07:41 Dose: Not Given - Allergies Allergies/Adverse Reactions: codeine [Codeine] Allergy (Unknown, Verified 11/22/17 10:56) itching Cough medicine with Codeine Allergy (Intermediate, Uncoded 11/22/17 10:56) Hyperactivity IV contrast dye Allergy (Unknown, Uncoded 11/22/17 10:56) Kidney failure Hospital Course Hospital Course: HPI: JENNIFER GRUBBS is a 72 year old female with a past medical history of congestive heart failure with last known EF of 50%, coronary artery disease with prior stenting, history of AICD placement, hypertension, CKD V-has already a fistula but not yet on dialysis, asthma, history of hemorrhagic stroke (right temporal bleed) in 1985 and history of TIA last year with no residual neurologic deficits, hypothyroidism, anxiety and depression, remote history of paroxysmal AFib (not on anticoagulation due to history of hemorrhagic stroke), obstructive sleep apnea noncompliant to CPAP, history of left arm DVT in 2006, history of left breast cancer with prior mastectomy and currently on anastrozole and previous intracranial AV malformation who was brought in due to lethargy at home. Upon encounter, patient is fully awake and able x4. Family is at the bedside. Patient apparently had previous history of syncope. She had one episode last year. On 11/10/17, patient had a syncopal episode at home and was brought to the [facility] in [place]. Family says that her blood pressures were low at that time and she did have orthostasis. It was suspected to be medication induced. Patient was recently started on Entresto 5 months ago. She says that her tombstone erector helper has recently recommended cutting down the dose from 49/51 mg to 24/26 mg. Daughter says that she chest started cutting down on the dose 2 days ago. Patient also takes Coreg 25 mg twice daily, Keota and lorazepam as needed. Patient was admitted last year for syncope and apparently syncopal workup was negative aside from a carotid Doppler which showed 50-60% right ICA stenosis and less than 50% left ICA stenosis in April 2016. Per family, patient was apparently well. Daughter says that they have consulted Jeffry in her bedroom. Patient was apparently sitting on her chair and was sleeping early this morning when the daughter noticed at that she was not breathing deep. They went to check on her bedroom and patient was unarousable for 30 minutes. They called EMS and upon arrival, patient's blood pressure was noted to be 70/40. Patient was given 300 cc of IV fluids in route. Upon arrival to the ER, patient was already fully awake and was AO x4. She denies any headache, lightheadedness, dizziness or dimming of vision prior to the episode. She denies any chest pain, palpitations or shortness of breath. She says she feels perfectly well. She denies any weakness of the arms or legs, tingling sensation or numbness. No dysarthria, aphasia or speech problems. Orthostatic vital signs in the ER are as follows: supine 100/53, sitting 99/60, standing 87/50. COURSE: 1. Hypotension: Entresto and Coreg were held upon admission. She was started on IV fluids at 100 cc/hr initially then cut down to 50 cc/hr due to her CHF. Her pressures Patient was noted to be hypotensive at 70/40 upon arrival by EMS. This did improve with some fluids En route. Patient was ready fully awake and coherent upon arrival to the ER. Her hypotension likely is medication-induced (Entresto and Coreg). Blood pressures did improve but still ran on the low normal end 90/ 50s to 110/60s. Patient does not appear to have acute infection or sepsis causing low blood pressures. Urinalysis does show signs of possible UTI however patient denies any lower urinary tract symptoms including dysuria, hematuria, frequency or flank pains or fever. She was empirically started with Rocephin but blood and urine cultures have been negative so far. 2. Acute on chronic renal failure. Acute renal failure is likely seocodnary to ATN from hypotension. Nephrology was consulted. Patient's creatinine continued to worsen (3.1 -> 3.8 -> 4.5 -> 4.7). Urine output overnight was 235 cc (7pm-7am ). She did have persistent hyperkalemia at 5.4 and was given kayexalate, Calcium , insulin and dextrose regimen. Discussed with nephro and plan was to possible initiate patient on dialysis but patient and family expressed they wanted to be transferred to [facility] for medical care as all her doctors are from [facility] including her executive chef assistant and tombstone erector helper. 3. Syncope: It is questionable if patient had a true syncope as she was sleeping on a chair when she was noted to be unarousable. She does have history of noncritical carotid stenosis. Repeat carotid Dopplers show stable changes from last year. Tele monitoring has been unremarkable. She had low blood pressures which likely caused her initial somnolence. Neurologic exam is completely normal. CT of the head is negative. EKG shows RBBB pattern. Anteroseptal changes are not new after comparing to old EKGs on record. 4. Acute urinary retention. Patient developed urinary retention. Catheter placement was difficult due to a cystocele. Ob-Recordings Librarian consulted and manually reduced the cystocele and was able to insert Decker. Discussed with Dr. Snowden, admitting hospitalist. She has accepted the patient but they don't have an available bed at the moment. She will be transferred to [facility] once they get a bed for her. Physical Exam Vital Signs: Temp Pulse Resp BP Pulse Ox 98.5 F 83 17 123/40 L 96 11/24/17 03:34 11/24/17 07:00 11/24/17 03:34 11/24/17 03:34 11/24/17 03:34 Intake & Output 11/23/17 11/24/17 11/25/17 06:59 06:59 06:59 Intake Total 200 800 Output Total 50 625 Balance 150 175 Weight 191 lb 12.835 oz 199 lb 15.348 oz Results Laboratory Results: 11/24/17 06:45 11/24/17 11/24/17 06:45 09:45 Carbonic Acid 1.33 HCO3/H2CO3 Ratio 16:1 ABG pH 7.30 L ABG pCO2 44.3 ABG pO2 76.1 L ABG HCO3 21.5 ABG O2 Saturation 94.0 ABG Base Excess -4.7 FiO2 21% Sodium 130.9 L Potassium 5.4 H Chloride 100 Carbon Dioxide 20 L Anion Gap 11 BUN 56 H Creatinine 4.72 H Est GFR ( Amer) 11 L Est GFR (Non-Af Amer) 9 L Glucose 118 H Calcium 8.8 11/23/17 16:07 NT-Pro-B Natriuret Pep 2610 H Impressions: Carotid Doppler Study 11/22/17 00:00 IMPRESSION: Atherosclerotic changes with 50 to 69% stenosis of the right internal carotid and less than 50% stenosis on the left. Head CT 11/22/17 11:46 IMPRESSION: CHRONIC CHANGES OF ATROPHY AND MICROVASCULAR ISCHEMIA. NO ACUTE PROCESS. EVIDENCE OF ACUTE STROKE: NO. Renal Ultrasound 11/23/17 09:42 IMPRESSION: 1. Mild diffuse increased echogenicity of the kidneys, may be on the basis of underlying medical renal disease. 2. There are two fairly well-circumscribed right renal hypoechoic lesions. These findings may correlate with the lesions identified on the CT and MRI examinations dated 06/08/2015 and 06/23/2015. 3. Left renal cyst. 4. No evidence of hydronephrosis. 5. The right kidney is smaller in size than the left. Chest X-Ray 11/24/17 00:00 IMPRESSION: STABLE APPEARANCE. MILD CARDIOMEGALY. NO ACUTE RADIOGRAPHIC FINDING IN THE CHEST.
[2017-11-24] MEDS: CLOPIDOGREL BISULFATE 75 MG TABLET PO SCH (14:35)
[2017-11-24] MEDS: HEPARIN SOD (PORCINE) 5,000 UNIT/ML 1 ML SYRINGE SUBCUT SCH (14:36)
[2017-11-24 14:49] VITALS: BP 97/43
--- NOTE | 2017-11-24 18:04 | Progress Note ---
Provider Note Provider Note: When patient and family were updated that [facility] is not able to take her today, family insisted on leaving AMA and driving patient themselves to [facility] today. Daughter signed AMA form and will drive patient to [facility].
== END 2017-11-24 17:20 | disposition left against medical advice (07) ==
LOC: ER 10:22 → EH 13:37 → 5 15:18
PROVIDERS: ADMIT Internal Medicine; ATTEND Internal Medicine
DX: I95.9 Hypotension, unspecified (principal); I13.2 Hypertensive heart and chronic kidney disease with heart failure and with stage 5 chronic kidney disease, or end stage renal disease; N18.5 Chronic kidney disease, stage 5; I50.22 Chronic systolic (congestive) heart failure; N17.9 Acute kidney failure, unspecified; E11.22 Type 2 diabetes mellitus with diabetic chronic kidney disease; R55 Syncope and collapse; R33.9 Retention of urine, unspecified; Z86.79 Personal history of other diseases of the circulatory system; I25.10 Atherosclerotic heart disease of native coronary artery without angina pectoris; N81.4 Uterovaginal prolapse, unspecified; E87.5 Hyperkalemia; I45.10 Unspecified right bundle-branch block; I25.5 Ischemic cardiomyopathy; F32.9 Major depressive disorder, single episode, unspecified; R80.9 Proteinuria, unspecified; E87.2 Acidosis; D63.1 Anemia in chronic kidney disease; E87.1 Hypo-osmolality and hyponatremia; I25.2 Old myocardial infarction; Z86.73 Personal history of transient ischemic attack (TIA), and cerebral infarction without residual deficits; Z87.891 Personal history of nicotine dependence; Z95.5 Presence of coronary angioplasty implant and graft; Z79.02 Long term (current) use of antithrombotics/antiplatelets; Z79.899 Other long term (current) drug therapy; Z95.810 Presence of automatic (implantable) cardiac defibrillator; Z91.19 Patient's noncompliance with other medical treatment and regimen; Z86.718 Personal history of other venous thrombosis and embolism; Z85.3 Personal history of malignant neoplasm of breast; Z90.12 Acquired absence of left breast and nipple; Z98.51 Tubal ligation status; Z82.49 Family history of ischemic heart disease and other diseases of the circulatory system
CPT/HCPCS: 93005; 99285; 36415 ×3; 87040; 87086; 82962 ×3; 82803; 82570; 84300; 85025; 85610; 80048 ×2; 80053; 81001; 83036; 83880; 93880; 71045 ×2; 76770; 70450; 93010; 36600; G0378 ×4; A9270 ×18; J0610; J1644 ×2; J3490 ×3; J0696 ×2; J7030; J1815

== ENCOUNTER → 2018-01-09 | Outpatient (CLI) | payer MEDICARE, BC, OTHER ==
[2018-01-09 13:08] LABS: ABSOLUTE EOSINOPHILS # (AUTO) 0.2 10^3/uL (0.0-0.6); ABSOLUTE LYMPHOCYTES (AUTO) 1.1 10^3/uL (0.5-4.7); ABSOLUTE MONOCYTES (AUTO) 0.4 10^3/uL (0.1-1.4); ABSOLUTE NEUT (AUTO) 4.5 10^3/uL (1.7-8.2); BASOPHILS % (AUTO) 0.5 % (0-2); EOSINOPHILS % (AUTO) 3.4 % (0-6); HEMATOCRIT 25.6 % (36.0-47.0); HEMOGLOBIN 8.6 g/dL (12.0-15.5); MEAN CORPUSCULAR HGB CONC 33.7 g/dL (32.0-36.0); MEAN CORPUSCULAR VOLUME 95 fl (80-97); PLATELET COUNT 180 10^3/uL (150-450); RED CELL DISTRIBUTION WIDTH 17.1 % (11.5-14.0); SEGMENTED NEUTROPHILS % (AUTO) 72.1 % (42-78); TOTAL CELLS COUNTED % (AUTO) 100 %; WHITE BLOOD COUNT 6.2 10^3/uL (4.0-10.5)
[2018-01-09 16:45] LABS: URINE CREATININE 33.6 mg/dL (15-278)
[2018-01-09 16:49] LABS: URINE PROTEIN 278.9 mg/dL (<12)
[2018-01-10 11:40] LABS: ALBUMIN 3.2 g/dL (3.5-5.0); ANION GAP 14 (5-19); BLOOD UREA NITROGEN 48 mg/dL (7-20); CARBON DIOXIDE 23 mmol/L (22-30); CHLORIDE 98 mmol/L (98-107); GLUCOSE 176 mg/dL (75-110); PHOSPHORUS 5.1 mg/dL (2.5-4.5); SODIUM 134.7 mmol/L (137-145)
== END ==
LOC: OD 12:26
PROVIDERS: ATTEND Internal Medicine Nephrology
DX: I12.9 Hypertensive chronic kidney disease with stage 1 through stage 4 chronic kidney disease, or unspecified chronic kidney disease (principal); N18.3 Chronic kidney disease, stage 3 (moderate); R60.9 Edema, unspecified
CPT/HCPCS: 36415; 80048; 80069; 82570; 83970; 84156; 85025

== ENCOUNTER → 2018-01-18 | Outpatient (CLI) | payer MEDICARE, BC, OTHER ==
--- NOTE | 2018-01-18 15:43 | RADIOLOGY REPORT (SQ) ---
EXAM DESCRIPTION: U/S RETROPERITON (RENAL/AORTA) COMPLETED DATE/TIME: 01/18/2018 3:30 pm REASON FOR STUDY: CKD III (N18.3), UTI (N39.0) N18.3 CHRONIC KIDNEY DISEASE, STAGE 3 (MODERATE) N39 .0 URINARY TRACT INFECTION, SITE NOT SPECIFIED COMPARISON: Renal ultrasound 11/23/2017, 02/24/2014 TECHNIQUE: Dynamic and static grayscale images acquired of the kidneys and bladder and recorded on P ACS. Additional selected color Doppler and spectral images recorded. LIMITATIONS: None. FINDINGS: RIGHT KIDNEY: 9 cm in length with diffuse increased cortical echogenicity with cortical t hinning. No hydronephrosis. Along the upper pole right kidney, a well-circumscribed solid nodule is present measuring about 3.5 cm in diameter, similar compared to 11/23/2017. Benign 1.4 cm right upp er pole renal cortical cyst. No hydronephrosis. No calcifications. LEFT KIDNEY: Normal size 9 cm in length with diffuse increased cortical echogenicity with cortical t hinning. Multiple left renal cortical cysts are present, the largest is 5 cm in the mid pole left ki dney. No solid or suspicious masses. No hydronephrosis. No calcifications. BLADDER: No masses. OTHER FINDINGS: No other significant finding. IMPRESSION: No hydronephrosis Increased renal cortical echogenicity and cortical thinning from medical renal disease Bilateral renal cortical cysts 3.5 cm solid mass right upper pole kidney TECHNICAL DOCUMENTATION: JOB ID: [id number] [employer]- All Rights Reserved Reading location - IP/workstation name: [email or web address]
== END ==
LOC: RAD 14:38
PROVIDERS: ATTEND Internal Medicine Nephrology
DX: N18.3 Chronic kidney disease, stage 3 (moderate) (principal); N39.0 Urinary tract infection, site not specified
CPT/HCPCS: 76770

== ENCOUNTER 2018-02-21 20:25 | Emergency (ER) | payer MEDICARE, BC, OTHER ==
--- NOTE | 2018-02-21 21:06 | ER Document Report ---
ED General - General Mode of Arrival: Ambulatory Information source: Patient TRAVEL OUTSIDE OF THE [place] IN LAST 30 DAYS: No <GERALDINE PIZARRO - Last Filed: 02/21/18 23:39> <VON VIVAR - Last Filed: 02/21/18 23:58> - General Chief Complaint: Facial Injury Stated Complaint: FALL Time Seen by Provider: 02/21/18 20:45 Notes: Patient is a 73 year old female with CAD (stents) presents to the emergency department complaining of a laceration to the back of her head secondary a mechanical trip and fall. Patient states she was trying to close a kitchen door when she lost her footing and fell. She states she hit her head on a metal barstool. She denies any loss of consciousness, chest pain, nausea, trouble breathing or neck pain. Patient complains of some head pain. Patient states she does not want to have any blood work or urine testing done due to feeling "fine". Patient states she is currently on Plavix. She states she was in [place] earlier today having routine blood work performed for her oncologist. She states she was told to have repeat blood work done tomorrow at [facility]. (GERALDINE PIZARRO) - Related Data Allergies/Adverse Reactions: codeine [Codeine] Allergy (Unknown, Verified 02/21/18 20:46) itching povidone-iodine [From Betadine] Allergy (Verified 02/21/18 20:46) soap [From Betadine] Allergy (Verified 02/21/18 20:46) Cough medicine with Codeine Allergy (Intermediate, Uncoded 02/21/18 20:46) Hyperactivity IV contrast dye Allergy (Unknown, Uncoded 02/21/18 20:46) Kidney failure silk tape Allergy (Uncoded 02/21/18 20:46) Past Medical History - General Information source: Patient - Social History Smoking Status: Former Smoker Frequency of alcohol use: None Drug Abuse: None Family History: None, Reviewed & Not Pertinent Patient has suicidal ideation: No Patient has homicidal ideation: No - Past Medical History Cardiac Medical History: Reports: Hx Atrial Fibrillation, Hx Congestive Heart Failure, Hx Coronary Artery Disease - stent placed, Hx Heart Attack, Hx Hypertension Denies: Hx Heart Murmur Pulmonary Medical History: Reports: Hx Asthma, Hx Pneumonia Neurological Medical History: Reports: Hx Cerebrovascular Accident Endocrine Medical History: Reports: Hx Diabetes Mellitus Type 1, Hx Diabetes Mellitus Type 2 Malignancy Medical History: Reports: Hx Breast Cancer - L GI Medical History: Reports: Hx Gastroesophageal Reflux Disease Musculoskeletal Medical History: Reports Hx Arthritis Past Surgical History: Reports: Hx Abdominal Surgery - hernia repair, Hx Cardiac Catheterization - 1X stent, Hx Cardiac Surgery - pacemaker/defibulator, Hx Ce sarean Section, Hx Cholecystectomy, Hx Mastectomy - L 08/23/11, Hx Tubal Ligation - Immunizations Hx Diphtheria, Pertussis, Tetanus Vaccination: Yes Hx Pneumococcal Vaccination: 11/12/10 <JUAREZ,JERRYBRYANNA - Last Filed: 02/21/18 23:39> Review of Systems - Review of Systems Constitutional: No symptoms reported EENT: No symptoms reported Cardiovascular: No symptoms reported Respiratory: No symptoms reported Gastrointestinal: No symptoms reported Genitourinary: No symptoms reported Musculoskeletal: See HPI Skin: No symptoms reported, See HPI Hematologic/Lymphatic: No symptoms reported Neurological/Psychological: No symptoms reported -: Yes All other systems reviewed and negative <GERALDINE PIZARRO - Last Filed: 02/21/18 23:39> Physical Exam <JUAREZ,JERRYBRYANNA - Last Filed: 02/21/18 23:39> - Vital signs Vitals: Temp Pulse Resp BP Pulse Ox 97.7 F 78 18 150/54 H 99 02/21/18 20:37 02/21/18 20:37 02/21/18 20:37 02/21/18 20:37 02/21/18 20:37 - Notes Notes: GENERAL: Alert, interacts well, chronically ill appearing. No acute distress. HEAD: Normocephalic. Contusion to the left periorbital region. 1.5 cm laceration to the posterior parietal scalp. EYES: Pupils equal, round, and reactive to light. Extraocular movements intact. ENT: Oral mucosa moist, tongue midline. NECK: Full range of motion. Supple. Trachea midline. LUNGS: Clear to auscultation bilaterally, no wheezes, rales, or rhonchi. No respiratory distress. HEART: Regular rate and rhythm. No murmurs, gallops, or rubs. ABDOMEN: Soft, non-tender. Non-distended. Bowel sounds present in all 4 quadrants. EXTREMITIES: Moves all 4 extremities spontaneously. NEUROLOGICAL: Alert and oriented x3. Normal speech. PSYCH: Normal affect, normal mood. SKIN: Warm, dry, normal turgor. No rashes or lesions noted. (GERALDINE PIZARRO) Course - Diagnostic Test Radiology reviewed: Reports reviewed <VON VIVAR - Last Filed: 02/21/18 23:58> - Re-evaluation Re-evalutation: 02/21/18 23:00 Patient is a 73-year-old female who had a mechanical fall. Patient fell, hit her head, and has a laceration. No acute findings on head CT. Patient otherwise feels at her baseline and does not want to do any blood work or urine. No recent illnesses. She is currently receiving treatment for cancer. Head has been repaired with Dermabond and overlapping hair. Patient feels well and would like to go home. She will return if there are any worsening or concerning symptoms. Stable for discharge. (VON VIVAR) - Vital Signs Vital signs: Temp Pulse Resp BP Pulse Ox 98.0 F 79 18 113/61 96 02/21/18 23:27 02/21/18 23:27 02/21/18 23:27 02/21/18 23:27 02/21/18 23:27 Procedures - Laceration/Wound Repair Posterior Head Wound length (cm): 1.5 Wound's Depth, Shape: Linear Laceration pre-procedure: Chloraprep applied Wound explored: Clean Irrigated w/ Saline (mLs): 200 Wound Repaired With: Dermabond Layer Closure?: No Post-procedure NV exam normal: Yes Complications: No <VON VIVAR - Last Filed: 02/21/18 23:58> Discharge <GERALDINE PIZARRO - Last Filed: 02/21/18 23:39> <VON VIVAR - Last Filed: 02/21/18 23:58> - Discharge Clinical Impression: Closed head injury Qualifiers: Encounter type: initial encounter Qualified Code(s): S09.90XA - Unspecified injury of head, initial encounter Scalp laceration Qualifiers: Encounter type: initial encounter Qualified Code(s): S01.01XA - Laceration without foreign body of scalp, initial encounter Condition: Stable Disposition: HOME, SELF-CARE Instructions: Head Injury Precautions ([facility]), Scalp Laceration ([facility]) Referrals: TIM BOND MD [NO LOCAL MD] - Follow up in 3-5 days Scribe Attestation: 02/21/18 23:58 I personally performed the services described in the documentation, reviewed and edited the documentation which was dictated to the scribe in my presence, and it accurately records my words and actions. (VON VIVAR) Scribe Documentation - Scribe Written by Scribe:: Ivan Flynn, 02/21/2017 21:13 acting as scribe for :: Ashleigh <GERALDINE PIZARRO - Last Filed: 02/21/18 23:39>
--- NOTE | 2018-02-21 21:36 | RADIOLOGY REPORT (SQ) ---
EXAM DESCRIPTION: CT HEAD WITHOUT IV CONTRAST COMPLETED DATE/TME: 02/21/2018 21:04 CLINICAL HISTORY: 73 years, Female, fall, head injury COMPARISON: 11/22/2017 CT TECHNIQUE: 184 Images stored on PACS. All CT scanners at this facility use dose modulation, iterative reconstruction, and/or weight based dosing when appropriate to reduce radiation dose to as low as reasonably achievable (ALARA). [facility]: Dose Right [facility]: CareDose [facility]: Dose Right [facility]: Teradose 4D [facility]: Switch Identity Governance LIMITATIONS: None. FINDINGS: The globes are intact. Mucosal thickening of the left maxillary sinus. No displaced or depressed skull fracture. Right posterior parietal scalp hematoma. Negative for acute intracranial hemorrhage. CT is limited for evaluation of acute infarct. No CT evidence for large or territorial acute infarct. Diffuse atrophy with small vessel ischemic change. No mass or midline shift. IMPRESSION: Right posterior parietal scalp hematoma. Atrophy. Small vessel ischemic change. Mucosal thickening left maxillary sinus. TECHNICAL DOCUMENTATION: Quality ID # [id number]: Final reports with documentation of one or more dose reduction techniques (e.g., Automated exposure control, adjustment of the mA and/or kV according to patient size, use of iterative reconstruction technique) copyright 2010 [employer]- All Rights Reserved
[2018-02-21] MEDS ORDERED: DIPH/PERTUSS(ACELL)/TETANUS VAC/PF 0.5 ML SYR (>=10YO) IM ONE (22:29)
[2018-02-21 23:28] VITALS: BP 113/61
== END 2018-02-21 23:32 | disposition home or self-care (01) ==
LOC: ER 20:25
DX: S01.01XA Laceration without foreign body of scalp, initial encounter (principal); S09.93XA Unspecified injury of face, initial encounter; W01.0XXA Fall on same level from slipping, tripping and stumbling without subsequent striking against object, initial encounter; I25.10 Atherosclerotic heart disease of native coronary artery without angina pectoris; I48.91 Unspecified atrial fibrillation; I11.0 Hypertensive heart disease with heart failure; E11.9 Type 2 diabetes mellitus without complications; I25.2 Old myocardial infarction; Z86.73 Personal history of transient ischemic attack (TIA), and cerebral infarction without residual deficits; Z88.6 Allergy status to analgesic agent; Z79.02 Long term (current) use of antithrombotics/antiplatelets; Z95.810 Presence of automatic (implantable) cardiac defibrillator; Z90.49 Acquired absence of other specified parts of digestive tract; Z98.51 Tubal ligation status; Z23 Encounter for immunization
CPT/HCPCS: 70450; 90471; 90715; 99284

== ENCOUNTER → 2018-04-02 | Outpatient (CLI) | payer MEDICARE, BC, OTHER ==
[2018-04-02 13:30] LABS: IRON(TIBC) 47.9 ug/dL (37-170)
== END ==
LOC: OD 11:49
PROVIDERS: ATTEND Internal Medicine Nephrology
DX: I12.9 Hypertensive chronic kidney disease with stage 1 through stage 4 chronic kidney disease, or unspecified chronic kidney disease (principal); N18.4 Chronic kidney disease, stage 4 (severe)
CPT/HCPCS: 36415; 82728; 83540; 83550; 84466

== ENCOUNTER → 2018-04-15 | Outpatient (CLI) | payer MEDICARE, BC, OTHER ==
[2018-04-15 12:20] LABS: ALBUMIN 3.5 g/dL (3.5-5.0); ANION GAP 12 (5-19); BLOOD UREA NITROGEN 48 mg/dL (7-20); CARBON DIOXIDE 18 mmol/L (22-30); CHLORIDE 103 mmol/L (98-107); GLUCOSE 159 mg/dL (75-110); POTASSIUM 4.6 mmol/L (3.6-5.0); SODIUM 133.1 mmol/L (137-145)
[2018-04-15 12:26] LABS: URINE CREATININE 36.3 mg/dL (15-278)
[2018-04-15 12:42] LABS: UR PRO/CREAT RATIO RESULT 7.4 mg/mg (0.0-0.2); URINE PROTEIN 268.5 mg/dL (<12)
== END ==
LOC: OD 11:26
PROVIDERS: ATTEND Internal Medicine Nephrology
DX: N18.3 Chronic kidney disease, stage 3 (moderate) (principal)
CPT/HCPCS: 36415; 80069; 82570; 83970; 84156

== ENCOUNTER → 2018-06-12 | Outpatient (CLI) | payer MEDICARE, BC, OTHER ==
[2018-06-12 11:49] LABS: ANION GAP 13 (5-19); BLOOD UREA NITROGEN 43 mg/dL (7-20); CARBON DIOXIDE 21 mmol/L (22-30); CHLORIDE 102 mmol/L (98-107); GLUCOSE 152 mg/dL (75-110); POTASSIUM 4.7 mmol/L (3.6-5.0); SODIUM 135.9 mmol/L (137-145)
[2018-06-12 12:09] LABS: URINE PROTEIN 333.1 mg/dL (<12)
== END ==
LOC: OD 10:27
PROVIDERS: ATTEND Internal Medicine Nephrology
DX: N18.4 Chronic kidney disease, stage 4 (severe) (principal)
CPT/HCPCS: 36415; 80048; 82570; 84156

== ENCOUNTER → 2018-07-10 | Outpatient (CLI) | payer MEDICARE, BC, OTHER ==
--- NOTE | 2018-07-11 15:46 | WOMENS IMAGING REPORT ---
EXAM DESCRIPTION: U/S BREAST UNILAT LIMITED COMPLETED DATE/TIME: 07/10/2018 1:48 pm REASON FOR STUDY: N63.13 Z12.31 ENCNTR SCREEN MAMMOGRAM FOR MALIGNANT NEOPLASM OF [place] COMPARISON: 05/15/2011 TECHNIQUE: Real-time and static grayscale imaging performed of the right lateral chest, lateral to t he right breast targeted to the area clinical concern. Selected color Doppler images recorded. LIMITATIONS: No outside studies from [facility] are available FINDINGS: Multiple hypoechoic solid enlarged lymph nodes are present in the axilla extending down al bert the right lateral chest wall, lateral to the right breast. The largest of these is 6 x 2 cm in s ize. Consider biopsy to evaluate for lymphoproliferative disease. IMPRESSION: Multiple hypoechoic solid enlarged lymph nodes in the right axilla extending down the ri ght lateral chest wall. Biopsy is recommended to evaluate for lymphoproliferative disease versus radha lu breast cancer BIRAD: BI-RADS 5 RECOMMENDATION: RECOMMENDED FOLLOW-UP: Lymph node biopsy is indicated COMMENT: The [employer] ([employer]) has developed recommendations for screening MRI of the breasts in certain patient populations, to be used in conjunction with mammography. Breast MRI s urveillance may be appropriate for women with more than 20% lifetime risk of developing breast cancer as determined by genetic testing, significant family history of the disease, or history of mantle r adiation for Hodgkins Disease. [employer] Practice Guidelines 2008. TECHNICAL DOCUMENTATION: JOB ID: [id number] [employer]- All Rights Reserved Reading location - IP/workstation name: [email or web address]
== END ==
LOC: WI 13:46
PROVIDERS: ATTEND Family Medicine
DX: Z12.31 Encounter for screening mammogram for malignant neoplasm of breast (principal); N63.13 Unspecified lump in the right breast, lower outer quadrant
CPT/HCPCS: 76642

== ENCOUNTER → 2018-08-28 | Outpatient (CLI) | payer MEDICARE, BC, OTHER ==
[2018-08-28 12:23] LABS: ALBUMIN 3.2 g/dL (3.5-5.0); ANION GAP 12 (5-19); BLOOD UREA NITROGEN 46 mg/dL (7-20); CALCIUM 8.6 mg/dL (8.4-10.2); CARBON DIOXIDE 23 mmol/L (22-30); CHLORIDE 97 mmol/L (98-107); GLUCOSE 165 mg/dL (75-110); POTASSIUM 4.6 mmol/L (3.6-5.0); SODIUM 131.6 mmol/L (137-145)
== END ==
LOC: OD 11:28
PROVIDERS: ATTEND Internal Medicine Nephrology
DX: N18.5 Chronic kidney disease, stage 5 (principal)
CPT/HCPCS: 36415; 80069

== ENCOUNTER → 2018-09-04 | Outpatient (CLI) | payer MEDICARE, BC, OTHER ==
[2018-09-04 11:46] LABS: ABSOLUTE EOSINOPHILS # (AUTO) 0.1 10^3/uL (0.0-0.6); ABSOLUTE LYMPHOCYTES (AUTO) 0.7 10^3/uL (0.5-4.7); ABSOLUTE MONOCYTES (AUTO) 0.3 10^3/uL (0.1-1.4); ABSOLUTE NEUT (AUTO) 4.1 10^3/uL (1.7-8.2); BASOPHILS % (AUTO) 0.6 % (0-2); EOSINOPHILS % (AUTO) 2.7 % (0-6); HEMATOCRIT 28.5 % (36.0-47.0); HEMOGLOBIN 9.5 g/dL (12.0-15.5); LYMPHOCYTES % (AUTO) 13.3 % (13-45); MEAN CORPUSCULAR HGB CONC 33.4 g/dL (32.0-36.0); MEAN CORPUSCULAR VOLUME 93 fl (80-97); PLATELET COUNT 137 10^3/uL (150-450); RED BLOOD COUNT 3.07 10^6/uL (3.72-5.28); RED CELL DISTRIBUTION WIDTH 16.3 % (11.5-14.0); SEGMENTED NEUTROPHILS % (AUTO) 77.4 % (42-78); TOTAL CELLS COUNTED % (AUTO) 100 %; WHITE BLOOD COUNT 5.3 10^3/uL (4.0-10.5)
[2018-09-04 12:05] LABS: ALBUMIN 3.4 g/dL (3.5-5.0); ANION GAP 11 (5-19); BLOOD UREA NITROGEN 51 mg/dL (7-20); CALCIUM 9.1 mg/dL (8.4-10.2); CARBON DIOXIDE 23 mmol/L (22-30); CHLORIDE 100 mmol/L (98-107); GLUCOSE 165 mg/dL (75-110); POTASSIUM 4.7 mmol/L (3.6-5.0)
== END ==
LOC: OD 11:22
PROVIDERS: ATTEND Internal Medicine Nephrology
DX: N18.3 Chronic kidney disease, stage 3 (moderate) (principal)
CPT/HCPCS: 36415; 80069; 82306; 83970; 85025